=== PATIENT | female | born 1935 | race Caucasian/White ===

== ENCOUNTER → 2016-04-18 | Outpatient (CLI) | payer MEDICARE ==
[~2016-04-18] MED LIST: REGADENOSON 0.4 MG/5 ML SYRINGE IV ONE
--- NOTE | 2016-04-18 12:37 | NM ---
"EXAMINATION TYPE: NM stress lexiscan cardiolite DATE OF EXAM: 04/18/2016 12:17 PM COMPARISON: NONE HISTORY: Abnormal EKG TECHNIQUE: After the intravenous administration of 10.05 mCi Tc 99m Sestamibi - Cardiolite resting S PECT images acquired 34 minutes post injection. The patient received 0.4mg Lexiscan, 27.5 mCi Tc 99m Sestamibi - Stress images obtained [address] injection FINDINGS: Review of stress and rest SPECT images demonstrates reduced uptake involving the anterior and apical septal portion of the myocardium. Reduced regional wall motion activity in the region. Appears be a s mall focal area of stress-induced reversibility involving the apex myocardium. Gated analysis shows n ormal wall motion with an estimated left ventricular ejection fraction of 27 %. IMPRESSION: Findings suggest a small area of stress-induced reversible ischemia apex of the myocardium. Areas of previous fixed defect also noted. Ejection fraction only 27% A Yellow message has been communicated to Axel Cottre MD via the [employer] | Critical Result sy stem on 04/18/2016 12:35 PM, Message ID [id number]."
--- NOTE | 2016-04-18 15:33 | EST ---
DATE OF SERVICE: 04/18/2016 AGE: 80Y SEX: F HT: 5'2" WT: 145 lbs. Protocol Jeffrey: Others: Stage: Dur. of Exercise: *Heart Rate Blood Pressure *Rest: 100 Rest: 105/69 * *Max. Achieved: 110 Maximum BP: 140/62 85% PMHR: 100% PMHR: *METS: INDICATIONS: Abnormal EKG MEDICATIONS: See list. The test is being done to evaluate cardiac status. Baseline EKG showed sinus rhythm with normal UT interval and QRS duration. Standard dose of Lexiscan was infused. EKGs did not reveal any changes. FINAL IMPRESSION: 1. Negative Lexiscan stress test. 2. Report on the nuclear images to be given by the radiologist.
== END | disposition home or self-care (01) ==
LOC: RADNMMAIN 09:04
PROVIDERS: ATTEND Family Medicine
DX: R94.31 Abnormal electrocardiogram [ECG] [EKG] (principal)
CPT/HCPCS: 93017; 78452; A9500; J2785

== ENCOUNTER 2016-05-16 06:32 | Day surgery (SDC) | payer MEDICARE ==
[2016-05-15 11:20] VITALS: BMI 29.2
[~2016-05-16 06:32] MED LIST changes: +ALPRAZolam 0.25 MG TAB PO PRN; +ALPRAZolam 0.5 MG TAB PO PRN; +ASPIRIN 325 MG TAB PO STA; +ATORVASTATIN 80 MG TAB PO STA; +NITROGLYCERIN SL TABS 0.4 MG TAB SUBLINGUAL PRN; -REGADENOSON 0.4 MG/5 ML SYRINGE IV ONE; +SODIUM CHLORIDE 0.9% 1,000 ML in EMPTY BAG 1 BAG IV ONE
[2016-05-16 07:05] LABS: Glucose,Whole Blood 163 mg/dL (75-99)
[2016-05-16] MEDS ORDERED: SODIUM CHLORIDE 0.9% 1,000 ML IV ONE (07:05)
[2016-05-16 07:12] LABS: Basophils # (A) 0.1 k/uL (0-0.2); Basophils % (A) 1 %; CH 26.6; Eosinophils # (A) 0.2 k/uL (0-0.7); Eosinophils % (A) 2 %; HCT 43.2 % (34.0-46.0); HDW 3.09; HGB 13.3 gm/dL (11.4-16.0); Hypochromasia Marked; Luc % (Auto) 4; Lymphocytes # (A) 1.5 k/uL (1.0-4.8); Lymphocytes % (A) 18 %; MCH 27.5 pg (25.0-35.0); MCHC 30.9 g/dL (31.0-37.0); MCV 89.2 fL (80.0-100.0); Mean Platelet Volume 7.4; Monocytes # (A) 0.7 k/uL (0-1.0); Monocytes % (A) 8 %; Neutrophils # (A) 5.9 k/uL (1.3-7.7); Neutrophils % (A) 68 %; RBC 4.84 m/uL (3.80-5.40); RDW 15.4 % (11.5-15.5); WBC 8.8 k/uL (3.8-10.6); WBC (Perox) 8.68
[2016-05-16 07:13] VITALS: TEMP 97.7
[2016-05-16] MEDS ORDERED: LIDOCAINE 2% INJ 20 MG/ML (20 ML MDV) ONE ×2 (07:16→10:56)
[2016-05-16 07:20] LABS: Anion Gap 10 mmol/L; Blood Urea Nitrogen 34 mg/dL (7-17); Calcium 9.3 mg/dL (8.4-10.2); Carbon Dioxide 30 mmol/L (22-30); Chloride 104 mmol/L (98-107); Glucose 181 mg/dL (74-99); Non-African American GFR(MDRD) 60 (>60 ml/min/1.73 sqM); Potassium 4.7 mmol/L (3.5-5.1); Sodium 144 mmol/L (137-145)
[2016-05-16] MEDS ORDERED: fentaNYL (PF) 50 MCG/ML 2 ML AMP ONE (07:33)
[2016-05-16] MEDS ORDERED: diphenhydrAMINE 50 MG/ML 1 ML VIAL ONE ×2 (07:33→10:56)
[2016-05-16] MEDS ORDERED: HEPARIN SODIUM 1,000 UNIT/ML VIAL ONE (07:34)
[2016-05-16] MEDS ORDERED: VERAPAMIL 2.5 MG/ML 2 ML AMP ONE ×2 (07:34→07:37)
[2016-05-16] MEDS ORDERED: SODIUM CHLORIDE 0.9% (PF) 10 ML VIAL ONE ×2 (07:34→07:37)
[2016-05-16] MEDS: fentaNYL (PF) 50 MCG/ML 2 ML AMP IV ONE ×2 (07:55→07:59)
[2016-05-16] MEDS ORDERED: diphenhydrAMINE 50 MG/ML 1 ML VIAL IVP ONE (07:55)
[2016-05-16] MEDS ORDERED: fentaNYL (PF) 50 MCG/ML 2 ML AMP IV ONE (07:59)
[2016-05-16] MEDS ORDERED: LIDOCAINE 2% INJ 20 MG/ML SQ ONE (07:59)
[2016-05-16] MEDS ORDERED: VERAPAMIL SYRINGE (5 MG/10 ML) INTRAARTER ONE (08:00)
[2016-05-16] MEDS ORDERED: HEPARIN SODIUM 1,000 UNIT/ML VIAL IV ONE (08:02)
[2016-05-16] MEDS ORDERED: IOHEXOL 300 MG/ML 100 ML BOTTLE IV ONE (08:15)
[2016-05-16] MEDS ORDERED: RX INFO: IV CONTRAST WAS GIVEN 1 EACH MISC MISCELLANE PRN (08:33)
[2016-05-16] MEDS ORDERED: IPRATROPIUM 0.5 MG/2.5 ML NEBU INHALATION PRN ×2 (08:34→08:37)
[2016-05-16] MEDS ORDERED: SODIUM CHLORIDE 0.9% 1,000 ML IV SCH (08:45)
[2016-05-16] MEDS ORDERED: INSULIN ASPART INJ SCH (08:45)
[2016-05-16] MEDS ORDERED: ATORVASTATIN 20 MG TAB PO SCH (09:00)
[2016-05-16] MEDS ORDERED: LISINOPRIL 2.5 MG TAB PO SCH (09:00)
[2016-05-16] MEDS ORDERED: BUMETANIDE 1 MG TAB PO SCH (09:00)
[2016-05-16] MEDS ORDERED: aMILoride-HCTZ 5-50 mg 1 EACH TAB PO SCH (09:00)
[2016-05-16] MEDS ORDERED: ASPIRIN 81 MG CHEW PO SCH (09:00)
[2016-05-16] MEDS ORDERED: METOPROLOL TARTRATE 25 MG TAB PO SCH (09:00)
[2016-05-16] MEDS ORDERED: MULTIVITAMINS, THERA 1 EACH TAB PO SCH (09:00)
--- NOTE | 2016-05-16 09:06 | CC ---
DATE OF SERVICE: Mrs. Jensen is a 80-year-old female with a history of hypertension, hyperlipidemia, diabetes mellitus, chronic tobacco use, who was diagnosed with a lung mass, was evaluated for surgical intervention, underwent a stress test. This revealed a severely impaired left ventricular systolic function with an apical defect. In view of that, recommendation made cardiac catheterization. The procedure as well as risks and complications were discussed with the patient who is in full understanding and agreement. PROCEDURE: Patient was brought to the [facility] [employer] in a fasting semi-sedated state after receiving fentanyl and Benadryl. She was draped and prepped in conventional fashion. Using Xylocaine anesthesia and Seldinger technique, a 6 Honduran sheath was introduced in the right radial artery. Selective right angiography using 5 Honduran 3-1/2 Bend, right and left Princess catheters, multiple view of the coronary artery including hemiaxial views were obtained. Following that, a 5 Honduran tight pigtail catheter was introduced into the left ventricle and a 30 degree LANCE view of the left ventricle was obtained. Following that, catheter and sheaths were removed. Hemostasis was obtained with deployment of a TR band. There were no immediate complications. Patient is returned to her room in stable condition. Of note, that patient received 4000 units of intravenous heparin as well as intra-arterial verapamil. FINDINGS: FLUOROSCOPY: There is significant calcification involving the proximal left anterior descending artery and the left main as well as the ostial right coronary artery. LEFT MAIN: This is a large-size vessel bifurcating into left circumflex, left anterior descending artery. Left main coronary artery has a 10% plaque distally. LEFT ANTERIOR DESCENDING ARTERY: This is a large-size vessel reaching toward the apex with a wraparound apex segment, giving rise to 2 diagonal branch of moderate to large caliber. The left anterior descending artery in the mid segment has an intimal disease of about 30% without any evidence of high-grade stenosis. LEFT CIRCUMFLEX: This is a nondominant vessel, giving rise to an obtuse marginal branch. The left circumflex has no evidence of high-grade stenosis. RIGHT CORONARY ARTERY: This is a large dominant vessel bifurcating into PDA and posterolateral segment and branches. The right coronary artery in mid segment has mild intimal plaque of 10%. The rest of the vessel has no high-grade stenosis. LEFT VENTRICULOGRAM: Left ventriculogram was performed in 30 degree LANCE view and revealed severe impairment in the left ventricular systolic function. Ejection fraction of 15% with severe global hypokinesis. There was dilatation of the left ventricle and no significant mitral regurgitation. HEMODYNAMICS: There was no gradient across the aortic valve. The left ventricle end-diastolic pressure was 24 to 26 mmHg. CONCLUSION: 1. Calcified coronary arteries. 2. Mild triple vessel coronary artery disease. 3. Severely impaired left ventricular systolic function. RECOMMENDATION: Those findings are consistent with nonischemic cardiomyopathy. At this time, I would recommend to maximize her medical therapy with close followup of her left ventricular systolic function. Patient has been evaluated for possible surgical intervention regarding her lung cancer. The prognosis unfortunately is guarded.
--- NOTE | 2016-05-16 09:09 | LTR ---
May 16, 2016 RE: Rupa Jensen Dear Dr. Cotter; I had the pleasure to perform cardiac catheterization on Mrs. Jensen at [facility] on May 16, 2016 and a full copy of the procedure note will be forwarded to you. In brief, she was found to have a mild triple vessel coronary artery disease with a severely impaired left ventricular systolic function and based on those findings, I have recommended to continue medical therapy. Will optimize her treatment and depending on her progress, further recommendation will be made. Thank you again for allowing me to participate in this patient's care. Please feel to call for any questions. Sincerely yours, ANSHUL JOHNSON MD
[2016-05-16] MEDS ORDERED: MIDAZOLAM 2 MG/2 ML VIAL ONE (10:57)
[2016-05-16] MEDS ORDERED: NITROGLYCERIN SL TABS 0.4 MG TAB SUBLINGUAL ONE (11:11)
[2016-05-16 11:30] VITALS: RESP 16
[2016-05-16] MEDS ORDERED: CLOPIDOGREL 75 MG TAB ONE ×2 (11:39)
[2016-05-16 12:51] VITALS: BP 113/59; PULSE 90
[2016-05-16] MEDS ORDERED: INSULIN GLARGINE 100 UNIT/ML 10 ML VIAL SQ SCH (21:00)
--- NOTE | 2016-05-20 13:17 | CDI ---
Pt Name: Rupa Jensen CONFIDENTIAL MR#: [id number] Adm Date: 05/16/2016 6:32:00 AM Printed:05/20/2016 Physician Documentation Request Page 1 of 1 ICD-10-CM Ready Physicians Documentation Request Patient: Rupa Jensen EPI: [id number] Account: [id number] Payer: MEDICARE HMO Facility: [facility] Location: - Admit Date: 05/16/2016 6:32:00 AM Query Send By: Allyssa West Phone #: Ext. Communication Date: 05/20/2016 1:12:00 PM Clarification Outpatient By submitting this query, we are merely seeking further clarification of documentation to accurately reflect all conditions that you are monitoring, evaluating, treating or that extend the hospitalization or utilize additional resources of care. Please utilize your independent clinical judgment when addressing the question(s) below. Dear Doctor Aide Salazar, The patients Clinical Indicators include: see below Documentation Clarification OP The Cardiac Cath Report states the patient was "semi-sedated" with fentanyl and Benadryl. Please clarify the level of sedation, such as moderate. Thank you! PLEASE DOCUMENT ANY ADDITIONAL DIAGNOSES AND/OR SPECIFICITY IN THE PROGRESS NOTES AND/OR DISCHARGE SUMMARY. Agreed & documented Unable to determine/unknown Disagree with the above request Need to discuss MTDD
--- NOTE | 2016-05-28 09:03 | CDI ---
Pt Name: Rupa Jensen CONFIDENTIAL MR#: [id number] Adm Date: 05/16/2016 6:32:00 AM Printed:05/28/2016 Physician Documentation Request Page 1 of 1 ICD-10-CM Ready Physicians Documentation Request Patient: Rupa Jensen EPI: [id number] Account: [id number] Payer: MEDICARE HMO Facility: [facility] Location: - Admit Date: 05/16/2016 6:32:00 AM Query Send By: Allyssa West Phone #: Ext. Communication Date: 05/28/2016 9:00:00 AM Clarification Outpatient By submitting this query, we are merely seeking further clarification of documentation to accurately reflect all conditions that you are monitoring, evaluating, treating or that extend the hospitalization or utilize additional resources of care. Please utilize your independent clinical judgment when addressing the question(s) below. Dear Doctor Aide Salazar, The patients Clinical Indicators include: see below Documentation Clarification OP The Cardiac Cath Report states the patient was "semi-sedated" with fentanyl and Benadryl. Please clarify the level of sedation, such as moderate. Please document as an addendum. Thank you! PLEASE DOCUMENT ANY ADDITIONAL DIAGNOSES AND/OR SPECIFICITY IN THE PROGRESS NOTES AND/OR DISCHARGE SUMMARY. Agreed & documented Unable to determine/unknown Disagree with the above request Need to discuss MTDD
--- NOTE | 2016-06-04 08:34 | CDI ---
Pt Name: Rupa Jensen CONFIDENTIAL MR#: [id number] Adm Date: 05/16/2016 6:32:00 AM Printed:06/04/2016 Physician Documentation Request Page 1 of 1 ICD-10-CM Ready Physicians Documentation Request Patient: Rupa Jensen EPI: [id number] Account: [id number] Payer: MEDICARE HMO Facility: [facility] Location: - Admit Date: 05/16/2016 6:32:00 AM Query Send By: Allyssa West Phone #: Ext. Communication Date: 06/04/2016 8:33:00 AM Clarification Outpatient By submitting this query, we are merely seeking further clarification of documentation to accurately reflect all conditions that you are monitoring, evaluating, treating or that extend the hospitalization or utilize additional resources of care. Please utilize your independent clinical judgment when addressing the question(s) below. Dear Doctor Aide Salazar, The patients Clinical Indicators include: SEE BELOW Documentation Clarification OP The cardiac cath report states "semi-sedated state after receiving fentanyl and Benadryl." Will you please clarify the level of sedation, such as moderate. This information is required for proper coding and billing purposes. Please answer as an addendum to your op report. If you don't understand what is needed , please contact my manager telemarketing, Denise Fernandez . Thank you. PLEASE DOCUMENT ANY ADDITIONAL DIAGNOSES AND/OR SPECIFICITY IN THE PROGRESS NOTES AND/OR DISCHARGE SUMMARY. Agreed & documented Unable to determine/unknown Disagree with the above request Need to discuss MTDD
--- NOTE | 2016-06-07 12:13 | CC ---
ADDENDUM TO CARDIAC CATHETERIZATION REPORT: Sedation was moderate instead of semi-sedated.
== END 2016-05-16 14:34 | disposition home or self-care (01) ==
LOC: CATHCVL 06:32
PROVIDERS: ATTEND Internal Medicine Interventional Cardiology
DX: I25.10 Atherosclerotic heart disease of native coronary artery without angina pectoris (principal); R94.39 Abnormal result of other cardiovascular function study; I42.9 Cardiomyopathy, unspecified; E78.2 Mixed hyperlipidemia; I10 Essential (primary) hypertension; E11.9 Type 2 diabetes mellitus without complications; F17.210 Nicotine dependence, cigarettes, uncomplicated; E78.00 Pure hypercholesterolemia, unspecified; Z79.84 Long term (current) use of oral hypoglycemic drugs; Z79.4 Long term (current) use of insulin; Z79.899 Other long term (current) drug therapy
CPT/HCPCS: 93458; 80048; 85025; 99152; C1894; C1769; J2001; J1200; J3010; J1644; Q9967

== ENCOUNTER → 2017-01-14 | Outpatient (CLI) | payer MEDICARE ==
--- NOTE | 2017-01-14 19:21 | CT ---
EXAMINATION TYPE: CT chest wo con DATE OF EXAM: 01/14/2017 COMPARISON: 01/31/2016 HISTORY: Shortness of breath. CT DLP: 283.30 mGycm. Automated Exposure Control for Dose Reduction was Utilized. TECHNIQUE: CT scan of the thorax is performed without IV contrast. FINDINGS: There is diffuse pulmonary emphysema. This is more noticeable in the upper lobes. There is a 1.8 cm s tellate nodule adjacent to the aortic arch in the anterior left upper lobe. Heart is enlarged. Ascend ing aorta measures 3.5 cm. There is no pleural effusion. There is no pericardial effusion. There is s ome atherosclerotic vascular calcification. There are spondylotic changes in the thoracic spine. IMPRESSION: Cardiomegaly. Spiculated left upper lobe nodule appears increased slightly in size compar ed to old CT scan of 01/31/2016 and is suspicious for tumor. Follow-up is recommended. This measures 1.3 cm on the old exam. Emphysema.
== END | disposition home or self-care (01) ==
LOC: RADCTMAIN 16:45
PROVIDERS: ATTEND Internal Medicine
DX: J43.9 Emphysema, unspecified (principal); I51.7 Cardiomegaly
CPT/HCPCS: 71250

== ENCOUNTER → 2017-01-25 | Outpatient (CLI) | payer MEDICARE ==
--- NOTE | 2017-01-26 13:38 | PE ---
Nuclear medicine PET/CT HISTORY: Lung mass, pulmonary nodule, R 91.1 Patient received 11.8 mCi F-18 FDG intravenously and delayed scanning was performed from the skull ba se to the mid thighs. Localization and attenuation correction CT was performed, exam is correlated to prior nuclear medicine PET/CT 03/02/2016, chest CT 01/14/2017 Neck and chest: The left upper lobe pulmonary nodule adjacent to the aorta is again seen and shows as sociated hypermetabolic uptake, SUV is 21, the nodule has increased in size as reported on prior CT a nd shows spiculated margins. There is no adenopathy. Heart remains enlarged. There are coronary arter y calcifications. Cystic focus at the cardiophrenic angle on the right is again seen. Abdomen pelvis: There is no adrenal mass. No retroperitoneal adenopathy. Nonobstructive renal calculi suspected. Umbilical hernia contains fat. Extensive uptake associated with bowel is likely physiolog ic. Osseous structures are stable IMPRESSION: Left upper lobe lung nodule is increasing in size and suspicious for bronchogenic carcino ma, consider cardiothoracic surgery consult.
== END | disposition home or self-care (01) ==
LOC: RADPETMAIN 13:09
PROVIDERS: ATTEND Internal Medicine
DX: R91.1 Solitary pulmonary nodule (principal)
CPT/HCPCS: 78815; A9552

== ENCOUNTER → 2017-05-19 | Outpatient (CLI) | payer MEDICARE ==
--- NOTE | 2017-05-19 13:25 | CT ---
EXAMINATION TYPE: CT chest wo con DATE OF EXAM: 05/19/2017 COMPARISON: PET/CT dated 01/25/2017 and 03/02/2016 as well as chest CTs dated 01/14/2017 and 01/31/20 16 HISTORY: Follow up scan. No complaints at time of scan . Pulmonary nodule CT DLP: 351 mGycm. Automated Exposure Control for Dose Reduction was Utilized. TECHNIQUE: CT scan of the thorax is performed without IV contrast. FINDINGS: LUNGS: There is redemonstration of a spiculated 1.1 x 0.9 x 1.3 cm medial left upper lobe pulmonary n odule that is highly suspicious for carcinoma. This measures a maximum SUV of 21 on the prior PET/CT. This is superimposed upon moderate centrilobular emphysematous change. Triangular-shaped scarring or . Fissural lymph node is seen on series 4 image 31 on the right. No new pulmonary nodules are identif ied. Probable area of atelectasis within the right upper lobe on series 4 image 18 medially is unchan ged from the prior. MEDIASTINUM: Lack of IV contrast is noted to limit evaluation for mediastinal and especially hilar ad enopathy. There are no definitive greater than 1 cm hilar or mediastinal lymph nodes. Precarinal lym ph node measures 1 cm in short axis on series 3 image 25. No cardiomegaly or pericardial effusion is seen. Main pulmonary artery and right and left main pulmonary arteries are enlarged which may clinica lly correlate pulmonary arterial hypertension. Moderate three-vessel coronary artery calcifications a nd cardiac valvular calcifications are noted. Heart is mildly enlarged. OTHER: Nonobstructing left-sided renal calculi are redemonstrated. Multilevel moderate degenerative c hanges of the spine are seen. No new suspicious osseous lesion is present. IMPRESSION: 1. Although the medial left upper lobe spiculated pulmonary nodule stable in size this remains highly suspicious for carcinoma with marked hypermetabolic activity on the prior PET/CT. 2. Moderate centrilobular emphysematous change. 3. Enlargement of the main pulmonary artery, which may clinically correlate with pulmonary arterial h ypertension. 4. Moderate three-vessel coronary artery calcifications, marker for coronary artery disease. 5. Redemonstration of nonobstructing left-sided renal calculi.
== END | disposition home or self-care (01) ==
LOC: RADCTMAIN 12:46
PROVIDERS: ATTEND Radiology Diagnostic Radiology
DX: C34.92 Malignant neoplasm of unspecified part of left bronchus or lung (principal); I77.89 Other specified disorders of arteries and arterioles; I25.10 Atherosclerotic heart disease of native coronary artery without angina pectoris; J43.9 Emphysema, unspecified
CPT/HCPCS: 71250

== ENCOUNTER → 2017-09-03 | Outpatient (CLI) | payer MEDICARE ==
[2017-09-03 10:43] LABS: Basophils % (A) 1 %; Eosinophils # (A) 0.1 k/uL (0-0.7); Eosinophils % (A) 2 %; HCT 36.7 % (34.0-46.0); Lymphocytes # (A) 1.3 k/uL (1.0-4.8); Lymphocytes % (A) 19 %; MCH 31.1 pg (25.0-35.0); MCHC 32.9 g/dL (31.0-37.0); MCV 94.7 fL (80.0-100.0); Mean Platelet Volume 7.4; Monocytes # (A) 0.5 k/uL (0-1.0); Monocytes % (A) 7 %; Neutrophils # (A) 4.6 k/uL (1.3-7.7); Neutrophils % (A) 69 %; Platelet Count 204 k/uL (150-450); RBC 3.87 m/uL (3.80-5.40); RDW 13.9 % (11.5-15.5); WBC 6.6 k/uL (3.8-10.6)
[2017-09-03 12:03] LABS: Erythrocyte Sedimentation Rate 26 mm/hr (0-20)
== END | disposition home or self-care (01) ==
LOC: LABWHC1 10:10
PROVIDERS: ATTEND Internal Medicine Gastroenterology
DX: K52.9 Noninfective gastroenteritis and colitis, unspecified (principal)
CPT/HCPCS: 36415; 83516; 85025; 85652; 86140

== ENCOUNTER → 2017-10-16 | Outpatient (CLI) | payer MEDICARE | END | disposition home or self-care (01) | LOC: RADCTMAIN 11:47 | PROVIDERS: ATTEND Radiology Diagnostic Radiology | DX: C34.90 Malignant neoplasm of unspecified part of unspecified bronchus or lung (principal) | CPT/HCPCS: 82565; 84520 ==

== ENCOUNTER → 2017-10-21 | Outpatient (CLI) | payer MEDICARE ==
--- NOTE | 2017-10-21 22:36 | US ---
EXAMINATION TYPE: US kidneys/renal and bladder DATE OF EXAM: 10/21/2017 COMPARISON: NONE CLINICAL HISTORY: 82-year-old female Acute renal failure N17.1; diabetic; lung CA TECHNIQUE: Multiple sonographic images of the kidneys and bladder are obtained. FINDINGS: EXAM MEASUREMENTS: Right Kidney: 7.3 x 4.6 x 4.3 cm Left Kidney: 7.9 x 4.9 x 4.3 cm Post Void Residual Volume: emptied Right Kidney: No hydronephrosis; small size Left Kidney: No hydronephrosis; shadowing echogenic focus in the lower pole measures 9 mm. Additional tiny 3 mm echogenic focus in the midpole is noted. The kidney is small in size. Bladder: not fully distended Bilateral Jets seen: yes Normal Post Void Residual: yes IMPRESSION: 1. No hydronephrosis. 2. Small kidneys compatible with chronic medical renal disease. 3. A couple nonobstructive calculi in the left kidney measuring up to 9 mm. 4. No sonographic evidence for urinary retention.
== END | disposition home or self-care (01) ==
LOC: RADUSWWP 14:27
PROVIDERS: ATTEND Family Medicine
DX: N20.0 Calculus of kidney (principal); N27.1 Small kidney, bilateral; N17.1 Acute kidney failure with acute cortical necrosis
CPT/HCPCS: 76770

== ENCOUNTER 2018-09-01 12:29 | Inpatient (IN) | payer MEDICARE ==
--- NOTE | 2018-09-01 13:06 | ED ---
General Adult HPI - General Chief complaint: Recheck/Abnormal Lab/Rx Stated complaint: Abn labs Time Seen by Provider: 09/01/18 12:45 Source: patient, RN notes reviewed, old records reviewed Mode of arrival: wheelchair Limitations: no limitations - History of Present Illness Initial comments: 83-year-old female with multiple medical problems presenting for evaluation of abnormal outpatient lab. Patient was called yesterday evening at 10 PM indicating that she had a potassium is 6.1H presented to the emergency department. She presented to) For evaluation. She has no complaints. She does have previous lung cancer, history of congestive heart failure, history of chronic kidney disease. She is on 3 L of O2 at home. Denies any worsening dyspnea. Denies cough. Denies chest pain. Denies palpitations. Denies abdominal pain nausea vomiting. - Related Data Home Medications Medication Instructions Recorded Confirmed Aspirin 81 mg PO DAILY 12/23/13 09/01/18 Atorvastatin [Lipitor] 20 mg PO DAILY 12/23/13 09/01/18 INSULIN ASPART (NovoLOG) [NovoLOG See Protocol INJ ACHS 12/23/13 09/01/18 (formulary)] Insulin Glargine [Lantus] 14 units SQ HS 12/23/13 09/01/18 Multivitamins, Thera [Multivitamin 1 tab PO DAILY 12/23/13 09/01/18 (formulary)] aMILoride-HCTZ 5-50 mg [Moduretic 1 tab PO DAILY 12/23/13 09/01/18 5-50] Calcitriol 0.5 mcg PO TUTH 09/01/18 09/01/18 Cholecalciferol [Vitamin D3 (25 1,000 unit PO DAILY 09/01/18 09/01/18 Mcg = 1000 Iu)] Metoprolol Tartrate [Lopressor] 50 mg PO BID 09/01/18 09/01/18 Previous Rx's Medication Instructions Recorded Lisinopril [Zestril] 5 mg PO BID #180 tablet 05/16/16 Allergies Allergy/AdvReac Type Severity Reaction Status Date / Time No Known Allergies Allergy Verified 09/01/18 13:05 Review of Systems ROS Statement: Those systems with pertinent positive or pertinent negative responses have been documented in the HPI. ROS Other: All systems not noted in ROS Statement are negative. Past Medical History Past Medical History: Asthma, Cancer, COPD, Diabetes Mellitus, Hyperlipidemia, Hypertension, Osteoarthritis (OA) Additional Past Medical History / Comment(s): LUNG CANCER-LEFT LUNG, PAIN IN FEET , MACULAR DEGENERATION, EDEMA IN LEG, kidney disease History of Any Multi-Drug Resistant Organisms: None Reported Past Surgical History: Appendectomy, Hernia Repair, Joint Replacement Additional Past Surgical History / Comment(s): UMBILICAL HERNIA, LEFT KNEE REPLACEMENT Past Anesthesia/Blood Transfusion Reactions: No Reported Reaction Past Psychological History: Anxiety Smoking Status: Current every day smoker Past Alcohol Use History: None Reported Past Drug Use History: None Reported - Past Family History Mother Family Medical History: No Reported History Additional Family Medical History / Comment(s): NO KNOWN HISTORY- ADOPTED General Exam Limitations: no limitations General appearance: alert, in no apparent distress Head exam: Present: atraumatic, normocephalic Eye exam: Present: normal appearance. Absent: PERRL, EOMI ENT exam: Present: mucous membranes dry Neck exam: Present: normal inspection. Absent: tenderness, meningismus Respiratory exam: Present: wheezes, decreased breath sounds. Absent: respiratory distress Cardiovascular Exam: Present: normal rhythm, bradycardia Extremities exam: Present: normal capillary refill, pedal edema, other (Erythema, chronic venous stasis) Neurological exam: Present: alert, oriented X3, CN II-XII intact. Absent: motor sensory deficit Psychiatric exam: Present: normal affect, normal mood Skin exam: Present: warm, dry, intact. Absent: cyanosis, diaphoretic Course Vital Signs 09/01/18 09/01/18 09/01/18 12:38 14:19 14:35 Temperature 98.3 F Pulse Rate 55 L 50 L 70 Respiratory 26 H 18 Rate Blood Pressure 136/60 123/60 O2 Sat by Pulse 91 L 96 Oximetry EKG Findings - EKG Comments: EKG Findings:: EKG: Sinus bradycardia, right axis, no ST segment elevation, rate of 49, FL interval 152, QRS duration 86, QTC 411 Medical Decision Making - Medical Decision Making 83-year-old female with abnormal outpatient lab testing. Potassium 6.1. Patient is bradycardic in the 40s. Blood pressure stable. Repeat potassium is 6.2. Patient is given hyperkalemia medications in the emergency department. I discussed the case with Dr. Neda badillo for nephrology. He is familiar with this patient. He is able to evaluate her in the emergency department. Patient is adamant that she will not be admitted. I did admit this patient for hyperkalemia, discussed the case with her primary care physician Dr. Cotter who is agreeable with admission. Ultimately patient continues to refuse admission. She is agreeable with repeat testing of potassium in the emergency department. Repeat potassium is performed, repeat is 5. Patient's bradycardia is resolved. Nephrology did recommend holding amiloride and lisinopril. Replacing this with Norvasc 10 mg. She is given a prescription for Norvasc she will follow-up with nephrology for repeat testing in 2-3 days. - Lab Data Result diagrams: 09/01/18 13:20 09/01/18 17:42 Lab Results 09/01/18 09/01/18 09/01/18 Range/Units 13:20 13:20 13:20 WBC 5.8 (3.8-10.6) k/uL RBC 4.15 (3.80-5.40) m/uL Hgb 12.9 (11.4-16.0) gm/dL Hct 41.1 (34.0-46.0) % MCV 98.9 (80.0-100.0) fL MCH 31.0 (25.0-35.0) pg MCHC 31.4 (31.0-37.0) g/dL RDW 13.5 (11.5-15.5) % Plt Count 187 (150-450) k/uL Neutrophils % 72 % Lymphocytes % 18 % Monocytes % 5 % Eosinophils % 2 % Basophils % 1 % Neutrophils # 4.2 (1.3-7.7) k/uL Lymphocytes # 1.1 (1.0-4.8) k/uL Monocytes # 0.3 (0-1.0) k/uL Eosinophils # 0.1 (0-0.7) k/uL Basophils # 0.0 (0-0.2) k/uL Hypochromasia Slight PT 10.2 (9.0-12.0) sec INR 0.9 (<1.2) APTT 24.4 (22.0-30.0) sec Sodium 141 (137-145) mmol/L Potassium 6.2 H* (3.5-5.1) mmol/L Chloride 102 (98-107) mmol/L Carbon Dioxide 37 H (22-30) mmol/L Anion Gap 2 mmol/L BUN 21 H (7-17) mg/dL Creatinine 1.28 H (0.52-1.04) mg/dL Est GFR (CKD-EPI)AfAm 46 (>60 ml/min/1.73 sqM) Est GFR (CKD-EPI)NonAf 40 (>60 ml/min/1.73 sqM) Glucose 198 H (74-99) mg/dL Calcium 9.4 (8.4-10.2) mg/dL Magnesium 1.9 (1.6-2.3) mg/dL Total Bilirubin 0.7 (0.2-1.3) mg/dL AST 28 (14-36) U/L ALT 33 (9-52) U/L Alkaline Phosphatase 126 (38-126) U/L Total Protein 6.6 (6.3-8.2) g/dL Albumin 3.9 (3.5-5.0) g/dL Critical Care Time Critical Care Time: Yes Total Critical Care Time: 35 Disposition Clinical Impression: Hyperkalemia, Bradycardia Disposition: ADMITTED IP TO THIS [facility] Condition: Serious Is patient prescribed a controlled substance at d/c from ED?: No Decision to Admit Reason: Admit from EC Decision Date: 09/01/18 Decision Time: 14:37
[2018-09-01 13:33] LABS: Basophils % (A) 1 %; Eosinophils # (A) 0.1 k/uL (0-0.7); Eosinophils % (A) 2 %; HCT 41.1 % (34.0-46.0); HGB 12.9 gm/dL (11.4-16.0); Hypochromasia Slight; Lymphocytes # (A) 1.1 k/uL (1.0-4.8); Lymphocytes % (A) 18 %; MCHC 31.4 g/dL (31.0-37.0); MCV 98.9 fL (80.0-100.0); Mean Platelet Volume 7.8; Monocytes # (A) 0.3 k/uL (0-1.0); Monocytes % (A) 5 %; Neutrophils # (A) 4.2 k/uL (1.3-7.7); Neutrophils % (A) 72 %; Platelet Count 187 k/uL (150-450); RBC 4.15 m/uL (3.80-5.40); RDW 13.5 % (11.5-15.5); WBC 5.8 k/uL (3.8-10.6)
[2018-09-01 13:41] LABS: Albumin 3.9 g/dL (3.5-5.0); Calcium 9.4 mg/dL (8.4-10.2); Magnesium 1.9 mg/dL (1.6-2.3); Total Bilirubin 0.7 mg/dL (0.2-1.3); Total Protein 6.6 g/dL (6.3-8.2)
[2018-09-01 13:46] LABS: INR 0.9 (<1.2); Partial Thromboplastin Time 24.4 sec (22.0-30.0); Prothrombin Time 10.2 sec (9.0-12.0)
[2018-09-01 13:49] LABS: Potassium 6.2 mmol/L (3.5-5.1)
[2018-09-01] MEDS ORDERED: CALCIUM GLUCONATE 1 GM in SODIUM CHLORIDE 0.9% 100 ML IVPB ONE (13:50)
[2018-09-01] MEDS ORDERED: SODIUM POLYSTYRENE SULFONATE 15 GM/60 ML BOTTLE PO ONE (13:50)
[2018-09-01] MEDS ORDERED: ALBUTEROL NEB (CONC) 2.5 MG/0.5 ML INHALATION ONE (13:50)
[2018-09-01] MEDS ORDERED: SODIUM BICARB 8.4% 50 ML SYR (1 MEQ/ML) IV ONE (13:59)
[2018-09-01] MEDS ORDERED: INSULIN REGULAR 100 UNIT/ML VIAL IV ONE (13:59)
[2018-09-01] MEDS ORDERED: DEXTROSE 50% SYRINGE 50 ML IVP ONE (13:59)
--- NOTE | 2018-09-01 14:11 | XR ---
EXAMINATION TYPE: XR chest 2V DATE OF EXAM: 09/01/2018 COMPARISON: Chest CT May 19, 2017. PET CT January 25, 2017 HISTORY: History of lung cancer with chest pain per order. TECHNIQUE: Frontal and lateral views of the chest are obtained. FINDINGS: There is background chronic emphysematous change without suspicious focal air space opacit y, pleural effusion, or pneumothorax seen. The cardiac silhouette size is enlarged with left ventric ular dilatation seen on lateral view. The osseous structures are intact. Left upper lobe neoplasm n ot well seen on x-ray versus CT and PET/CT. IMPRESSION: Chronic emphysematous change and cardiomegaly without acute pulmonary process.
[2018-09-01] MEDS ORDERED: NALOXONE 0.4 MG/ML 1 ML VIAL IV PRN (14:22)
[2018-09-01] MEDS ORDERED: SODIUM CHLORIDE 0.9% 1,000 ML IV SCH (14:30)
--- NOTE | 2018-09-01 14:59 | P.NPCON ---
History of Present Illness - Reason for Consult chronic renal failure, hyperkalemia - History of Present Illness Reason for consultation: Hyperkalemia and chronic kidney disease History of present illness: Patient is a 83-year-old female seen in consultation for chronic kidney disease and hyperkalemia. Patient has chronic kidney disease stage III with baseline creatinine near 1.5 secondary to diabetic kidney disease. Patient had blood work done outpatient and was noted to have high potassium level. She was advised to go to the hospital for further care. Patient presented to the hospital today her potassium level was 6.2. Patient was taking amiloride as well as lisinopril at home. Denies chest pain or shortness of breath. No vomiting or diarrhea. Urine output is good. No hematuria or dysuria. Blood glucose was 198. She is not acidotic. Hemodynamically stable. Patient was noted to be bradycardic with heart rate in the low 50s on admission. It is now in the 70s. Patient is very hesitant to stay. She has received medical management for hyperkalemia. Again the patient is refusing to stay in the hospital overnight at this time. Patient was seen in the emergency room. Vital signs are stable. General: The patient appeared well nourished and normally developed. HEENT: Head exam is unremarkable. Neck is without jugular venous distension. LUNGS: Lungs are clear to auscultation and percussion. Breath sounds decreased. HEART: Rate and Rhythm are regular. First and second heart sounds normal. No murmurs, rubs or gallops. ABDOMEN: Abdominal exam reveals normal bowel sounds. Non-tender and non- distended. No evidence of peritonitis. EXTREMITITES: No clubbing, cyanosis, or edema. Past Medical History Past Medical History: Asthma, Cancer, COPD, Diabetes Mellitus, Hyperlipidemia, Hypertension, Osteoarthritis (OA) Additional Past Medical History / Comment(s): LUNG CANCER-LEFT LUNG, PAIN IN FEET , MACULAR DEGENERATION, EDEMA IN LEG, kidney disease History of Any Multi-Drug Resistant Organisms: None Reported Past Surgical History: Appendectomy, Hernia Repair, Joint Replacement Additional Past Surgical History / Comment(s): UMBILICAL HERNIA, LEFT KNEE REPLACEMENT Past Anesthesia/Blood Transfusion Reactions: No Reported Reaction Past Psychological History: Anxiety Smoking Status: Current every day smoker Past Alcohol Use History: None Reported Past Drug Use History: None Reported - Past Family History Mother Family Medical History: No Reported History Additional Family Medical History / Comment(s): NO KNOWN HISTORY- ADOPTED Medications and Allergies Home Medications Medication Instructions Recorded Confirmed Type Aspirin 81 mg PO DAILY 12/23/13 09/01/18 History Atorvastatin [Lipitor] 20 mg PO DAILY 12/23/13 09/01/18 History INSULIN ASPART (NovoLOG) [NovoLOG See Protocol INJ ACHS 12/23/13 09/01/18 History (formulary)] Insulin Glargine [Lantus] 14 units SQ HS 12/23/13 09/01/18 History Multivitamins, Thera [Multivitamin 1 tab PO DAILY 12/23/13 09/01/18 History (formulary)] aMILoride-HCTZ 5-50 mg [Moduretic 1 tab PO DAILY 12/23/13 09/01/18 History 5-50] Lisinopril [Zestril] 5 mg PO BID #180 tablet 05/16/16 09/01/18 Rx Calcitriol 0.5 mcg PO TUTH 09/01/18 09/01/18 History Cholecalciferol [Vitamin D3 (25 1,000 unit PO DAILY 09/01/18 09/01/18 History Mcg = 1000 Iu)] Metoprolol Tartrate [Lopressor] 50 mg PO BID 09/01/18 09/01/18 History Allergies Allergy/AdvReac Type Severity Reaction Status Date / Time No Known Allergies Allergy Verified 09/01/18 13:05 Physical Exam Vitals: Vital Signs Temp Pulse Resp BP Pulse Ox 09/01/18 14:35 70 18 123/60 96 09/01/18 14:19 50 L 09/01/18 12:38 98.3 F 55 L 26 H 136/60 91 L Intake and Output 08/31/18 09/01/18 09/01/18 22:59 06:59 14:59 Other: Weight 76.204 kg Results - Lab Results Most recent lab results Calcium 9.4 mg/dL (8.4-10.2) 09/01/18 13:20 Magnesium 1.9 mg/dL (1.6-2.3) 09/01/18 13:20 09/01/18 13:20 09/01/18 13:20 Assessment and Plan Plan: Assessment: 1. Chronic kidney disease stage III secondary to diabetic kidney disease with baseline creatinine near 1.5. GFR at baseline. 2. Hyperkalemia secondary to amiloride and lisinopril. Blood sugars are not too high. No evidence of acidosis. 3. Insulin-dependent diabetes mellitus. 4. Hypertension with chronic kidney disease. Controlled. 5. Chronic kidney disease mineral bone disease maintained on calcitriol. Plan: Patient received IV calcium, Kayexalate, IV insulin, sodium bicarbonate as well as nebulized albuterol in the emergency room. Repeat potassium level at 5:30 PM today. Amiloride and lisinopril are both held. I will add amlodipine for blood pressure control. If potassium level has normalized in the evening, she can be discharged home. Repeat BMP in 2-3 days postdischarge. Patient is very hesitant to stay in the hospital today. Case discussed with the emergency room physician. Thank you for the consultation. I will continue to follow the patient with you during her hospital stay.
[2018-09-01 18:04] LABS: Calcium 9.3 mg/dL (8.4-10.2)
[2018-09-01 18:31] VITALS: BP 122/58; PULSE 72; RESP 16; TEMP 98.2
== END 2018-09-01 18:14 | disposition home or self-care (01) | DRG 641 ==
LOC: EC 12:29 → 3SCARD 14:22
PROVIDERS: ADMIT Family Medicine; ATTEND Family Medicine
DX: E87.5 Hyperkalemia (principal); I13.0 Hypertensive heart and chronic kidney disease with heart failure and stage 1 through stage 4 chronic kidney disease, or unspecified chronic kidney disease; E11.22 Type 2 diabetes mellitus with diabetic chronic kidney disease; I50.9 Heart failure, unspecified; J44.9 Chronic obstructive pulmonary disease, unspecified; E83.9 Disorder of mineral metabolism, unspecified; R00.1 Bradycardia, unspecified; N18.3 Chronic kidney disease, stage 3 (moderate); E78.5 Hyperlipidemia, unspecified; M19.90 Unspecified osteoarthritis, unspecified site; H35.30 Unspecified macular degeneration; F17.200 Nicotine dependence, unspecified, uncomplicated; Z99.81 Dependence on supplemental oxygen; Z79.82 Long term (current) use of aspirin; Z79.4 Long term (current) use of insulin; Z79.899 Other long term (current) drug therapy; Z85.118 Personal history of other malignant neoplasm of bronchus and lung; Z90.49 Acquired absence of other specified parts of digestive tract; Z96.652 Presence of left artificial knee joint; Z98.890 Other specified postprocedural states; Z86.59 Personal history of other mental and behavioral disorders
CPT/HCPCS: 36415; 71046; 80048; 80053; 83735; 85025; 85610; 85730; 93005; 94640; 96365; 96375; 99291

== ENCOUNTER 2018-09-22 15:28 | Inpatient (IN) | payer MEDICARE ==
[2018-09-22] MEDS ORDERED: SODIUM CHLORIDE 0.9% 1,000 ML IV STA (15:48)
[2018-09-22] MEDS ORDERED: IPRATROPIUM-ALBUTEROL 3 ML NEB INHALATION STA (15:48)
[2018-09-22] MEDS ORDERED: FUROSEMIDE 10 MG/ML 4 ML VIAL IV STA (15:49)
--- NOTE | 2018-09-22 15:55 | ED ---
SOB HPI - General Chief Complaint: Shortness of Breath Stated Complaint: SOB Time Seen by Provider: 09/22/18 15:34 Source: patient, EMS, RN notes reviewed, old records reviewed Mode of arrival: EMS Limitations: no limitations - History of Present Illness Initial Comments: Patient is an 83-year-old female who presents emergency department today for evaluation for shortness of breath worsening over the past 4 days. Patient has a history of lung cancer, COPD, and CHF. Patient reports that she has noticed some increased swelling into her legs. She denies any significant fever or chills. She states that she's had no significant cough. Patient relates that she's had radiation treatment for lung cancer.Patient reports that she sees a Dr. De Leon for pulmonology and Dr. Salazar for cardiology. Patient reports that her shortness of breath is worse with laying down at night. - Related Data Home Medications Medication Instructions Recorded Confirmed Aspirin 81 mg PO DAILY 12/23/13 09/01/18 Atorvastatin [Lipitor] 20 mg PO DAILY 12/23/13 09/01/18 INSULIN ASPART (NovoLOG) [NovoLOG See Protocol INJ ACHS 12/23/13 09/01/18 (formulary)] Insulin Glargine [Lantus] 14 units SQ HS 12/23/13 09/01/18 Multivitamins, Thera [Multivitamin 1 tab PO DAILY 12/23/13 09/01/18 (formulary)] aMILoride-HCTZ 5-50 mg [Moduretic 1 tab PO DAILY 12/23/13 09/01/18 5-50] Calcitriol 0.5 mcg PO TUTH 09/01/18 09/01/18 Cholecalciferol [Vitamin D3 (25 1,000 unit PO DAILY 09/01/18 09/01/18 Mcg = 1000 Iu)] Metoprolol Tartrate [Lopressor] 50 mg PO BID 09/01/18 09/01/18 Previous Rx's Medication Instructions Recorded Lisinopril [Zestril] 5 mg PO BID #180 tablet 05/16/16 amLODIPine [Norvasc] 10 mg PO DAILY #15 tablet 09/01/18 Allergies Allergy/AdvReac Type Severity Reaction Status Date / Time No Known Allergies Allergy Verified 09/01/18 13:05 Review of Systems ROS Statement: Those systems with pertinent positive or pertinent negative responses have been documented in the HPI. ROS Other: All systems not noted in ROS Statement are negative. Past Medical History Past Medical History: Asthma, Cancer, COPD, Diabetes Mellitus, Hyperlipidemia, Hypertension, Osteoarthritis (OA) Additional Past Medical History / Comment(s): LUNG CANCER-LEFT LUNG, PAIN IN FEET , MACULAR DEGENERATION, EDEMA IN LEG, kidney disease History of Any Multi-Drug Resistant Organisms: None Reported Past Surgical History: Appendectomy, Hernia Repair, Joint Replacement Additional Past Surgical History / Comment(s): UMBILICAL HERNIA, LEFT KNEE REP LACEMENT Past Anesthesia/Blood Transfusion Reactions: No Reported Reaction Past Psychological History: Anxiety Smoking Status: Current every day smoker Past Alcohol Use History: None Reported Past Drug Use History: None Reported - Past Family History Mother Family Medical History: No Reported History Additional Family Medical History / Comment(s): NO KNOWN HISTORY- ADOPTED General Exam - General Exam Comments Initial Comments: 83-year-old female. Alert and oriented 3. No significant distress. Limitations: no limitations General appearance: alert, in no apparent distress Head exam: Present: atraumatic, normocephalic, normal inspection Eye exam: Present: normal appearance, PERRL, EOMI. Absent: scleral icterus, conjunctival injection, periorbital swelling ENT exam: Present: normal exam, mucous membranes moist Neck exam: Present: normal inspection. Absent: tenderness, meningismus, lymphadenopathy Respiratory exam: Present: decreased breath sounds (bilaterally). Absent: normal lung sounds bilaterally, respiratory distress, wheezes, rales, rhonchi, stridor Cardiovascular Exam: Present: regular rate, normal rhythm, normal heart sounds. Absent: systolic murmur, diastolic murmur, rubs, gallop, clicks GI/Abdominal exam: Present: soft, normal bowel sounds. Absent: distended, tenderness, guarding, rebound, rigid Extremities exam: Present: normal inspection, full ROM, normal capillary refill, pedal edema (4+ bilateral pedal edema.). Absent: tenderness, joint swelling, calf tenderness Back exam: Present: normal inspection Neurological exam: Present: alert, oriented X3, CN II-XII intact Psychiatric exam: Present: normal affect, normal mood Skin exam: Present: warm, dry, intact, normal color. Absent: rash Course Vital Signs 09/22/18 09/22/18 09/22/18 15:56 16:07 16:23 Temperature 97.9 F Pulse Rate 76 68 74 Respiratory 17 Rate Blood Pressure 148/71 O2 Sat by Pulse 94 L Oximetry Medical Decision Making - Medical Decision Making This is a 83-year-old female presents today with dyspnea for the past 4 days. Worse with laying down and worse at night. She has also bilateral peripheral edema. Patient has diminished lung sounds throughout. She is breathing treatment and history of lung cancer COPD chest. Patient was given a dose of Lasix. Patient's chest x-ray shows evidence of pulmonary edema. Patient labwork was reviewed. She does have a mildly elevated troponin. She denies any significant chest pain this time. Patient's troponin elevation is likely due to CHF. Patient will be admitted at this time, given an aspirin. We will trend the troponin and she is not having any chest pain symptoms at this time. Patient case discussed with Dr. BUN. Kelly the Patient to Dr. Cotter with consults to the patient's care clinician. - Lab Data Result diagrams: 09/22/18 15:42 09/22/18 15:42 Lab Results 09/22/18 09/22/18 09/22/18 Range/Units 15:42 15:42 15:42 WBC 5.6 (3.8-10.6) k/uL RBC 3.89 (3.80-5.40) m/uL Hgb 12.1 (11.4-16.0) gm/dL Hct 38.4 (34.0-46.0) % MCV 98.6 (80.0-100.0) fL MCH 31.2 (25.0-35.0) pg MCHC 31.6 (31.0-37.0) g/dL RDW 13.1 (11.5-15.5) % Plt Count 215 (150-450) k/uL Neutrophils % 67 % Lymphocytes % 21 % Monocytes % 8 % Eosinophils % 2 % Basophils % 1 % Neutrophils # 3.7 (1.3-7.7) k/uL Lymphocytes # 1.2 (1.0-4.8) k/uL Monocytes # 0.4 (0-1.0) k/uL Eosinophils # 0.1 (0-0.7) k/uL Basophils # 0.0 (0-0.2) k/uL Hypochromasia Slight PT (9.0-12.0) sec INR (<1.2) APTT (22.0-30.0) sec Sodium 141 (137-145) mmol/L Potassium 4.4 (3.5-5.1) mmol/L Chloride 97 L (98-107) mmol/L Carbon Dioxide 40 H (22-30) mmol/L Anion Gap 4 mmol/L BUN 20 H (7-17) mg/dL Creatinine 0.86 (0.52-1.04) mg/dL Est GFR (CKD-EPI)AfAm 74 (>60 ml/min/1.73 sqM) Est GFR (CKD-EPI)NonAf 64 (>60 ml/min/1.73 sqM) Glucose 208 H (74-99) mg/dL Plasma Lactic Acid Jose (0.7-2.0) mmol/L Calcium 9.0 (8.4-10.2) mg/dL Magnesium 1.8 (1.6-2.3) mg/dL Total Bilirubin 0.9 (0.2-1.3) mg/dL AST 30 (14-36) U/L ALT 29 (9-52) U/L Alkaline Phosphatase 107 (38-126) U/L Troponin I (0.000-0.034) ng/mL NT-Pro-B Natriuret Pep 6200 pg/mL Total Protein 6.3 (6.3-8.2) g/dL Albumin 3.7 (3.5-5.0) g/dL 09/22/18 09/22/18 09/22/18 Range/Units 15:42 15:42 15:42 WBC (3.8-10.6) k/uL RBC (3.80-5.40) m/uL Hgb (11.4-16.0) gm/dL Hct (34.0-46.0) % MCV (80.0-100.0) fL MCH (25.0-35.0) pg MCHC (31.0-37.0) g/dL RDW (11.5-15.5) % Plt Count (150-450) k/uL Neutrophils % % Lymphocytes % % Monocytes % % Eosinophils % % Basophils % % Neutrophils # (1.3-7.7) k/uL Lymphocytes # (1.0-4.8) k/uL Monocytes # (0-1.0) k/uL Eosinophils # (0-0.7) k/uL Basophils # (0-0.2) k/uL Hypochromasia PT 11.4 (9.0-12.0) sec INR 1.1 (<1.2) APTT 25.4 (22.0-30.0) sec Sodium (137-145) mmol/L Potassium (3.5-5.1) mmol/L Chloride (98-107) mmol/L Carbon Dioxide (22-30) mmol/L Anion Gap mmol/L BUN (7-17) mg/dL Creatinine (0.52-1.04) mg/dL Est GFR (CKD-EPI)AfAm (>60 ml/min/1.73 sqM) Est GFR (CKD-EPI)NonAf (>60 ml/min/1.73 sqM) Glucose (74-99) mg/dL Plasma Lactic Acid Jose 1.0 (0.7-2.0) mmol/L Calcium (8.4-10.2) mg/dL Magnesium (1.6-2.3) mg/dL Total Bilirubin (0.2-1.3) mg/dL AST (14-36) U/L ALT (9-52) U/L Alkaline Phosphatase (38-126) U/L Troponin I 0.038 H* (0.000-0.034) ng/mL NT-Pro-B Natriuret Pep pg/mL Total Protein (6.3-8.2) g/dL Albumin (3.5-5.0) g/dL 09/22/18 15:56 EKG shows NSR with Right axis deviation. 76 bpm, 158 ms. QRS 90 ms. Qt/Qtc 378/425 ms. - Radiology Data Radiology results: report reviewed Chest x-ray shows cardiogenic interstitial phase pulmonary edema radiographically pattern. Disposition Clinical Impression: Acute CHF, Dyspnea, Elevated troponin Disposition: ADMITTED IP TO THIS HOSP Condition: Stable Is patient prescribed a controlled substance at d/c from ED?: No Referrals: Axel Cotter MD [Primary Care Provider] - 1-2 days Time of Disposition: 17:22
[2018-09-22 16:10] LABS: Basophils % (A) 1 %; Eosinophils # (A) 0.1 k/uL (0-0.7); Eosinophils % (A) 2 %; HCT 38.4 % (34.0-46.0); HGB 12.1 gm/dL (11.4-16.0); Hypochromasia Slight; Lymphocytes # (A) 1.2 k/uL (1.0-4.8); Lymphocytes % (A) 21 %; MCH 31.2 pg (25.0-35.0); MCHC 31.6 g/dL (31.0-37.0); MCV 98.6 fL (80.0-100.0); Mean Platelet Volume 7.7; Monocytes # (A) 0.4 k/uL (0-1.0); Monocytes % (A) 8 %; Neutrophils # (A) 3.7 k/uL (1.3-7.7); Neutrophils % (A) 67 %; Platelet Count 215 k/uL (150-450); RBC 3.89 m/uL (3.80-5.40); RDW 13.1 % (11.5-15.5); WBC 5.6 k/uL (3.8-10.6)
[2018-09-22 16:19] LABS: INR 1.1 (<1.2); Partial Thromboplastin Time 25.4 sec (22.0-30.0); Prothrombin Time 11.4 sec (9.0-12.0)
[2018-09-22 16:24] LABS: Albumin 3.7 g/dL (3.5-5.0); Magnesium 1.8 mg/dL (1.6-2.3); Potassium 4.4 mmol/L (3.5-5.1); Total Bilirubin 0.9 mg/dL (0.2-1.3); Total Protein 6.3 g/dL (6.3-8.2)
--- NOTE | 2018-09-22 16:48 | XR ---
EXAMINATION: XR chest 2V DATE AND TIME: 09/22/2018 4:35 PM CLINICAL INDICATION: PHH; difficulty breathing TECHNIQUE: Departmental protocol COMPARISON: 09/01/2018 FINDINGS: The lungs demonstrate a fine reticular pattern of increased attenuation moderately silhouetting the p ulmonary vasculature arborization. This silhouetting is symmetric and is consistent with mild-moderat e interstitial phase pulmonary edema, not seen on the prior study. The pleural spaces are positive for small bilateral pleural effusions. There are no abnormal gas collections. The cardiac silhouette is moderately enlarged; remainder of the mediastinal silhouette is unremarkabl e. The skeletal structures and soft tissues are negative for acute findings. IMPRESSION: Cardiogenic interstitial phase pulmonary edema radiographic pattern.
[2018-09-22] MEDS ORDERED: ASPIRIN 325 MG TAB PO STA (17:16)
[2018-09-22 17:45] LABS: Appearance,Urine Clear (Clear); Bilirubin,Urine Negative (Negative); Blood,Urine Negative (Negative); Color,Urine Colorless; Glucose,Urine (UA) Negative (Negative); Ketones,Urine Negative (Negative); Leukocyte Esterase,Urine Negative (Negative); Nitrite,Urine Negative (Negative); PH, Urine 6.5 (5.0-8.0); Protein,Urine Trace (Negative); Specific Gravity,Urine 1.006 (1.001-1.035); Urobilinogen,Urine <2.0 mg/dL (<2.0)
[2018-09-22] MEDS: NITROGLYCERIN OINT 1 INCH/GM PACKET TOPICAL SCH ×2 (18:40→23:14)
[2018-09-22] MEDS: CALCITRIOL 0.25 MCG CAP PO SCH (20:31)
[2018-09-22] MEDS: LISINOPRIL 5 MG TAB PO SCH (20:32)
[2018-09-22] MEDS: METOPROLOL TARTRATE 50 MG TAB PO SCH (20:32)
[2018-09-22 20:48] LABS: Glucose,Whole Blood 287 mg/dL (75-99)
[2018-09-22] MEDS: INSULIN DETEMIR (LEVEMIR) 100 UNIT/ML SYR SQ SCH (21:59)
[2018-09-22] MEDS: INSULIN ASPART (NovoLOG) 100 UNIT/ML VIAL SQ SCH (21:59)
[2018-09-22] MEDS: FUROSEMIDE 10 MG/ML 4 ML VIAL IV SCH (23:14)
[2018-09-23 06:53] LABS: Glucose,Whole Blood 78 mg/dL (75-99)
[2018-09-23] MEDS: INSULIN ASPART (NovoLOG) 100 UNIT/ML VIAL SQ SCH ×4 (06:55→22:33)
--- NOTE | 2018-09-23 07:55 | P.HPIM ---
History of Present Illness H&P Date: 09/23/18 Chief Complaint: Shortness of breath. This is a history of physical and 83-year-old white female with known history of cardiomyopathy and element of COPD. She's had significantly poor ejection fraction the past in the 20 percentile and she was supposed to be admitted last week but signed out AGAINST MEDICAL ADVICE due to family obligation. She slowly continued to become more dyspneic and she was evaluated yesterday and had significant interstitial edema and she is admitted for acute on chronic congestive heart failure. No other voiding difficulties. Element of senility is also noted in the past. Review of Systems Constitutional: Denies chills, Denies fever Eyes: denies blurred vision, denies pain Ears, nose, mouth and throat: Denies headache, Denies sore throat Cardiovascular: Reports leg edema, Reports shortness of breath Respiratory: Denies cough Gastrointestinal: Denies abdominal pain, Denies diarrhea, Denies nausea, Denies vomiting Genitourinary: Denies dysuria, Denies hematuria Past Medical History Past Medical History: Asthma, Cancer, COPD, Diabetes Mellitus, Hyperlipidemia, Hypertension, Osteoarthritis (OA) Additional Past Medical History / Comment(s): LUNG CANCER-LEFT LUNG, PAIN IN FEET , MACULAR DEGENERATION, EDEMA IN LEG, kidney disease History of Any Multi-Drug Resistant Organisms: None Reported Past Surgical History: Appendectomy, Hernia Repair, Joint Replacement Additional Past Surgical History / Comment(s): UMBILICAL HERNIA, LEFT KNEE REPLACEMENT Past Anesthesia/Blood Transfusion Reactions: No Reported Reaction Past Psychological History: Anxiety Smoking Status: Former smoker Past Alcohol Use History: None Reported Additional Past Alcohol Use History / Comment(s): STARTED SMOKING AT AGE 14 SMOKES 5-7 CIG ("MACHINE") PER DAY NOW PRIOR UP TO 2 PACKS Past Drug Use History: None Reported - Past Family History Mother Family Medical History: No Reported History Additional Family Medical History / Comment(s): NO KNOWN HISTORY- ADOPTED Medications and Allergies Home Medications Medication Instructions Recorded Confirmed Type Aspirin 81 mg PO DAILY 12/23/13 09/22/18 History Atorvastatin [Lipitor] 20 mg PO DAILY 12/23/13 09/22/18 History INSULIN ASPART (NovoLOG) [NovoLOG See Protocol INJ ACHS 12/23/13 09/22/18 History (formulary)] Insulin Glargine [Lantus] 17 units SQ HS 12/23/13 09/22/18 History Multivitamins, Thera [Multivitamin 1 tab PO DAILY 12/23/13 09/22/18 History (formulary)] aMILoride-HCTZ 5-50 mg [Moduretic 1 tab PO DAILY 12/23/13 09/22/18 History 5-50] Lisinopril [Zestril] 5 mg PO BID #180 tablet 05/16/16 09/22/18 Rx Calcitriol 0.5 mcg PO TUTH 09/01/18 09/22/18 History Cholecalciferol [Vitamin D3 (25 1,000 unit PO DAILY 09/01/18 09/22/18 History Mcg = 1000 Iu)] Metoprolol Tartrate [Lopressor] 50 mg PO BID 09/01/18 09/22/18 History amLODIPine [Norvasc] 10 mg PO DAILY #15 tablet 09/01/18 09/22/18 Rx Allergies Allergy/AdvReac Type Severity Reaction Status Date / Time No Known Allergies Allergy Verified 09/22/18 17:54 Physical Exam Vitals: Vital Signs Temp Pulse Pulse Resp BP BP Pulse Ox 09/23/18 07:36 97.5 F L 68 20 130/60 96 09/23/18 03:21 97.8 F 65 20 124/97 94 L 09/22/18 23:20 68 18 144/84 96 09/22/18 20:00 97.8 F 97 18 132/62 93 L 09/22/18 18:55 98 F 18 152/67 98 09/22/18 17:43 83 L 09/22/18 17:41 60 17 135/61 95 09/22/18 16:23 74 09/22/18 16:07 68 09/22/18 15:56 97.9 F 76 17 148/71 94 L Intake and Output 09/22/18 09/23/18 09/23/18 22:59 06:59 14:59 Intake Total 1000 400 Output Total 500 1000 Balance 500 400 -1000 Intake: Amount of Fluid Infused ( 1000 ml) Oral 400 Output: Urine 500 1000 Other: Voiding Method Bedside Commode Weight 74.843 kg 78.7 kg - Constitutional General appearance: no acute distress - EENT Eyes: EOMI - Neck Neck: no lymphadenopathy - Respiratory Respiratory: bilateral: diminished - Cardiovascular Rhythm: regular Heart sounds: normal: S1, S2 Abnormal Heart Sounds: no S3 Gallop - Gastrointestinal General gastrointestinal: soft, no tenderness - Integumentary Integumentary: cellulitis - Musculoskeletal Musculoskeletal: gait normal Results CBC & Chem 7: 09/22/18 15:42 09/22/18 15:42 Labs: Abnormal Lab Results - Last 24 Hours (Table) 09/22/18 09/22/18 09/22/18 Range/Units 15:42 15:42 17:40 Chloride 97 L (98-107) mmol/L Carbon Dioxide 40 H (22-30) mmol/L BUN 20 H (7-17) mg/dL Glucose 208 H (74-99) mg/dL POC Glucose (mg/dL) (75-99) mg/dL Troponin I 0.038 H* (0.000-0.034) ng/mL Urine Protein Trace H (Negative) 09/22/18 09/22/18 09/23/18 Range/Units 20:47 22:22 03:58 Chloride (98-107) mmol/L Carbon Dioxide (22-30) mmol/L BUN (7-17) mg/dL Glucose (74-99) mg/dL POC Glucose (mg/dL) 287 H (75-99) mg/dL Troponin I 0.036 H* 0.045 H* (0.000-0.034) ng/mL Urine Protein (Negative) Thrombosis Risk Factor Assmnt - Choose All That Apply Any of the Below Risk Factors Present?: Yes Each Factor Represents 1 point: Obesity (BMI >25), Swollen legs (current) Other Risk Factors: Yes Each Risk Factor Represents 3 Points: Age 75 years or older Thrombosis Risk Factor Assessment Total Risk Factor Score: 5 Thrombosis Risk Factor Assessment Level: High Risk Assessment and Plan (1) Acute CHF Current Visit: Yes Status: Acute Code(s): I50.9 - HEART FAILURE, UNSPECIFIED SNOMED Code(s): 80384572 (2) Dyspnea Current Visit: Yes Status: Acute Code(s): R06.00 - DYSPNEA, UNSPECIFIED SNOMED Code(s): 694098472 (3) Elevated troponin Current Visit: Yes Status: Acute Code(s): R74.8 - ABNORMAL LEVELS OF OTHER SERUM ENZYMES SNOMED Code(s): 249480813 Plan: Diuresis as ordered. Check CBC and CMP in a.m. Reconcile home medications. We will go ahead and consult cardiology for appropriate continued assistance. Prognosis is guarded secondary to advancing age and multiple comorbidities. Time with Patient: Greater than 30
[2018-09-23] MEDS: NITROGLYCERIN OINT 1 INCH/GM PACKET TOPICAL SCH ×3 (08:44→17:25)
[2018-09-23] MEDS: aMILoride-HCTZ 5-50 mg 1 EACH TAB PO SCH (08:44)
[2018-09-23] MEDS: LISINOPRIL 5 MG TAB PO SCH ×2 (08:44→22:32)
[2018-09-23] MEDS: METOPROLOL TARTRATE 50 MG TAB PO SCH (08:44)
[2018-09-23] MEDS: ATORVASTATIN 20 MG TAB PO SCH (08:44)
[2018-09-23] MEDS: CHOLECALCIFEROL 1,000 UNIT TAB PO SCH (08:44)
[2018-09-23] MEDS: MULTIVITAMINS, THERA 1 EACH TAB PO SCH (08:44)
[2018-09-23] MEDS: FUROSEMIDE 10 MG/ML 4 ML VIAL IV SCH ×2 (08:50→17:25)
[2018-09-23] MEDS ORDERED: amLODIPine 10 MG TAB PO SCH (09:00)
--- NOTE | 2018-09-23 09:11 | P.CRDCN ---
History of Present Illness Consult date: 09/23/18 Requesting physician: Axel Cotter Consult reason: congestive heart failure Chief complaint: Shortness of breath History of present illness: This is a pleasant 83-year-old female who follows regularly with Dr. Salazar in the office. Patient has a known history of diabetes, hypertension, hyperlipidemia, COPD, nicotine dependence, recent diagnosis of bronchogenic lung cancer she underwent a cardiac catheterization because of abnormal stress test in May 2016 which revealed calcified coronary arteries, mild triple- vessel coronary artery disease severely impaired left ventricular systolic function, and her medications were maximized for nonischemic cardiomyopathy. Patient presents to the hospital on this occasion with symptoms of progressively worsening shortness of breath over approximately one week duration. Patient states that she could not lay down in bed at all because she was unable to breathe. She has also noticed increased swelling in her bilateral lower extremities, right leg greater than the left leg. Her chest x-ray on presentation here showed cardiogenic interstitial phase pulmonary edema. EKG showed normal sinus rhythm with no acute changes. White blood cell count 5.6, hemoglobin 12.1, platelet count 2:15. Sodium 141, potassium 4.4, BUN 20 and creatinine 0.8. Troponin 0.038, 0.036, 0.045. BNP level 6200. At the time of my examination this morning, the patient is sitting up at bedside, continues to feel short of breath however mildly improved. She continues to have bilateral lower extremity edema, greater in the right leg than the left leg. Past Medical History Past Medical History: Asthma, Cancer, COPD, Diabetes Mellitus, Hyperlipidemia, Hypertension, Osteoarthritis (OA) Additional Past Medical History / Comment(s): LUNG CANCER-LEFT LUNG, PAIN IN FEET , MACULAR DEGENERATION, EDEMA IN LEG, kidney disease History of Any Multi-Drug Resistant Organisms: None Reported Past Surgical History: Appendectomy, Hernia Repair, Joint Replacement Additional Past Surgical History / Comment(s): UMBILICAL HERNIA, LEFT KNEE REPLACEMENT Past Anesthesia/Blood Transfusion Reactions: No Reported Reaction Past Psychological History: Anxiety Smoking Status: Former smoker Past Alcohol Use History: None Reported Additional Past Alcohol Use History / Comment(s): STARTED SMOKING AT AGE 14 SMOKES 5-7 CIG ("MACHINE") PER DAY NOW PRIOR UP TO 2 PACKS Past Drug Use History: None Reported - Past Family History Mother Family Medical History: No Reported History Additional Family Medical History / Comment(s): NO KNOWN HISTORY- ADOPTED Medications and Allergies Home Medications Medication Instructions Recorded Confirmed Type Aspirin 81 mg PO DAILY 12/23/13 09/22/18 History Atorvastatin [Lipitor] 20 mg PO DAILY 12/23/13 09/22/18 History INSULIN ASPART (NovoLOG) [NovoLOG See Protocol INJ ACHS 12/23/13 09/22/18 History (formulary)] Insulin Glargine [Lantus] 17 units SQ HS 12/23/13 09/22/18 History Multivitamins, Thera [Multivitamin 1 tab PO DAILY 12/23/13 09/22/18 History (formulary)] aMILoride-HCTZ 5-50 mg [Moduretic 1 tab PO DAILY 12/23/13 09/22/18 History 5-50] Lisinopril [Zestril] 5 mg PO BID #180 tablet 05/16/16 09/22/18 Rx Calcitriol 0.5 mcg PO TUTH 09/01/18 09/22/18 History Cholecalciferol [Vitamin D3 (25 1,000 unit PO DAILY 09/01/18 09/22/18 History Mcg = 1000 Iu)] Metoprolol Tartrate [Lopressor] 50 mg PO BID 09/01/18 09/22/18 History amLODIPine [Norvasc] 10 mg PO DAILY #15 tablet 09/01/18 09/22/18 Rx Allergies Allergy/AdvReac Type Severity Reaction Status Date / Time No Known Allergies Allergy Verified 09/22/18 17:54 Physical Exam Vitals: Vital Signs Temp Pulse Pulse Resp BP BP Pulse Ox 09/23/18 07:36 97.5 F L 68 20 130/60 96 09/23/18 03:21 97.8 F 65 20 124/97 94 L 09/22/18 23:20 68 18 144/84 96 09/22/18 20:00 97.8 F 97 18 132/62 93 L 09/22/18 18:55 98 F 18 152/67 98 09/22/18 17:43 83 L 09/22/18 17:41 60 17 135/61 95 09/22/18 16:23 74 09/22/18 16:07 68 09/22/18 15:56 97.9 F 76 17 148/71 94 L Intake and Output 09/22/18 09/23/18 09/23/18 22:59 06:59 14:59 Intake Total 1000 400 Output Total 096 811 2398 Balance 500 50 -1000 Intake: Amount of Fluid Infused ( 1000 ml) Oral 400 Output: Urine 122 115 0176 Other: Voiding Method Bedside Commode # Voids 1 Weight 74.843 kg 78.7 kg PHYSICAL EXAMINATION: GENERAL: 83-year-old female in no acute distress at the time of my examination HEENT: Head is atraumatic, normocephalic. Pupils equal, round. Sclera anicteric. Conjunctiva are clear. Mucous membranes of the mouth are moist. Neck is supple. There is elevated jugular venous pressure. No carotid bruit is heard. HEART EXAMINATION: Heart S1 and S2 systolic ejection murmur is heard CHEST EXAMINATION: Lungs reveal diminished air entry to bilateral bases with some fine wheezing heard ABDOMEN: Soft, nontender. Bowel sounds are heard. No organomegaly noted. EXTREMITIES:[ 2+ peripheral pulses with trace edema to the left lower extremity, 1-2+ edema in the right lower extremity, evidence of bilateral ear erythema . NEUROLOGIC patient is awake, alert and oriented 3 . . Results 09/22/18 15:42 09/22/18 15:42 Cardiac Enzymes 09/22/18 09/22/18 09/22/18 Range/Units 15:42 15:42 22:22 AST 30 (14-36) U/L Troponin I 0.038 H* 0.036 H* (0.000-0.034) ng/mL 09/23/18 Range/Units 03:58 AST (14-36) U/L Troponin I 0.045 H* (0.000-0.034) ng/mL Coagulation 09/22/18 Range/Units 15:42 PT 11.4 (9.0-12.0) sec APTT 25.4 (22.0-30.0) sec CBC 09/22/18 Range/Units 15:42 WBC 5.6 (3.8-10.6) k/uL RBC 3.89 (3.80-5.40) m/uL Hgb 12.1 (11.4-16.0) gm/dL Hct 38.4 (34.0-46.0) % Plt Count 215 (150-450) k/uL Comprehensive Metabolic Panel 09/22/18 Range/Units 15:42 Sodium 141 (137-145) mmol/L Potassium 4.4 (3.5-5.1) mmol/L Chloride 97 L (98-107) mmol/L Carbon Dioxide 40 H (22-30) mmol/L BUN 20 H (7-17) mg/dL Creatinine 0.86 (0.52-1.04) mg/dL Glucose 208 H (74-99) mg/dL Calcium 9.0 (8.4-10.2) mg/dL AST 30 (14-36) U/L ALT 29 (9-52) U/L Alkaline Phosphatase 107 (38-126) U/L Total Protein 6.3 (6.3-8.2) g/dL Albumin 3.7 (3.5-5.0) g/dL Current Medications Generic Name Dose Route Start Last Admin Trade Name Freq PRN Reason Stop Dose Admin Amiloride/HCTZ 1 each 09/23/18 09:00 09/23/18 08:44 Moduretic 5-50 PO 1 each DAILY [facility] Administration Amlodipine Besylate 10 mg 09/23/18 09:00 09/23/18 08:44 Norvasc PO 10 mg DAILY [facility] Administration Aspirin 325 mg 09/23/18 17:17 Aspirin PO DAILY [facility] Atorvastatin Calcium 20 mg 09/23/18 09:00 09/23/18 08:44 Lipitor PO 20 mg DAILY [facility] Administration Calcitriol 0.5 mcg 09/22/18 20:15 09/22/18 20:31 Rocaltrol PO Not Given TuTh@0900 [facility] Cholecalciferol 1,000 unit 09/23/18 09:00 09/23/18 08:44 Vitamin D3 (25 Mcg = 1000 Iu) PO 1,000 unit DAILY [facility] Administration Furosemide 40 mg 09/23/18 00:00 09/23/18 08:50 Lasix IV 40 mg Q8HR [facility] Administration Insulin Aspart 0 unit 09/22/18 21:00 09/23/18 06:55 Novolog SQ Not Given [facility] Protocol Insulin Detemir 17 unit 09/22/18 21:00 09/22/18 21:59 Levemir SQ 17 unit HS [facility] Administration Lisinopril 5 mg 09/22/18 21:00 09/23/18 08:44 Zestril PO 5 mg BID [facility] Administration Metoprolol Tartrate 50 mg 09/22/18 21:00 09/23/18 08:44 Lopressor PO 50 mg BID [facility] Administration Multivitamins 1 each 09/23/18 09:00 09/23/18 08:44 Theragran PO 1 each DAILY [facility] Administration Nitroglycerin 1 inch 09/22/18 18:00 09/23/18 08:44 Nitro-Bid Oint TOPICAL 1 inch QID [facility] Administration Intake and Output 09/22/18 09/23/18 09/23/18 22:59 06:59 14:59 Intake Total 1000 400 Output Total 291 965 1090 Balance 500 50 -1000 Intake: Amount of Fluid Infused ( 1000 ml) Oral 400 Output: Urine 539 920 9413 Other: Voiding Method Bedside Commode # Voids 1 Weight 74.843 kg 78.7 kg 09/22/18 15:42 09/22/18 15:42 EKG Interpretations (text) EKG shows normal sinus rhythm with no acute changes. Assessment and Plan Plan: Assessment and plan #1 systolic congestive heart failure acute on chronic #2 nonischemic cardiomyopathy, cardiac catheterization was performed in 2017 and revealed mild triple-vessel coronary artery disease #3 hypertension #4 COPD #5 bronchogenic lung cancer #6 diabetes #7 hyperlipidemia #8 nicotine dependence #9 abnormal troponin, not significant with coronary syndrome, with no significant rise and fall pattern. Abnormality likely significant to congestive heart failure exacerbation and cardiomyopathy. Prior troponin similar abnormal range. Plan We will obtain a repeat echocardiogram with Doppler study. Decrease aspirin to 81 mg daily, continue IV Lasix along with lisinopril, metoprolol, Lipitor, we will add Aldactone to the patient's medication regime, consider discontinuing the metoprolol and initiating Coreg for more optimal blood pressure control. We will also discontinue the Norvasc. Further recommendations to follow. DNP note has been reviewed, I agree with a documented findings and plan of care. Patient was seen and examined.
[2018-09-23] MEDS: CARVEDILOL 12.5 MG TAB PO SCH ×2 (09:23→17:25)
[2018-09-23 11:54] LABS: Hemoglobin A1C 8.4 % (4.0-6.0)
[2018-09-23 11:57] LABS: Glucose,Whole Blood 324 mg/dL (75-99)
--- NOTE | 2018-09-23 12:58 | ECHOF ---
Referral Reason:chf MEASUREMENTS -------- HEIGHT: 157.5 cm WEIGHT: 78.5 kg BP: 130/60 RVIDd: 3.3 cm (< 3.3) IVSd: 1.4 cm (0.6 - 1.1) LVIDd: 4.7 cm (3.9 - 5.3) LVPWd: 1.2 cm (0.6 - 1.1) IVSs: 1.7 cm LVIDs: 3.4 cm LVPWs: 1.7 cm LA Diam: 3.2 cm (2.7 - 3.8) LAESV Index (A-L): 27.90 ml/m Ao Diam: 3.5 cm (2.0 - 3.7) AV Cusp: 1.4 cm (1.5 - 2.6) MV EXCURSION: 14.317 mm (> 18.000) MV EF SLOPE: 19 mm/s (70 - 150) EPSS: 1.3 cm MV E Giuseppe: 0.53 m/s MV DecT: 476 ms MV A Giuseppe: 1.15 m/s MV E/A Ratio: 0.46 FINDINGS -------- Sinus rhythm. This was a technically adequate study. The left ventricular size is normal. There is moderate concentric left ventricular hypertrophy. O verall left ventricular systolic function is low-normal with, an EF between 50 - 55 %. The right ventricle is mildly enlarged. Normal LA size by volume 22+/-6 ml/m2. The right atrium is normal in size. Interatrial and interventricular septum intact. Aortic valve is trileaflet and is mildly thickened. The mitral valve leaflets are mildly thickened. Mild mitral annular calcification present. The tricuspid valve appears structurally normal. The pulmonic valve was not well visualized. The aortic root size is normal. Normal inferior vena cava with normal inspiratory collapse consistent with estimated right atrial pre ssure of 5 mmHg. There is no pericardial effusion. CONCLUSIONS -------- 1. Sinus rhythm. 2. This was a technically adequate study. 3. The left ventricular size is normal. 4. There is moderate concentric left ventricular hypertrophy. 5. Overall left ventricular systolic function is low-normal with, an EF between 50 - 55 %. 6. The right ventricle is mildly enlarged. 7. Normal LA size by volume 22+/-6 ml/m2. 8. The right atrium is normal in size. 9. Interatrial and interventricular septum intact. 10. Aortic valve is trileaflet and is mildly thickened. 11. The mitral valve leaflets are mildly thickened. 12. Mild mitral annular calcification present. 13. The tricuspid valve appears structurally normal. 14. The pulmonic valve was not well visualized. 15. The aortic root size is normal. 16. Normal inferior vena cava with normal inspiratory collapse consistent with estimated right atrial pressure of 5 mmHg. 17. There is no pericardial effusion. LAST REMODELER REPAIRER: Nicole Alston RDCS
--- NOTE | 2018-09-23 13:17 | US ---
EXAMINATION TYPE: US venous doppler duplex LE RT DATE OF EXAM: 09/23/2018 12:50 PM COMPARISON: NONE CLINICAL HISTORY: r/o dvt. Right leg pain and swelling SIDE PERFORMED: Right TECHNIQUE: The lower extremity deep venous system is examined utilizing real time linear array sonog giovanni with graded compression, doppler sonography and color-flow sonography. VESSELS IMAGED: External Iliac Vein (EIV) Common Femoral Vein Deep Femoral Vein Greater Saphenous Vein * Femoral Vein Popliteal Vein Small Saphenous Vein * Proximal Calf Veins (* superficial vessels) Grayscale, color doppler, spectral doppler imaging performed of the deep veins of the right lower ext remity. There is normal flow, compressibility, vascular waveforms. Right Leg: Appears negative for DVT IMPRESSION: No sonographic evidence of deep venous thrombosis within the right lower extremity.
[2018-09-23 16:44] LABS: Glucose,Whole Blood 74 mg/dL (75-99)
[2018-09-23] MEDS ORDERED: ASPIRIN 325 MG TAB PO SCH (17:17)
[2018-09-23 21:08] LABS: Glucose,Whole Blood 213 mg/dL (75-99)
[2018-09-23] MEDS: INSULIN DETEMIR (LEVEMIR) 100 UNIT/ML SYR SQ SCH (22:32)
[2018-09-24] MEDS: NITROGLYCERIN OINT 1 INCH/GM PACKET TOPICAL SCH (00:52)
[2018-09-24] MEDS: FUROSEMIDE 10 MG/ML 4 ML VIAL IV SCH ×3 (00:52→17:41)
[2018-09-24 06:36] LABS: Glucose,Whole Blood 103 mg/dL (75-99)
[2018-09-24] MEDS: INSULIN ASPART (NovoLOG) 100 UNIT/ML VIAL SQ SCH ×4 (07:11→21:00)
--- NOTE | 2018-09-24 08:01 | P.PN ---
Subjective Principal diagnosis: Worsening heart failure The patient seems overly suspicious about her macular degeneration. She feels that staff is laughing at her. I reassured her that we are not in the practice of laughing and patient's. Otherwise she seems to be breathing easily and hold conversation appropriately. No stated voiding difficulties. Objective - Vital Signs Vital signs: Vital Signs Temp 98.1 F 09/24/18 04:00 Pulse 64 09/24/18 04:00 Resp 16 09/24/18 04:00 BP 115/56 09/24/18 04:00 Pulse Ox 96 09/24/18 04:00 Intake & Output 09/23/18 09/24/18 09/24/18 18:59 06:59 18:59 Intake Total 620 Output Total 1900 400 Balance -1280 -400 Weight 78.7 kg 79 kg Intake: Intake, IV Titration 140 Amount Sodium Chloride 0.9% 1, 140 000 ml @ 100 mls/hr IV . Q10H ST[facility] Rx#:[id number] Oral 480 Output: Urine 1900 400 Other: Voiding Method Bedside Commode # Voids 1 1 # Bowel Movements 1 - Constitutional General appearance: Present: average body habitus - EENT Eyes: Absent: abnormal pupil - Neck Neck: Absent: lymphadenopathy - Respiratory Respiratory: bilateral: diminished - Cardiovascular Heart sounds: normal: S1, S2 Abnormal Heart Sounds: Absent: S3 Gallop - Gastrointestinal General gastrointestinal: Present: soft. Absent: splenomegaly, tenderness - Integumentary Integumentary: Absent: cellulitis - Neurologic Neurologic: Present: CNII-XII intact. Absent: focal deficits - Labs CBC & Chem 7: 09/22/18 15:42 09/22/18 15:42 Labs: Abnormal Lab Results - Last 24 Hours (Table) 09/23/18 09/23/18 09/23/18 Range/Units 03:58 11:56 16:40 POC Glucose (mg/dL) 324 H 74 L (75-99) mg/dL Hemoglobin A1c 8.4 H (4.0-6.0) % 09/23/18 09/24/18 Range/Units 21:07 06:35 POC Glucose (mg/dL) 213 H 103 H (75-99) mg/dL Hemoglobin A1c (4.0-6.0) % Microbiology - Last 24 Hours (Table) 09/22/18 16:02 Blood Culture - Preliminary Blood No Growth after 24 hours Assessment and Plan (1) Acute CHF Current Visit: Yes Status: Acute Code(s): I50.9 - HEART FAILURE, UNSPECIFIED SNOMED Code(s): 13727616 (2) Dyspnea Current Visit: Yes Status: Acute Code(s): R06.00 - DYSPNEA, UNSPECIFIED SNOMED Code(s): 569664989 (3) Elevated troponin Current Visit: Yes Status: Acute Code(s): R74.8 - ABNORMAL LEVELS OF OTHER SERUM ENZYMES SNOMED Code(s): 027392266 Plan: Continue current regimen of IV Lasix for today. Check CMP in a.m. The patient is seemingly clinically improved. If true delirium does surface, question need for neurology/psychiatry. Time with Patient: Less than 30
[2018-09-24 09:13] LABS: Calcium 9.3 mg/dL (8.4-10.2); Potassium 3.8 mmol/L (3.5-5.1)
[2018-09-24] MEDS: CARVEDILOL 12.5 MG TAB PO SCH ×2 (10:37→17:41)
[2018-09-24] MEDS: CALCITRIOL 0.25 MCG CAP PO SCH (10:38)
[2018-09-24] MEDS: LISINOPRIL 5 MG TAB PO SCH ×2 (10:38→22:34)
[2018-09-24] MEDS: MULTIVITAMINS, THERA 1 EACH TAB PO SCH (10:39)
[2018-09-24] MEDS: SPIRONOLACTONE 25 MG TAB PO SCH (10:39)
[2018-09-24] MEDS: ATORVASTATIN 20 MG TAB PO SCH (10:39)
[2018-09-24] MEDS: CHOLECALCIFEROL 1,000 UNIT TAB PO SCH (10:39)
[2018-09-24] MEDS: ASPIRIN 81 MG PO SCH (10:39)
[2018-09-24] MEDS: aMILoride-HCTZ 5-50 mg 1 EACH TAB PO SCH (10:42)
[2018-09-24 11:57] LABS: Glucose,Whole Blood 123 mg/dL (75-99)
--- NOTE | 2018-09-24 12:16 | P.PN ---
Subjective Progress Note Date: 09/24/18 This is a pleasant 83-year-old female who follows regularly with Dr. Salazar in the office. Patient has a known history of diabetes, hypertension, hyperlipidemia, COPD, nicotine dependence, recent diagnosis of bronchogenic lung cancer she underwent a cardiac catheterization because of abnormal stress test in May 2016 which revealed calcified coronary arteries, mild triple- vessel coronary artery disease severely impaired left ventricular systolic function, and her medications were maximized for nonischemic cardiomyopathy. Patient presents to the hospital on this occasion with symptoms of progressively worsening shortness of breath over approximately one week duration. Patient states that she could not lay down in bed at all because she was unable to breathe. She has also noticed increased swelling in her bilateral lower extremities, right leg greater than the left leg. Her chest x-ray on presentation here showed cardiogenic interstitial phase pulmonary edema. EKG showed normal sinus rhythm with no acute changes. White blood cell count 5.6, hemoglobin 12.1, platelet count 2:15. Sodium 141, potassium 4.4, BUN 20 and creatinine 0.8. Troponin 0.038, 0.036, 0.045. BNP level 6200. At the time of my examination this morning, the patient is sitting up at bedside, continues to feel short of breath however mildly improved. She continues to have bilateral lower extremity edema, greater in the right leg than the left leg. 09/24/2018 Patient seen and examined this morning, she does state that her breathing is somewhat improved from admission but still complains of feeling short of breath. She also states that she's been up urinating quite a bit through the night last night. Blood pressure 116/50 with a heart rate in the 60s, 96% on 2 L of oxygen. Sodium 141, potassium 3.8, BUN 25 and creatinine 1.2. Objective - Vital Signs Vital signs: Vital Signs Temp 98.1 F 09/24/18 04:00 Pulse 64 09/24/18 04:00 Resp 16 09/24/18 04:00 BP 115/56 09/24/18 04:00 Pulse Ox 96 09/24/18 04:00 Intake & Output 09/23/18 09/24/18 09/24/18 18:59 06:59 18:59 Intake Total 620 240 Output Total 1900 400 Balance -1280 -400 240 Weight 78.7 kg 79 kg Intake: Intake, IV Titration 140 Amount Sodium Chloride 0.9% 1, 140 000 ml @ 100 mls/hr IV . Q10H [facility] Rx#:[id number] Oral 480 240 Output: Urine 1900 400 Other: Voiding Method Bedside Commode # Voids 1 1 # Bowel Movements 1 - Exam PHYSICAL EXAMINATION: GENERAL: 83-year-old female in no acute distress at the time of my examination HEENT: Head is atraumatic, normocephalic. Pupils equal, round. Sclera anicteric. Conjunctiva are clear. Mucous membranes of the mouth are moist. Neck is supple. There is elevated jugular venous pressure. No carotid bruit is heard. HEART EXAMINATION: Heart S1 and S2 systolic ejection murmur is heard CHEST EXAMINATION: Lungs reveal diminished air entry to bilateral bases with some fine wheezing heard ABDOMEN: Soft, nontender. Bowel sounds are heard. No organomegaly noted. EXTREMITIES:[ 2+ peripheral pulses with trace edema to the left lower extremity, 1-2+ edema in the right lower extremity, evidence of bilateral ear erythema . NEUROLOGIC patient is awake, alert and oriented 3 . - Labs CBC & Chem 7: 09/22/18 15:42 09/24/18 08:44 Labs: Abnormal Lab Results - Last 24 Hours (Table) 09/23/18 09/23/18 09/24/18 Range/Units 16:40 21:07 06:35 Chloride (98-107) mmol/L Carbon Dioxide (22-30) mmol/L BUN (7-17) mg/dL Creatinine (0.52-1.04) mg/dL Glucose (74-99) mg/dL POC Glucose (mg/dL) 74 L 213 H 103 H (75-99) mg/dL 09/24/18 09/24/18 Range/Units 08:44 11:55 Chloride 89 L (98-107) mmol/L Carbon Dioxide 48 H* (22-30) mmol/L BUN 25 H (7-17) mg/dL Creatinine 1.22 H (0.52-1.04) mg/dL Glucose 146 H (74-99) mg/dL POC Glucose (mg/dL) 123 H (75-99) mg/dL Microbiology - Last 24 Hours (Table) 09/22/18 16:02 Blood Culture - Preliminary Blood No Growth after 24 hours Assessment and Plan Plan: Assessment and plan #1 systolic congestive heart failure acute on chronic #2 nonischemic cardiomyopathy, cardiac catheterization was performed in 2017 and revealed mild triple-vessel coronary artery disease #3 hypertension #4 COPD #5 bronchogenic lung cancer #6 diabetes #7 hyperlipidemia #8 nicotine dependence #9 abnormal troponin, not significant with coronary syndrome, with no significant rise and fall pattern. Abnormality likely significant to congestive heart failure exacerbation and cardiomyopathy. Prior troponin similar abnormal range. Plan Echocardiogram with Doppler study was performed which revealed an ejection fraction of 50-55%. From cardiology standpoint we would recommend to continue current dose of IV Lasix, continue to monitor intake and output along with daily weights and daily lytes BUN and creatinine. DNP note has been reviewed, I agree with a documented findings and plan of care. Patient was seen and examined.
[2018-09-24 16:47] LABS: Glucose,Whole Blood 211 mg/dL (75-99)
[2018-09-24 21:36] LABS: Glucose,Whole Blood 121 mg/dL (75-99)
[2018-09-24] MEDS: INSULIN DETEMIR (LEVEMIR) 100 UNIT/ML SYR SQ SCH (21:47)
[2018-09-25] MEDS: FUROSEMIDE 10 MG/ML 4 ML VIAL IV SCH ×2 (01:18→08:44)
[2018-09-25 06:48] LABS: Potassium 3.3 mmol/L (3.5-5.1)
[2018-09-25 06:54] LABS: Glucose,Whole Blood 96 mg/dL (75-99)
[2018-09-25] MEDS: INSULIN ASPART (NovoLOG) 100 UNIT/ML VIAL SQ SCH ×4 (08:15→21:08)
--- NOTE | 2018-09-25 08:18 | P.DS ---
Providers Date of admission: 09/22/18 17:34 Attending physician: Axel Cotter Consults: 09/22/18 17:16 Consult Physician Stat Consulting Provider: Aide Salazar Consult Reason/Comments: CHF, elevated trop Do you want consulting provider notified?: Yes Primary care physician: Axel Cotter - Discharge Diagnosis(es) (1) Acute CHF Current Visit: Yes Status: Acute (2) Dyspnea Current Visit: Yes Status: Acute (3) Elevated troponin Current Visit: Yes Status: Acute Hospital Course: This is a discharge summary 83-year-old white female essentially admitted for anasarca cardiopathy myopathy. The patient was stabilized with IV Lasix. Appreciate cardiology input. Once cleared by consultants, we will discharged in stable condition to follow-up with me in about 5-7 days. Patient Condition at Discharge: Stable Plan - Discharge Summary New Discharge Prescriptions: New Spironolactone [Aldactone] 25 mg PO DAILY #30 tab Furosemide [Lasix] 40 mg PO TID #90 tablet Continue aMILoride-HCTZ 5-50 mg [Moduretic 5-50] 1 tab PO DAILY Multivitamins, Thera [Multivitamin (formulary)] 1 tab PO DAILY Insulin Glargine [Lantus] 17 units SQ HS INSULIN ASPART (NovoLOG) [NovoLOG (formulary)] See Protocol INJ ACHS Atorvastatin [Lipitor] 20 mg PO DAILY Aspirin 81 mg PO DAILY Lisinopril [Zestril] 5 mg PO BID #180 tablet Calcitriol 0.5 mcg PO TUTH Cholecalciferol [Vitamin D3 (25 Mcg = 1000 Iu)] 1,000 unit PO DAILY Metoprolol Tartrate [Lopressor] 50 mg PO BID amLODIPine [Norvasc] 10 mg PO DAILY #15 tablet Discharge Medication List Aspirin 81 mg PO DAILY 12/23/13 [History] Atorvastatin [Lipitor] 20 mg PO DAILY 12/23/13 [History] INSULIN ASPART (NovoLOG) [NovoLOG (formulary)] See Protocol INJ ACHS 12/23/13 [History] Insulin Glargine [Lantus] 17 units SQ HS 12/23/13 [History] Multivitamins, Thera [Multivitamin (formulary)] 1 tab PO DAILY 12/23/13 [History] aMILoride-HCTZ 5-50 mg [Moduretic 5-50] 1 tab PO DAILY 12/23/13 [History] Lisinopril [Zestril] 5 mg PO BID #180 tablet 05/16/16 [Rx] Calcitriol 0.5 mcg PO TUTH 09/01/18 [History] Cholecalciferol [Vitamin D3 (25 Mcg = 1000 Iu)] 1,000 unit PO DAILY 09/01/18 [History] Metoprolol Tartrate [Lopressor] 50 mg PO BID 09/01/18 [History] amLODIPine [Norvasc] 10 mg PO DAILY #15 tablet 09/01/18 [Rx] Furosemide [Lasix] 40 mg PO TID #90 tablet 09/25/18 [Rx] Spironolactone [Aldactone] 25 mg PO DAILY #30 tab 09/25/18 [Rx] Follow up Appointment(s)/Referral(s): Axel Cotter MD [Primary Care Provider] - 1-2 days
[2018-09-25] MEDS: CARVEDILOL 12.5 MG TAB PO SCH ×2 (08:21→17:16)
[2018-09-25] MEDS ORDERED: Potassium Replacement Protocol 1 EACH MISC MISCELLANE PRN (08:40)
[2018-09-25] MEDS: ASPIRIN 81 MG PO SCH (08:41)
[2018-09-25] MEDS: MULTIVITAMINS, THERA 1 EACH TAB PO SCH (08:41)
[2018-09-25] MEDS: CHOLECALCIFEROL 1,000 UNIT TAB PO SCH (08:41)
[2018-09-25] MEDS: SPIRONOLACTONE 25 MG TAB PO SCH (08:41)
[2018-09-25] MEDS: LISINOPRIL 5 MG TAB PO SCH ×2 (08:42→21:08)
[2018-09-25] MEDS: aMILoride-HCTZ 5-50 mg 1 EACH TAB PO SCH (08:42)
[2018-09-25] MEDS: ATORVASTATIN 20 MG TAB PO SCH (08:42)
[2018-09-25] MEDS: POTASSIUM CHLORIDE ER 20 MEQ TAB.ER PO SCH ×2 (08:44→12:19)
--- NOTE | 2018-09-25 11:28 | P.PN ---
Subjective Progress Note Date: 09/25/18 This is a pleasant 83-year-old female who follows regularly with Dr. Salazar in the office. Patient has a known history of diabetes, hypertension, hyperlipidemia, COPD, nicotine dependence, recent diagnosis of bronchogenic lung cancer she underwent a cardiac catheterization because of abnormal stress test in May 2016 which revealed calcified coronary arteries, mild triple- vessel coronary artery disease severely impaired left ventricular systolic function, and her medications were maximized for nonischemic cardiomyopathy. Patient presents to the hospital on this occasion with symptoms of progressively worsening shortness of breath over approximately one week duration. Patient states that she could not lay down in bed at all because she was unable to breathe. She has also noticed increased swelling in her bilateral lower extremities, right leg greater than the left leg. Her chest x-ray on presentation here showed cardiogenic interstitial phase pulmonary edema. EKG showed normal sinus rhythm with no acute changes. White blood cell count 5.6, hemoglobin 12.1, platelet count 2:15. Sodium 141, potassium 4.4, BUN 20 and creatinine 0.8. Troponin 0.038, 0.036, 0.045. BNP level 6200. At the time of my examination this morning, the patient is sitting up at bedside, continues to feel short of breath however mildly improved. She continues to have bilateral lower extremity edema, greater in the right leg than the left leg. 09/24/2018 Patient seen and examined this morning, she does state that her breathing is somewhat improved from admission but still complains of feeling short of breath. She also states that she's been up urinating quite a bit through the night last night. Blood pressure 116/50 with a heart rate in the 60s, 96% on 2 L of oxygen. Sodium 141, potassium 3.8, BUN 25 and creatinine 1.2. 09/25/2018 Patient was seen and examined this morning, her weight is down 3 kg today, creatinine up to 1.7 from 1.2. Blood pressure 118/60 with a heart rate of 80, 92% on 4 L of oxygen. Sodium 140, potassium 3.3, BUN 31 and creatinine 1.7 Objective - Vital Signs Vital signs: Vital Signs Temp 97.7 F 09/25/18 08:00 Pulse 80 09/25/18 08:00 Resp 20 09/25/18 08:00 BP 118/59 09/25/18 08:00 Pulse Ox 92 L 09/25/18 08:00 Intake & Output 09/24/18 09/25/18 09/25/18 18:59 06:59 18:59 Intake Total 720 240 Output Total 1000 650 Balance -280 -650 240 Weight 76 kg Intake: Oral 720 240 Output: Urine 1000 650 Other: Voiding Method Bedside Commode # Voids 1 - Exam PHYSICAL EXAMINATION: GENERAL: 83-year-old female in no acute distress at the time of my examination HEENT: Head is atraumatic, normocephalic. Pupils equal, round. Sclera anicteric. Conjunctiva are clear. Mucous membranes of the mouth are moist. Neck is supple. There is elevated jugular venous pressure. No carotid bruit is heard. HEART EXAMINATION: Heart S1 and S2 systolic ejection murmur is heard CHEST EXAMINATION: Lungs clear to auscultation ABDOMEN: Soft, nontender. Bowel sounds are heard. No organomegaly noted. EXTREMITIES:[ 2+ peripheral pulses with trace edema to the left lower extremity, trace edema in the right lower extremity, evidence of bilateral ear erythema . NEUROLOGIC patient is awake, alert and oriented 3 . - Labs CBC & Chem 7: 09/22/18 15:42 09/25/18 05:46 Labs: Abnormal Lab Results - Last 24 Hours (Table) 09/24/18 09/24/18 09/24/18 Range/Units 11:55 16:45 21:34 Potassium (3.5-5.1) mmol/L Chloride (98-107) mmol/L Carbon Dioxide (22-30) mmol/L BUN (7-17) mg/dL Creatinine (0.52-1.04) mg/dL Glucose (74-99) mg/dL POC Glucose (mg/dL) 123 H 211 H 121 H (75-99) mg/dL 09/25/18 Range/Units 05:46 Potassium 3.3 L (3.5-5.1) mmol/L Chloride 85 L (98-107) mmol/L Carbon Dioxide 45 H* (22-30) mmol/L BUN 31 H (7-17) mg/dL Creatinine 1.72 H (0.52-1.04) mg/dL Glucose 101 H (74-99) mg/dL POC Glucose (mg/dL) (75-99) mg/dL Microbiology - Last 24 Hours (Table) 09/22/18 16:02 Blood Culture - Preliminary Blood No Growth after 48 hours Assessment and Plan Plan: Assessment and plan #1 systolic congestive heart failure acute on chronic #2 nonischemic cardiomyopathy, cardiac catheterization was performed in 2017 and revealed mild triple-vessel coronary artery disease #3 hypertension #4 COPD #5 bronchogenic lung cancer #6 diabetes #7 hyperlipidemia #8 nicotine dependence #9 abnormal troponin, not significant with coronary syndrome, with no significant rise and fall pattern. Abnormality likely significant to congestive heart failure exacerbation and cardiomyopathy. Prior troponin similar abnormal range. Plan From cardiology's perspective, we'll replace the patient's potassium, discontinue IV Lasix, start the patient on Lasix 60 mg one tablet by mouth twice a day. Check lytes BUN and creatinine in the morning. DNP note has been reviewed, I agree with a documented findings and plan of care. Patient was seen and examined.
[2018-09-25 11:59] LABS: Glucose,Whole Blood 148 mg/dL (75-99)
[2018-09-25 17:03] LABS: Glucose,Whole Blood 155 mg/dL (75-99)
[2018-09-25] MEDS: FUROSEMIDE 20 MG TAB PO SCH (17:16)
[2018-09-25 20:55] LABS: Glucose,Whole Blood 153 mg/dL (75-99)
[2018-09-25] MEDS: INSULIN DETEMIR (LEVEMIR) 100 UNIT/ML SYR SQ SCH (21:08)
[2018-09-26 06:25] LABS: Glucose,Whole Blood 165 mg/dL (75-99)
[2018-09-26] MEDS: INSULIN ASPART (NovoLOG) 100 UNIT/ML VIAL SQ SCH ×4 (06:38→20:39)
[2018-09-26] MEDS: CARVEDILOL 12.5 MG TAB PO SCH ×2 (06:38→18:06)
[2018-09-26] MEDS: MULTIVITAMINS, THERA 1 EACH TAB PO SCH (09:16)
[2018-09-26] MEDS: SPIRONOLACTONE 25 MG TAB PO SCH (09:17)
[2018-09-26] MEDS: aMILoride-HCTZ 5-50 mg 1 EACH TAB PO SCH (09:17)
[2018-09-26] MEDS: ASPIRIN 81 MG PO SCH (09:17)
[2018-09-26] MEDS: ATORVASTATIN 20 MG TAB PO SCH (09:17)
[2018-09-26] MEDS: CHOLECALCIFEROL 1,000 UNIT TAB PO SCH (09:17)
[2018-09-26] MEDS: FUROSEMIDE 20 MG TAB PO SCH (09:17)
[2018-09-26] MEDS: LISINOPRIL 5 MG TAB PO SCH (09:17)
[2018-09-26 11:50] LABS: Calcium 8.8 mg/dL (8.4-10.2); Potassium 4.6 mmol/L (3.5-5.1)
[2018-09-26 11:58] LABS: Glucose,Whole Blood 151 mg/dL (75-99)
--- NOTE | 2018-09-26 12:36 | P.PN ---
Subjective 83-year-old female has history of COPD also uses 2 L of oxygen at home is admitted for heart failure exacerbation appears to have some diastolic dysf unction. Patient went into renal failure secondary to excessive diuretic therapy and hypotension diuretics DONNA inhibitor will be discontinued. Patient's present creatinine is 1.72 on admission it was 0.86. I'll monitor her 1 more day patient is still hypotensive earlier today, we'll repeat kidney function tomorrow with improvement in kidney function patient can be discharged at that. Patient's ejection fraction is normal may not require lisinopril Objective - Vital Signs Vital signs: Vital Signs Temp 98.0 F 09/26/18 08:00 Pulse 64 09/26/18 11:58 Resp 18 09/26/18 11:58 BP 96/50 09/26/18 08:00 Pulse Ox 95 09/26/18 08:00 Intake & Output 09/25/18 09/26/18 09/26/18 18:59 06:59 18:59 Intake Total 420 180 Output Total 750 Balance -330 180 Weight 75.3 kg Intake: Oral 420 180 Output: Urine 750 Other: Voiding Method Bedside Commode Bedside Commode # Voids 1 - Exam PHYSICAL EXAMINATION: GENERAL: The patient is alert and oriented x3, not in any acute distress. Well developed, well nourished. HEENT: Pupils are round and equally reacting to light. EOMI. No scleral icterus. No conjunctival pallor. Normocephalic, atraumatic. No pharyngeal erythema. No thyromegaly. CARDIOVASCULAR: S1 and S2 present. No murmurs, rubs, or gallops. PULMONARY: Chest is clear to auscultation, no wheezing or crackles. ABDOMEN: Soft, nontender, nondistended, normoactive bowel sounds. No palpable organomegaly. MUSCULOSKELETAL: No joint swelling or deformity. EXTREMITIES: No cyanosis, clubbing, or pedal edema. NEUROLOGICAL: Gross neurological examination did not reveal any focal deficits. SKIN: No rashes. - Labs CBC & Chem 7: 09/22/18 15:42 09/25/18 05:46 Labs: Abnormal Lab Results - Last 24 Hours (Table) 09/25/18 09/25/18 09/26/18 Range/Units 16:42 20:53 06:23 POC Glucose (mg/dL) 155 H 153 H 165 H (75-99) mg/dL 09/26/18 Range/Units 11:50 POC Glucose (mg/dL) 151 H (75-99) mg/dL Microbiology - Last 24 Hours (Table) 09/22/18 16:02 Blood Culture - Preliminary Blood No Growth after 72 hours Assessment and Plan Plan: -Shortness of breath possibly of acute heart failure exacerbation probably chronic diastolic dysfunction with acute exacerbation presently hypovolemic management as mentioned above -Acute renal failure secondary to hypertension and excessive diuretic therapy further management as mentioned in the interval history repeat basic metabolic profile tomorrow hypertension patient is presently hypotensive --COPD without any acute exacerbation does have chronic hypercapnic respiratory failure uses 2 L of oxygen which will be continued -Type 2 diabetes mellitus -Hyperlipidemia -Elevated troponin secondary to heart failure exacerbation
[2018-09-26 16:56] LABS: Glucose,Whole Blood 219 mg/dL (75-99)
[2018-09-26 20:14] LABS: Glucose,Whole Blood 167 mg/dL (75-99)
[2018-09-26] MEDS: INSULIN DETEMIR (LEVEMIR) 100 UNIT/ML SYR SQ SCH (20:39)
[2018-09-27] MEDS ORDERED: ALPRAZolam 0.25 MG TAB PO STA (00:46)
[2018-09-27 06:12] LABS: Glucose,Whole Blood 139 mg/dL (75-99)
[2018-09-27] MEDS: CARVEDILOL 12.5 MG TAB PO SCH ×2 (06:28→18:17)
[2018-09-27] MEDS: INSULIN ASPART (NovoLOG) 100 UNIT/ML VIAL SQ SCH ×4 (06:29→21:28)
[2018-09-27 07:12] LABS: Calcium 8.8 mg/dL (8.4-10.2); Potassium 4.3 mmol/L (3.5-5.1)
[2018-09-27] MEDS ORDERED: LISINOPRIL 5 MG TAB PO SCH (09:00)
[2018-09-27] MEDS: ATORVASTATIN 20 MG TAB PO SCH (09:55)
[2018-09-27] MEDS: CHOLECALCIFEROL 1,000 UNIT TAB PO SCH (09:55)
[2018-09-27] MEDS: MULTIVITAMINS, THERA 1 EACH TAB PO SCH (09:55)
[2018-09-27] MEDS: SPIRONOLACTONE 25 MG TAB PO SCH (09:56)
[2018-09-27] MEDS: ASPIRIN 81 MG PO SCH (09:56)
[2018-09-27 12:15] LABS: Glucose,Whole Blood 196 mg/dL (75-99)
--- NOTE | 2018-09-27 13:35 | P.PN ---
Subjective 83-year-old female has history of COPD also uses 2 L of oxygen at home is admitted for heart failure exacerbation appears to have some diastolic dysf unction. Patient went into renal failure secondary to excessive diuretic therapy and hypotension diuretics DONNA inhibitor will be discontinued. Patient's present creatinine is 1.72 on admission it was 0.86. I'll monitor her 1 more day patient is still hypotensive earlier today, we'll repeat kidney function tomorrow with improvement in kidney function patient can be discharged at that. Patient's ejection fraction is normal may not require lisinopril. 09/27/2018 Time patient's the creatinine continued to worse patient is severely intravascularly volume depleted avoid hypotension avoid the lisinopril unfortunately she received a low-dose of lisinopril today which I believe that discontinued yesterday. Patient will not require lisinopril upon discharge either because of her ejection fraction being normal patient may even require IV fluids since she was admitted with volume overload I'm not starting her on IV fluids at this time nephrology will be consulting although patient can be tra nsferred out of selective care. Constitutional: Denied any fatigue denied any fever. Cardio vascular: denied any chest pain, palpitations Gastrointestinal denied any nausea vomiting Pulmonary: Denied any shortness of breath cough Neurologic denied any new focal deficits All inpatient medications were reviewed and appropriate changes in these medications as dictated in the interval history and assessment and plan. Objective - Vital Signs Vital signs: Vital Signs Temp 97.9 F 09/27/18 08:00 Pulse 65 09/27/18 08:00 Resp 18 09/27/18 08:00 BP 107/62 09/27/18 08:00 Pulse Ox 95 09/27/18 08:05 Intake & Output 09/26/18 09/27/18 09/27/18 18:59 06:59 18:59 Intake Total 360 180 Output Total 750 400 Balance -390 -400 180 Weight 77 kg Intake: Oral 360 180 Output: Urine 750 400 Other: Voiding Method Bedside Commode Bedside Commode Bedside Commode # Voids 1 1 # Bowel Movements 1 - Exam PHYSICAL EXAMINATION: GENERAL: The patient is alert and oriented x3, not in any acute distress. Well developed, well nourished. HEENT: Pupils are round and equally reacting to light. EOMI. No scleral icterus. No conjunctival pallor. Normocephalic, atraumatic. No pharyngeal erythema. No thyromegaly. CARDIOVASCULAR: S1 and S2 present. No murmurs, rubs, or gallops. PULMONARY: Chest is clear to auscultation, no wheezing or crackles. ABDOMEN: Soft, nontender, nondistended, normoactive bowel sounds. No palpable organomegaly. MUSCULOSKELETAL: No joint swelling or deformity. EXTREMITIES: No cyanosis, clubbing, or pedal edema. NEUROLOGICAL: Gross neurological examination did not reveal any focal deficits. SKIN: No rashes. - Labs CBC & Chem 7: 09/22/18 15:42 09/27/18 05:58 Labs: Abnormal Lab Results - Last 24 Hours (Table) 09/26/18 09/26/18 09/27/18 Range/Units 16:55 20:12 05:58 Chloride 86 L (98-107) mmol/L Carbon Dioxide 43 H* (22-30) mmol/L BUN 57 H (7-17) mg/dL Creatinine 2.45 H (0.52-1.04) mg/dL Glucose 141 H (74-99) mg/dL POC Glucose (mg/dL) 219 H 167 H (75-99) mg/dL 09/27/18 09/27/18 Range/Units 06:00 11:52 Chloride (98-107) mmol/L Carbon Dioxide (22-30) mmol/L BUN (7-17) mg/dL Creatinine (0.52-1.04) mg/dL Glucose (74-99) mg/dL POC Glucose (mg/dL) 139 H 196 H (75-99) mg/dL Microbiology - Last 24 Hours (Table) 09/22/18 16:02 Blood Culture - Preliminary Blood No Growth after 96 hours Assessment and Plan Plan: -Shortness of breath possibly of acute heart failure exacerbation probably chronic diastolic dysfunction with acute exacerbation presently hypovolemic management as mentioned above -Acute renal failure secondary to hypertension and excessive diuretic therapy further management as mentioned in the interval history repeat basic metabolic profile tomorrow hypertension patient is presently hypotensive Consult nephrology patient may even need IV fluidsmy discussion DONNA inhibitors diuretic therapy. --COPD without any acute exacerbation does have chronic hypercapnic respiratory failure uses 2 L of oxygen which will be continued -Type 2 diabetes mellitus -Hyperlipidemia -Elevated troponin secondary to heart failure exacerbation
[2018-09-27 17:10] LABS: Glucose,Whole Blood 180 mg/dL (75-99)
[2018-09-27 20:44] LABS: Glucose,Whole Blood 133 mg/dL (75-99)
[2018-09-27] MEDS: INSULIN DETEMIR (LEVEMIR) 100 UNIT/ML SYR SQ SCH (21:27)
[2018-09-28 06:48] LABS: Glucose,Whole Blood 187 mg/dL (75-99)
[2018-09-28] MEDS: INSULIN ASPART (NovoLOG) 100 UNIT/ML VIAL SQ SCH ×4 (06:58→22:27)
[2018-09-28] MEDS: CARVEDILOL 12.5 MG TAB PO SCH ×2 (06:58→17:49)
[2018-09-28 08:13] LABS: Calcium 8.9 mg/dL (8.4-10.2); Potassium 4.8 mmol/L (3.5-5.1)
[2018-09-28] MEDS: CHOLECALCIFEROL 1,000 UNIT TAB PO SCH (08:36)
[2018-09-28] MEDS: ATORVASTATIN 20 MG TAB PO SCH (08:36)
[2018-09-28] MEDS: MULTIVITAMINS, THERA 1 EACH TAB PO SCH (08:36)
[2018-09-28] MEDS: ASPIRIN 81 MG PO SCH (08:36)
--- NOTE | 2018-09-28 12:23 | CONS ---
CONSULTATION REASON FOR CONSULT: Renal failure. HISTORY OF PRESENT ILLNESS: Patient is an 83-year-old female who was admitted with a serum creatinine of 0.8 mg/dL on 09/22/2018. Her creatinine this morning is up to 2.6 mg/dL. The patient states she has been voiding. She was maintained on DONNA inhibitors, which are now discontinued. The patient was initially volume overloaded and she has been diuresed. Diuretics are currently on hold. PHYSICAL EXAMINATION: On examination, blood pressure was 92/46, heart rate 52 per minute. She is afebrile. EXAMINATION OF THE HEART: S1, S2. EXAMINATION OF THE LUNGS: Bilateral breath sounds are heard. Abdomen is soft, nontender. Examination of lower extremities shows no significant edema. skin changes are noted. SOFTBALL COACH EXAM: Grossly intact. LABS: Labs show sodium 138, potassium 4.8, chloride 87, CO2 is 44, BUN 62, serum creatinine 2.6. ASSESSMENT: Acute kidney injury secondary to recent diuresis and hypotension. Continue off diuretics for now and also continue to avoid DONNA inhibitors. Check urinalysis. Check ultrasound of the kidneys. Consider adding IV fluids if renal function does not improve. Monitor eyes and nose closely. Thank you for the consultation. We will continue to follow the patient with you during her hospitalization. MMODL / IJN: [id number] /
[2018-09-28 12:41] LABS: Glucose,Whole Blood 123 mg/dL (75-99)
--- NOTE | 2018-09-28 15:48 | US ---
EXAMINATION TYPE: US kidneys/renal and bladder DATE OF EXAM: 09/28/2018 COMPARISON: US CLINICAL HISTORY: Renal failure. Diabetic EXAM MEASUREMENTS: Right Kidney: 8.4 x 5.2 x 4.8 cm Left Kidney: 7.6 x 4.1 x 4.8 cm Post Void Residual Volume: bladder not seen US exam is technically limited by overlying bowel gas. Right Kidney: No hydronephrosis or masses seen Left Kidney: hyperechoic focus = 0.6 x 0.6 x 0.7 noted in lower pole with posterior shadowing may be calcification as seen on prior US; small hyperechoic focus in mid cortex may be vessel wall calcifica tion Bladder: not seen, not prepped There is no evidence for hydronephrosis at this point in time. No masses are identified. Cortical medullary differentiation is maintained. IMPRESSION: Findings are similar to prior exam. Kidney sizes as described. There is left nephrolithiasis.
--- NOTE | 2018-09-28 15:53 | XR ---
EXAMINATION TYPE: XR chest 1V DATE OF EXAM: 09/28/2018 COMPARISON: Prior chest x-ray 09/22/2018 HISTORY: Congestive heart failure TECHNIQUE: Single frontal view of the chest is obtained. FINDINGS: Heart is enlarged. Central vascularity appears prominently. Suspect some improvement in ae ration. No pneumothorax. Prominent lung volumes may be indicative of underlying COPD. Prominence of t he pulmonary artery may be indicative of pulmonary artery hypertension. Infrahilar increased density again noted on the right. IMPRESSION: Cardiomegaly. Suspect some improvement in aeration. Difficult to exclude some underlying airspace disease. Follow-up suggested.
[2018-09-28 17:39] LABS: Glucose,Whole Blood 193 mg/dL (75-99)
--- NOTE | 2018-09-28 19:05 | P.PN ---
Subjective Principal diagnosis: Worsening heart failure Anticipated discharged late last week however, creatinine did creep up this weekend and she has Due to acute kidney injury most likely related to diuresis.The patient seems quite agitated today. Objective - Vital Signs Vital signs: Vital Signs Temp 97.6 F 09/28/18 14:17 Pulse 57 L 09/28/18 14:17 Resp 18 09/28/18 14:17 BP 99/56 09/28/18 14:17 Pulse Ox 96 09/28/18 14:17 Intake & Output 09/28/18 09/28/18 09/29/18 06:59 18:59 06:59 Intake Total 500 290 Balance 500 290 Weight 76.1 kg Intake: Oral 500 290 Other: Voiding Method Bedside Commode # Voids 2 1 - Constitutional General appearance: Present: no acute distress - EENT Eyes: Absent: abnormal pupil - Neck Neck: Absent: lymphadenopathy - Respiratory Respiratory: bilateral: diminished - Cardiovascular Rhythm: irregularly irregular Heart sounds: normal: S1, S2 Abnormal Heart Sounds: Absent: S3 Gallop - Gastrointestinal General gastrointestinal: Absent: distended - Labs CBC & Chem 7: 09/22/18 15:42 09/28/18 07:23 Labs: Abnormal Lab Results - Last 24 Hours (Table) 09/27/18 09/28/18 09/28/18 Range/Units 20:31 06:46 07:23 Chloride 87 L (98-107) mmol/L Carbon Dioxide 44 H* (22-30) mmol/L BUN 62 H (7-17) mg/dL Creatinine 2.66 H (0.52-1.04) mg/dL Glucose 149 H (74-99) mg/dL POC Glucose (mg/dL) 133 H 187 H (75-99) mg/dL 09/28/18 09/28/18 Range/Units 12:02 17:37 Chloride (98-107) mmol/L Carbon Dioxide (22-30) mmol/L BUN (7-17) mg/dL Creatinine (0.52-1.04) mg/dL Glucose (74-99) mg/dL POC Glucose (mg/dL) 123 H 193 H (75-99) mg/dL Microbiology - Last 24 Hours (Table) 09/22/18 16:02 Blood Culture - Final Blood No Growth after 144 hours Assessment and Plan (1) Acute CHF Current Visit: Yes Status: Acute Code(s): I50.9 - HEART FAILURE, UNSPECIFIED SNOMED Code(s): 92485490 (2) Dyspnea Current Visit: Yes Status: Acute Code(s): R06.00 - DYSPNEA, UNSPECIFIED SNOMED Code(s): 070168501 (3) Elevated troponin Current Visit: Yes Status: Acute Code(s): R74.8 - ABNORMAL LEVELS OF OTHER SERUM ENZYMES SNOMED Code(s): 115939037 Plan: Acute kidney injury. Medication changes with possible IV hydration as necessary. Check CMP in a.m. Appreciate cardiology input.
[2018-09-28 22:00] LABS: Glucose,Whole Blood 131 mg/dL (75-99)
[2018-09-28] MEDS: INSULIN DETEMIR (LEVEMIR) 100 UNIT/ML SYR SQ SCH (22:25)
[2018-09-29 07:04] LABS: Glucose,Whole Blood 86 mg/dL (75-99)
[2018-09-29] MEDS: INSULIN ASPART (NovoLOG) 100 UNIT/ML VIAL SQ SCH ×4 (07:19→21:33)
[2018-09-29] MEDS: CARVEDILOL 12.5 MG TAB PO SCH ×2 (08:06→17:16)
[2018-09-29] MEDS: ASPIRIN 81 MG PO SCH (08:06)
[2018-09-29] MEDS: ATORVASTATIN 20 MG TAB PO SCH (08:06)
[2018-09-29] MEDS: CALCITRIOL 0.25 MCG CAP PO SCH (08:06)
[2018-09-29] MEDS: CHOLECALCIFEROL 1,000 UNIT TAB PO SCH (08:06)
[2018-09-29] MEDS: MULTIVITAMINS, THERA 1 EACH TAB PO SCH (08:06)
[2018-09-29 10:03] LABS: Albumin 3.5 g/dL (3.5-5.0); Potassium 5.6 mmol/L (3.5-5.1); Total Bilirubin 0.7 mg/dL (0.2-1.3); Total Protein 6.2 g/dL (6.3-8.2)
[2018-09-29] MEDS ORDERED: INSULIN REGULAR 100 UNIT/ML VIAL IV ONE (10:32)
[2018-09-29] MEDS ORDERED: DEXTROSE 10 % IN WATER 250 ML BAG IV STA (10:32)
--- NOTE | 2018-09-29 10:33 | P.PN ---
Subjective Patient is seen in follow-up for acute kidney injury on chronic kidney disease. Patient has chronic kidney disease stage III with baseline creatinine outpatient mostly in the range of 1.2-1.6 secondary to diabetic kidney disease. Patient was being diuresed for volume overload. Diuretics are currently held. Creatinine peaked at 2.66 this admission and is 2.45 today. She has been voiding. No edema. Oral intake is fair. No vomiting or diarrhea. Vital signs are stable. General: The patient appeared well nourished and normally developed. HEENT: Head exam is unremarkable. Neck is without jugular venous distension. LUNGS: Lungs are clear to auscultation and percussion. Breath sounds decreased. HEART: Rate and Rhythm are regular. First and second heart sounds normal. No murmurs, rubs or gallops. ABDOMEN: Abdominal exam reveals normal bowel sounds. Non-tender and non- distended. No evidence of peritonitis. EXTREMITITES: No clubbing, cyanosis, or edema. Objective - Vital Signs Vital signs: Vital Signs Temp 97.6 F 09/29/18 06:11 Pulse 55 L 09/29/18 06:11 Resp 16 09/29/18 08:00 BP 90/44 09/29/18 06:11 Pulse Ox 94 L 09/29/18 06:11 Intake & Output 09/28/18 09/29/18 09/29/18 18:59 06:59 18:59 Intake Total 290 200 Output Total 1 Balance 290 199 Weight 77.4 kg Intake: Oral 290 200 Output: Urine 1 Other: Voiding Method Bedside Commode Bedside Commode # Voids 1 0 1 # Bowel Movements 0 1 - Labs CBC & Chem 7: 09/22/18 15:42 09/29/18 09:15 Labs: Abnormal Lab Results - Last 24 Hours (Table) 09/28/18 09/28/18 09/28/18 Range/Units 12:02 17:37 21:59 Potassium (3.5-5.1) mmol/L Chloride (98-107) mmol/L Carbon Dioxide (22-30) mmol/L BUN (7-17) mg/dL Creatinine (0.52-1.04) mg/dL Glucose (74-99) mg/dL POC Glucose (mg/dL) 123 H 193 H 131 H (75-99) mg/dL Total Protein (6.3-8.2) g/dL 09/29/18 Range/Units 09:15 Potassium 5.6 H (3.5-5.1) mmol/L Chloride 88 L (98-107) mmol/L Carbon Dioxide 42 H* (22-30) mmol/L BUN 64 H (7-17) mg/dL Creatinine 2.45 H (0.52-1.04) mg/dL Glucose 136 H (74-99) mg/dL POC Glucose (mg/dL) (75-99) mg/dL Total Protein 6.2 L (6.3-8.2) g/dL Microbiology - Last 24 Hours (Table) 09/22/18 16:02 Blood Culture - Final Blood No Growth after 144 hours Assessment and Plan Plan: Assessment: 1. Acute kidney injury secondary to ATN secondary to diuresis. Creatinine peaked at 2.66 this admission and is 2.45 today. No hydronephrosis noted on renal ultrasound. 2. Chronic kidney disease stage III with baseline creatinine in the range of 1.2-1.6 outpatient. Etiology is diabetic kidney disease. Kidneys are noted to be small in size. 3. Diabetes mellitus. 4. Diastolic CHF. 5. Volume overload. Improved. 6. 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 7. Chronic kidney disease mineral bone disease maintained on calcitriol. 8. Metabolic alkalosis secondary to volume contraction from diuresis. Partially also due to underlying compensation for chronic respiratory acidosis due to underlying COPD. Plan: Continue to hold off on diuretics. Encourage oral intake. Low potassium diet. 10 units of IV insulin with an amp of D50 now. Repeat potassium level this evening.
[2018-09-29 12:35] LABS: Glucose,Whole Blood 143 mg/dL (75-99)
[2018-09-29 13:27] VITALS: BMI 31.1
[2018-09-29 17:18] LABS: Glucose,Whole Blood 206 mg/dL (75-99)
[2018-09-29 20:09] LABS: Appearance,Urine Clear (Clear); Bilirubin,Urine Negative (Negative); Blood,Urine Small (Negative); Color,Urine Yellow; Glucose,Urine (UA) Negative (Negative); Hyaline Casts,Urine 1 /lpf (0-2); Ketones,Urine Negative (Negative); Leukocyte Esterase,Urine Small (Negative); Nitrite,Urine Negative (Negative); PH, Urine 6.5 (5.0-8.0); Protein,Urine Negative (Negative); RBC,Urine 19 /hpf (0-5); Squamous Epithelial Cell,Urine <1 /hpf (0-4); Urobilinogen,Urine <2.0 mg/dL (<2.0); WBC,Urine 4 /hpf (0-5)
[2018-09-29] MEDS: INSULIN DETEMIR (LEVEMIR) 100 UNIT/ML SYR SQ SCH (21:33)
[2018-09-29 21:37] LABS: Glucose,Whole Blood 173 mg/dL (75-99)
[2018-09-29] MEDS: ALBUTEROL NEBULIZED (CONC) 15 MG, SODIUM CHLORIDE 0.9% NEBULIZ 3 ML INHALATION ONE ×4 (21:38→21:47)
[2018-09-30 07:23] LABS: Glucose,Whole Blood 130 mg/dL (75-99)
[2018-09-30] MEDS: MULTIVITAMINS, THERA 1 EACH TAB PO SCH (08:07)
[2018-09-30] MEDS: ASPIRIN 81 MG PO SCH (08:08)
[2018-09-30] MEDS: ATORVASTATIN 20 MG TAB PO SCH (08:08)
[2018-09-30] MEDS: CHOLECALCIFEROL 1,000 UNIT TAB PO SCH (08:08)
[2018-09-30] MEDS: CARVEDILOL 12.5 MG TAB PO SCH ×2 (08:08→17:41)
[2018-09-30] MEDS: INSULIN ASPART (NovoLOG) 100 UNIT/ML VIAL SQ SCH ×4 (08:08→21:53)
--- NOTE | 2018-09-30 10:30 | P.PN ---
Subjective Patient is seen in follow-up for acute kidney injury on chronic kidney disease. Patient has chronic kidney disease stage III with baseline creatinine outpatient mostly in the range of 1.2-1.6 secondary to diabetic kidney disease. Patient was being diuresed for volume overload. Diuretics are currently held. Creatinine peaked at 2.66 this admission and was 2.45 as of yesterday. She has been voiding. No edema. Oral intake is fair. No vomiting or diarrhea. Potassium level V.5 as of last night. Vital signs are stable. General: The patient appeared well nourished and normally developed. HEENT: Head exam is unremarkable. Neck is without jugular venous distension. LUNGS: Lungs are clear to auscultation and percussion. Breath sounds decreased. HEART: Rate and Rhythm are regular. First and second heart sounds normal. No murmurs, rubs or gallops. ABDOMEN: Abdominal exam reveals normal bowel sounds. Non-tender and non- distended. No evidence of peritonitis. EXTREMITITES: No clubbing, cyanosis, or edema. Objective - Vital Signs Vital signs: Vital Signs Temp 97.5 F L 09/30/18 06:12 Pulse 69 09/30/18 06:12 Resp 18 09/30/18 06:12 BP 93/58 09/30/18 06:12 Pulse Ox 98 09/30/18 06:12 Intake & Output 09/29/18 09/30/18 09/30/18 18:59 06:59 18:59 Output Total 600 Balance -600 Weight 77.4 kg 75.7 kg Output: Urine 600 Other: # Voids 1 # Bowel Movements 1 - Labs CBC & Chem 7: 09/22/18 15:42 09/29/18 17:22 Labs: Abnormal Lab Results - Last 24 Hours (Table) 09/29/18 09/29/18 09/29/18 Range/Units 12:33 17:13 17:22 Potassium 5.5 H (3.5-5.1) mmol/L POC Glucose (mg/dL) 143 H 206 H (75-99) mg/dL Urine Blood (Negative) Ur Leukocyte Esterase (Negative) Urine RBC (0-5) /hpf 09/29/18 09/29/18 09/30/18 Range/Units 19:30 21:28 07:15 Potassium (3.5-5.1) mmol/L POC Glucose (mg/dL) 173 H 130 H (75-99) mg/dL Urine Blood Small H (Negative) Ur Leukocyte Esterase Small H (Negative) Urine RBC 19 H (0-5) /hpf Assessment and Plan Plan: Assessment: 1. Acute kidney injury secondary to ATN secondary to diuresis. Creatinine peaked at 2.66 this admission and was 2.45 as of yesterday. No hydronephrosis noted on renal ultrasound. 2. Chronic kidney disease stage III with baseline creatinine in the range of 1.2-1.6 outpatient. Etiology is diabetic kidney disease. Kidneys are noted to be small in size. 3. Diabetes mellitus. 4. Diastolic CHF. 5. Volume overload. Improved. 6. 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 7. Chronic kidney disease mineral bone disease maintained on calcitriol. 8. Metabolic alkalosis secondary to volume contraction from diuresis. Partially also due to underlying compensation for chronic respiratory acidosis due to underlying COPD. Plan: Continue to hold off on diuretics. Encourage oral intake. Low potassium diet. Morning labs pending. If renal function improving and potassium level better, she can be discharged home. Repeat blood work in 2-3 days. Case discussed with the attending physician.
[2018-09-30 11:50] LABS: Albumin 3.4 g/dL (3.5-5.0); Calcium 9.1 mg/dL (8.4-10.2); Magnesium 2.1 mg/dL (1.6-2.3); Potassium 5.6 mmol/L (3.5-5.1); Total Bilirubin 0.6 mg/dL (0.2-1.3); Total Protein 5.9 g/dL (6.3-8.2)
[2018-09-30 12:31] LABS: Glucose,Whole Blood 136 mg/dL (75-99)
[2018-09-30] MEDS ORDERED: INSULIN REGULAR 100 UNIT/ML VIAL IV ONE (14:40)
[2018-09-30] MEDS ORDERED: ALBUTEROL NEBULIZED 2.5 MG/3 ML INHALATION STA (14:41)
[2018-09-30] MEDS ORDERED: DEXTROSE 50% SYRINGE 50 ML IVP STA (14:48)
--- NOTE | 2018-09-30 15:49 | P.PN ---
Subjective Principal diagnosis: Hyperkalemia The patient is here essentially because of cardiopathy history with shortness of breath. This has been resolving with diuresis. She has an element of COPD and mild cognitive impairment. We are watching her potassium closely. Discussion with nephrology this morning. Objective - Vital Signs Vital signs: Vital Signs Temp 97.7 F 09/30/18 15:00 Pulse 65 09/30/18 15:00 Resp 20 09/30/18 15:00 BP 111/69 09/30/18 15:00 Pulse Ox 94 L 09/30/18 15:00 Intake & Output 09/29/18 09/30/18 09/30/18 18:59 06:59 18:59 Output Total 600 Balance -600 Weight 77.4 kg 75.7 kg Output: Urine 600 Other: Voiding Method Bedside Commode # Voids 1 # Bowel Movements 1 - Constitutional General appearance: Present: average body habitus, no acute distress - EENT Eyes: Absent: abnormal pupil - Neck Neck: Present: lymphadenopathy - Respiratory Respiratory: bilateral: CTA - Cardiovascular Heart sounds: normal: S1, S2 Abnormal Heart Sounds: Absent: S3 Gallop - Labs CBC & Chem 7: 09/22/18 15:42 09/30/18 10:58 Labs: Abnormal Lab Results - Last 24 Hours (Table) 09/29/18 09/29/18 09/29/18 Range/Units 17:13 17:22 19:30 Sodium (137-145) mmol/L Potassium 5.5 H (3.5-5.1) mmol/L Chloride (98-107) mmol/L Carbon Dioxide (22-30) mmol/L BUN (7-17) mg/dL Creatinine (0.52-1.04) mg/dL Glucose (74-99) mg/dL POC Glucose (mg/dL) 206 H (75-99) mg/dL Total Protein (6.3-8.2) g/dL Albumin (3.5-5.0) g/dL Urine Blood Small H (Negative) Ur Leukocyte Esterase Small H (Negative) Urine RBC 19 H (0-5) /hpf 09/29/18 09/30/18 09/30/18 Range/Units 21:28 07:15 10:58 Sodium 136 L (137-145) mmol/L Potassium 5.6 H (3.5-5.1) mmol/L Chloride 91 L (98-107) mmol/L Carbon Dioxide 39 H (22-30) mmol/L BUN 68 H (7-17) mg/dL Creatinine 2.22 H (0.52-1.04) mg/dL Glucose 161 H (74-99) mg/dL POC Glucose (mg/dL) 173 H 130 H (75-99) mg/dL Total Protein 5.9 L (6.3-8.2) g/dL Albumin 3.4 L (3.5-5.0) g/dL Urine Blood (Negative) Ur Leukocyte Esterase (Negative) Urine RBC (0-5) /hpf 09/30/18 Range/Units 12:25 Sodium (137-145) mmol/L Potassium (3.5-5.1) mmol/L Chloride (98-107) mmol/L Carbon Dioxide (22-30) mmol/L BUN (7-17) mg/dL Creatinine (0.52-1.04) mg/dL Glucose (74-99) mg/dL POC Glucose (mg/dL) 136 H (75-99) mg/dL Total Protein (6.3-8.2) g/dL Albumin (3.5-5.0) g/dL Urine Blood (Negative) Ur Leukocyte Esterase (Negative) Urine RBC (0-5) /hpf Assessment and Plan (1) Acute CHF Current Visit: Yes Status: Acute Code(s): I50.9 - HEART FAILURE, UNSPECIFIED SNOMED Code(s): 40701082 (2) Dyspnea Current Visit: Yes Status: Acute Code(s): R06.00 - DYSPNEA, UNSPECIFIED SNOMED Code(s): 995316176 (3) Elevated troponin Current Visit: Yes Status: Acute Code(s): R74.8 - ABNORMAL LEVELS OF OTHER SERUM ENZYMES SNOMED Code(s): 415777342 Plan: The patient is potassium will be followed closely. renal function is slowly improving. New graft check CMP in a.m. Despite discharge in a.m.
[2018-09-30] MEDS ORDERED: ALBUTEROL NEB (CONC) 2.5 MG/0.5 ML INHALATION ONE (16:15)
[2018-09-30 16:25] LABS: Basophils % (A) 1 %; Eosinophils # (A) 0.2 k/uL (0-0.7); Eosinophils % (A) 3 %; HCT 34.7 % (34.0-46.0); Hypochromasia Slight; Lymphocytes # (A) 0.9 k/uL (1.0-4.8); Lymphocytes % (A) 20 %; MCH 31.1 pg (25.0-35.0); MCHC 31.6 g/dL (31.0-37.0); MCV 98.4 fL (80.0-100.0); Mean Platelet Volume 10.4; Monocytes # (A) 0.5 k/uL (0-1.0); Monocytes % (A) 11 %; Neutrophils % (A) 63 %; Platelet Count 138 k/uL (150-450); RBC 3.53 m/uL (3.80-5.40); RDW 13.2 % (11.5-15.5); WBC 4.8 k/uL (3.8-10.6)
[2018-09-30 17:24] LABS: Glucose,Whole Blood 199 mg/dL (75-99)
[2018-09-30 20:23] LABS: Glucose,Whole Blood 210 mg/dL (75-99)
[2018-09-30] MEDS: INSULIN DETEMIR (LEVEMIR) 100 UNIT/ML SYR SQ SCH (21:43)
[2018-10-01 07:14] LABS: Glucose,Whole Blood 120 mg/dL (75-99)
--- NOTE | 2018-10-01 07:43 | P.DS ---
Providers Date of admission: 09/22/18 17:34 Attending physician: Axel Cotter Consults: 09/22/18 17:16 Consult Physician Stat Consulting Provider: Aide Salazar Consult Reason/Comments: CHF, elevated trop Do you want consulting provider notified?: Yes 09/27/18 13:00 Consult Physician Routine Consulting Provider: Geovanni Ybarra Consult Reason/Comments: RAMÓN Do you want consulting provider notified?: Yes Primary care physician: Axel Cotter - Discharge Diagnosis(es) (1) Acute CHF Current Visit: Yes Status: Acute (2) Dyspnea Current Visit: Yes Status: Acute (3) Elevated troponin Current Visit: Yes Status: Acute Hospital Course: The patient is an 83-year-old white female essentially minute for shortness of breath. She hasn't underlying history of cardiac myopathy but echocardiogram has been actually excellent. She ended up getting diuresis which caused acute renal failure. This is now resolving but she had elevated slight elevated potassium. If her potassium is normal today on the day of discharge, we will discharge her in stable condition to follow-up with me in one week. Patient Condition at Discharge: Stable Plan - Discharge Summary New Discharge Prescriptions: Continue Multivitamins, Thera [Multivitamin (formulary)] 1 tab PO DAILY Insulin Glargine [Lantus] 17 units SQ HS INSULIN ASPART (NovoLOG) [NovoLOG (formulary)] See Protocol INJ ACHS Atorvastatin [Lipitor] 20 mg PO DAILY Aspirin 81 mg PO DAILY Lisinopril [Zestril] 5 mg PO BID #180 tablet Calcitriol 0.5 mcg PO TUTH Cholecalciferol [Vitamin D3 (25 Mcg = 1000 Iu)] 1,000 unit PO DAILY Metoprolol Tartrate [Lopressor] 50 mg PO BID Discontinued aMILoride-HCTZ 5-50 mg [Moduretic 5-50] 1 tab PO DAILY amLODIPine [Norvasc] 10 mg PO DAILY #15 tablet Discharge Medication List Aspirin 81 mg PO DAILY 12/23/13 [History] Atorvastatin [Lipitor] 20 mg PO DAILY 12/23/13 [History] INSULIN ASPART (NovoLOG) [NovoLOG (formulary)] See Protocol INJ ACHS 12/23/13 [History] Insulin Glargine [Lantus] 17 units SQ HS 12/23/13 [History] Multivitamins, Thera [Multivitamin (formulary)] 1 tab PO DAILY 12/23/13 [History] Lisinopril [Zestril] 5 mg PO BID #180 tablet 05/16/16 [Rx] Calcitriol 0.5 mcg PO TUTH 09/01/18 [History] Cholecalciferol [Vitamin D3 (25 Mcg = 1000 Iu)] 1,000 unit PO DAILY 09/01/18 [History] Metoprolol Tartrate [Lopressor] 50 mg PO BID 09/01/18 [History] Follow up Appointment(s)/Referral(s): Aide Salazar MD [STAFF PHYSICIAN] - 09/30/18 4:15 pm (Friday) Axel Cotter MD [Primary Care Provider] - 3 Days (Friday -previously scheduled appointment) Patient Instructions/Handouts: Heart Failure (DC) Discharge Disposition: HOME SELF-CARE
[2018-10-01] MEDS: INSULIN ASPART (NovoLOG) 100 UNIT/ML VIAL SQ SCH ×2 (07:47→12:13)
[2018-10-01] MEDS: MULTIVITAMINS, THERA 1 EACH TAB PO SCH (07:49)
[2018-10-01] MEDS: CHOLECALCIFEROL 1,000 UNIT TAB PO SCH (07:49)
[2018-10-01] MEDS: ASPIRIN 81 MG PO SCH (07:49)
[2018-10-01] MEDS: ATORVASTATIN 20 MG TAB PO SCH (07:49)
[2018-10-01] MEDS: CARVEDILOL 12.5 MG TAB PO SCH (07:49)
[2018-10-01 08:30] LABS: Calcium 9.3 mg/dL (8.4-10.2)
--- NOTE | 2018-10-01 08:58 | P.PN ---
Subjective Patient is seen in follow-up for acute kidney injury on chronic kidney disease. Patient has chronic kidney disease stage III with baseline creatinine outpatient mostly in the range of 1.2-1.6 secondary to diabetic kidney disease. Patient was being diuresed for volume overload. Diuretics are currently held. Creatinine peaked at 2.66 this admission and is down to 2.2 today. She has been voiding. No edema. Oral intake is fair. No vomiting or diarrhea. Potassium level better today. Vital signs are stable. General: The patient appeared well nourished and normally developed. HEENT: Head exam is unremarkable. Neck is without jugular venous distension. LUNGS: Lungs are clear to auscultation and percussion. Breath sounds decreased. HEART: Rate and Rhythm are regular. First and second heart sounds normal. No murmurs, rubs or gallops. ABDOMEN: Abdominal exam reveals normal bowel sounds. Non-tender and non- distended. No evidence of peritonitis. EXTREMITITES: No clubbing, cyanosis, or edema. Objective - Vital Signs Vital signs: Vital Signs Temp 97.1 F L 10/01/18 05:00 Pulse 53 L 10/01/18 05:00 Resp 18 10/01/18 08:00 BP 101/63 10/01/18 05:00 Pulse Ox 97 10/01/18 05:00 Intake & Output 09/30/18 10/01/18 10/01/18 18:59 06:59 18:59 Intake Total 250 Output Total 900 Balance -650 Intake: Oral 250 Output: Urine 900 Other: Voiding Method Bedside Commode Bedside Commode Bedside Commode # Voids 0 1 - Labs CBC & Chem 7: 09/30/18 10:58 10/01/18 07:42 Labs: Abnormal Lab Results - Last 24 Hours (Table) 09/30/18 09/30/18 09/30/18 Range/Units 10:58 10:58 12:25 RBC 3.53 L (3.80-5.40) m/uL Hgb 11.0 L (11.4-16.0) gm/dL Plt Count 138 L (150-450) k/uL Lymphocytes # 0.9 L (1.0-4.8) k/uL Sodium 136 L (137-145) mmol/L Potassium 5.6 H (3.5-5.1) mmol/L Chloride 91 L (98-107) mmol/L Carbon Dioxide 39 H (22-30) mmol/L BUN 68 H (7-17) mg/dL Creatinine 2.22 H (0.52-1.04) mg/dL Glucose 161 H (74-99) mg/dL POC Glucose (mg/dL) 136 H (75-99) mg/dL Total Protein 5.9 L (6.3-8.2) g/dL Albumin 3.4 L (3.5-5.0) g/dL 09/30/18 09/30/18 10/01/18 Range/Units 17:18 20:02 07:13 RBC (3.80-5.40) m/uL Hgb (11.4-16.0) gm/dL Plt Count (150-450) k/uL Lymphocytes # (1.0-4.8) k/uL Sodium (137-145) mmol/L Potassium (3.5-5.1) mmol/L Chloride (98-107) mmol/L Carbon Dioxide (22-30) mmol/L BUN (7-17) mg/dL Creatinine (0.52-1.04) mg/dL Glucose (74-99) mg/dL POC Glucose (mg/dL) 199 H 210 H 120 H (75-99) mg/dL Total Protein (6.3-8.2) g/dL Albumin (3.5-5.0) g/dL 10/01/18 Range/Units 07:42 RBC (3.80-5.40) m/uL Hgb (11.4-16.0) gm/dL Plt Count (150-450) k/uL Lymphocytes # (1.0-4.8) k/uL Sodium (137-145) mmol/L Potassium (3.5-5.1) mmol/L Chloride 93 L (98-107) mmol/L Carbon Dioxide 40 H (22-30) mmol/L BUN 70 H (7-17) mg/dL Creatinine 2.20 H (0.52-1.04) mg/dL Glucose 125 H (74-99) mg/dL POC Glucose (mg/dL) (75-99) mg/dL Total Protein (6.3-8.2) g/dL Albumin (3.5-5.0) g/dL Assessment and Plan Plan: Assessment: 1. Acute kidney injury secondary to ATN secondary to diuresis. Creatinine peaked at 2.66 this admission and is down to 2.2 today. No hydronephrosis noted on renal ultrasound. 2. Chronic kidney disease stage III with baseline creatinine in the range of 1.2-1.6 outpatient. Etiology is diabetic kidney disease. Kidneys are noted to be small in size. 3. Diabetes mellitus. 4. Diastolic CHF. 5. Volume overload. Improved. 6. 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 Better with medical management. 7. Chronic kidney disease mineral bone disease maintained on calcitriol. 8. Metabolic alkalosis secondary to volume contraction from diuresis. Partially also due to underlying compensation for chronic respiratory acidosis due to underlying COPD. Plan: Start torsemide 5 mg daily for chronic hyperkalemia. I advised her to follow a low potassium diet. Stable to be discharged home from nephrology standpoint. Repeat BMP and magnesium level in 2-3 days. Follow-up outpatient in the next 1-2 weeks.
[2018-10-01] MEDS ORDERED: TORSEMIDE 20 MG TAB PO SCH (09:00)
[2018-10-01] MEDS: CALCITRIOL 0.25 MCG CAP PO SCH (10:17)
[2018-10-01 11:51] LABS: Glucose,Whole Blood 289 mg/dL (75-99)
[2018-10-01 14:03] VITALS: BP 103/48; PULSE 50; RESP 16; TEMP 97.7
== END 2018-10-01 15:03 | disposition home or self-care (01) | DRG 291 ==
LOC: EC 15:28 → 3SCARD 17:34 → 4MS4W 09-28 09:55
PROVIDERS: ADMIT Family Medicine; ATTEND Family Medicine
DX: I13.0 Hypertensive heart and chronic kidney disease with heart failure and stage 1 through stage 4 chronic kidney disease, or unspecified chronic kidney disease (principal); N17.0 Acute kidney failure with tubular necrosis; I50.43 Acute on chronic combined systolic (congestive) and diastolic (congestive) heart failure; C34.90 Malignant neoplasm of unspecified part of unspecified bronchus or lung; E87.4 Mixed disorder of acid-base balance; E87.3 Alkalosis; I42.9 Cardiomyopathy, unspecified; J44.9 Chronic obstructive pulmonary disease, unspecified; E78.5 Hyperlipidemia, unspecified; F41.9 Anxiety disorder, unspecified; F17.200 Nicotine dependence, unspecified, uncomplicated; G31.84 Mild cognitive impairment of uncertain or unknown etiology; H35.30 Unspecified macular degeneration; Z96.652 Presence of left artificial knee joint; R74.8 Abnormal levels of other serum enzymes; E11.9 Type 2 diabetes mellitus without complications; I25.10 Atherosclerotic heart disease of native coronary artery without angina pectoris; N18.3 Chronic kidney disease, stage 3 (moderate); R94.39 Abnormal result of other cardiovascular function study; I95.9 Hypotension, unspecified; E86.9 Volume depletion, unspecified; T50.2X5A Adverse effect of carbonic-anhydrase inhibitors, benzothiadiazides and other diuretics, initial encounter; E11.22 Type 2 diabetes mellitus with diabetic chronic kidney disease; M19.90 Unspecified osteoarthritis, unspecified site; E87.5 Hyperkalemia; M89.8X9 Other specified disorders of bone, unspecified site; Z79.82 Long term (current) use of aspirin; Z79.899 Other long term (current) drug therapy; Z79.4 Long term (current) use of insulin; Z99.81 Dependence on supplemental oxygen; Z90.49 Acquired absence of other specified parts of digestive tract
CPT/HCPCS: 36415; 71045; 71046; 76770; 80048; 80053; 81001; 81003; 83036; 83605; 83735; 83880; 84132; 84484; 85025; 85610; 85730; 87040; 93005; 93306; 94640; 94760; 96361; 96374; 99285

== ENCOUNTER 2019-02-27 10:40 | Inpatient (IN) | payer MEDICARE ==
[2019-02-27] MEDS ORDERED: ASPIRIN 81 MG PO STA (10:52)
[2019-02-27] MEDS ORDERED: SODIUM CHLORIDE 0.9% 500 ML 500 ML IV STA (10:52)
[2019-02-27 10:57] LABS: Glucose,Whole Blood 225 mg/dL (75-99)
[2019-02-27 11:09] LABS: VBG PH 7.23 (7.31-7.41)
--- NOTE | 2019-02-27 11:15 | ED ---
General Adult HPI - General Chief complaint: Altered Mental Status Stated complaint: Altered Time Seen by Provider: 02/27/19 10:52 Source: EMS Mode of arrival: EMS Limitations: no limitations - History of Present Illness Initial comments: Dictation was produced using [employer] dictation software. please excuse any grammatical, word or spelling errors. Chief Complaint: 83-year-old female brought in by EMS for altered mental status since yesterday. History of Present Illness:-year-old female she is unable to provide history at this time. Patient is brought in by EMS. According to EMS patient has been altered since approximately 12 PM yesterday. Over the past 24 hours patient was sitting at the dinner table with her arms folded and she lives at home with her . So morning she was found still sitting at the dinner table with altered mental status. EMS reports that her sugars elevated at 390. Was found to be slightly hypoxic and with slightly low blood pressure according to EMS. According to EMS patient wears oxygen at baseline. She was evaluated the house and was not using her oxygen. EMS provided patient with nonrebreather Unable to obtain review of systems secondary to mental status PHYSICAL EXAM: General Impression: AO 2/4, not in acute distress, repetitive speech saying "good [place]" constantly. HEENT: Normocephalic atraumatic, extra-ocular movements intact, pupils equal and reactive to light bilaterally, dry mucous membranes Cardiovascular: Heart regular rate and rhythm, S1&S2 audible, no murmurs, rubs or gallops Chest: Diminished lung sounds bilaterally Abdomen: Bowel sounds present, abdomen soft, non-tender, non-distended, no organomegaly Musculoskeletal: Pulses present and equal in all extremities, no peripheral edema Motor: no focal deficits noted Neurological: CN II-XII grossly intact, moves all extremities grossly, no facial droop, densely aphasic, repetitive speech Skin: Scaly skin diffusely, cyanotic to the distal extremities ED course: 83-year-old female presents with altered mental status. Patient has been having symptoms for the past 24 hours. Patient had TPA candidate however patient will have stroke workup. 81% on room air, rest of vital signs within acceptable limits She is 81 oxygen to room air. Patient is placed on BiPAP. Laboratory evaluation obtained. CBC unremarkable. Metabolic panel shows potassium 5.6. Elevated renal markers. Hyperglycemia. PH of 7.2 with a pCO2 of 92. Urinalysis consistent with urinary tract infection. Given that there was concern of intracranial process CT and CT angios was obtained showing no acute processes but there is slight attenuation of the right MCA branches. Patient treated with hyperkalemia medications. She is also treated with antibiotics to cover for COPD exacerbation, urinary tract infection. Patient was reevaluated at bedside after several hours of BiPAP. Patient of AO 4. She states that she is sore along her whole body.Patient has elevated troponin which I believe is elevated from infection. Nonetheless patient be admitted for serial troponins as well. Pulmonary to be on consult. EKG interpretation: Ventricular rate 72, normal sinus rhythm, MD interval 166, QRS 94, QTC 457. No MD prolongation, no QTC prolongation, no ST or T-wave changes noted. EKG compared to 02/27/2019 showing no changes. Overall, this EKG is unremarkable - Related Data Home Medications Medication Instructions Recorded Confirmed Aspirin 81 mg PO DAILY 12/23/13 09/22/18 Atorvastatin [Lipitor] 20 mg PO DAILY 12/23/13 09/22/18 INSULIN ASPART (NovoLOG) [NovoLOG See Protocol INJ ACHS 12/23/13 09/22/18 (formulary)] Insulin Glargine [Lantus] 17 units SQ HS 12/23/13 09/22/18 Multivitamins, Thera [Multivitamin 1 tab PO DAILY 12/23/13 09/22/18 (formulary)] Calcitriol 0.5 mcg PO TUTH 09/01/18 09/22/18 Cholecalciferol [Vitamin D3 (25 1,000 unit PO DAILY 09/01/18 09/22/18 Mcg = 1000 Iu)] Metoprolol Tartrate [Lopressor] 50 mg PO BID 09/01/18 09/22/18 Previous Rx's Medication Instructions Recorded Lisinopril [Zestril] 5 mg PO BID #180 tablet 05/16/16 Allergies Allergy/AdvReac Type Severity Reaction Status Date / Time No Known Allergies Allergy Verified 09/22/18 17:54 Review of Systems ROS Statement: Those systems with pertinent positive or pertinent negative responses have been documented in the HPI. ROS Other: All systems not noted in ROS Statement are negative. Past Medical History Past Medical History: Asthma, Cancer, COPD, Diabetes Mellitus, Hyperlipidemia, Hypertension, Osteoarthritis (OA) Additional Past Medical History / Comment(s): LUNG CANCER-LEFT LUNG, PAIN IN FEET , MACULAR DEGENERATION, EDEMA IN LEG, kidney disease History of Any Multi-Drug Resistant Organisms: None Reported Past Surgical History: Appendectomy, Hernia Repair, Joint Replacement Additional Past Surgical History / Comment(s): UMBILICAL HERNIA, LEFT KNEE REPLACEMENT Past Anesthesia/Blood Transfusion Reactions: No Reported Reaction Past Psychological History: Anxiety Smoking Status: Former smoker Past Alcohol Use History: None Reported Past Drug Use History: None Reported - Past Family History Mother Family Medical History: No Reported History Additional Family Medical History / Comment(s): NO KNOWN HISTORY- ADOPTED General Exam Limitations: no limitations Course Vital Signs 02/27/19 02/27/19 02/27/19 10:44 11:23 11:48 Pulse Rate 90 75 74 Respiratory 16 20 16 Rate Blood Pressure 108/57 119/74 119/74 O2 Sat by Pulse 81 L 100 99 Oximetry 02/27/19 02/27/19 14:08 14:24 Pulse Rate 60 63 Respiratory Rate Blood Pressure O2 Sat by Pulse Oximetry Medical Decision Making - Lab Data Result diagrams: 02/27/19 10:57 02/27/19 10:57 Lab Results 02/27/19 02/27/19 02/27/19 Range/Units 10:55 10:57 10:57 WBC 7.5 (3.8-10.6) k/uL RBC 4.19 (3.80-5.40) m/uL Hgb 13.0 (11.4-16.0) gm/dL Hct 43.2 (34.0-46.0) % MCV 103.1 H (80.0-100.0) fL MCH 31.0 (25.0-35.0) pg MCHC 30.1 L (31.0-37.0) g/dL RDW 13.2 (11.5-15.5) % Plt Count 214 (150-450) k/uL Neutrophils % 84 % Lymphocytes % 7 % Monocytes % 8 % Eosinophils % 0 % Basophils % 0 % Neutrophils # 6.3 (1.3-7.7) k/uL Lymphocytes # 0.5 L (1.0-4.8) k/uL Monocytes # 0.6 (0-1.0) k/uL Eosinophils # 0.0 (0-0.7) k/uL Basophils # 0.0 (0-0.2) k/uL Hypochromasia Marked Macrocytosis Slight PT (9.0-12.0) sec INR (<1.2) APTT (22.0-30.0) sec VBG pH (7.31-7.41) VBG pCO2 (37-51) mmHg VBG HCO3 (24-28) mmol/L Sodium 140 (137-145) mmol/L Potassium 5.6 H (3.5-5.1) mmol/L Chloride 96 L (98-107) mmol/L Carbon Dioxide 36 H (22-30) mmol/L Anion Gap 8 mmol/L BUN 24 H (7-17) mg/dL Creatinine 1.31 H (0.52-1.04) mg/dL Est GFR (CKD-EPI)AfAm 44 (>60 ml/min/1.73 sqM) Est GFR (CKD-EPI)NonAf 38 (>60 ml/min/1.73 sqM) Glucose 240 H (74-99) mg/dL POC Glucose (mg/dL) 225 H (75-99) mg/dL POC Glu Route [employer] Supervisor ID [place], [place] Plasma Lactic Acid Jose (0.7-2.0) mmol/L Calcium 9.4 (8.4-10.2) mg/dL Magnesium 2.6 H (1.6-2.3) mg/dL Total Bilirubin 0.9 (0.2-1.3) mg/dL AST 27 (14-36) U/L ALT 20 (4-34) U/L Alkaline Phosphatase 104 (38-126) U/L Ammonia (<30) umol/L Troponin I (0.000-0.034) ng/mL Total Protein 7.2 (6.3-8.2) g/dL Albumin 4.1 (3.5-5.0) g/dL Urine Color Urine Appearance (Clear) Urine pH (5.0-8.0) Ur Specific Hector (1.001-1.035) Urine Protein (Negative) Urine Glucose (UA) (Negative) Urine Ketones (Negative) Urine Blood (Negative) Urine Nitrite (Negative) Urine Bilirubin (Negative) Urine Urobilinogen (<2.0) mg/dL Ur Leukocyte Esterase (Negative) Urine RBC (0-5) /hpf Urine WBC (0-5) /hpf Urine WBC Clumps (None) /hpf Ur Squamous Epith Cells (0-4) /hpf Urine Bacteria (None) /hpf Hyaline Casts (0-2) /lpf Urine Mucus (None) /hpf Urine Yeast (Budding) (None) /hpf 02/27/19 02/27/19 02/27/19 Range/Units 10:57 10:57 10:57 WBC (3.8-10.6) k/uL RBC (3.80-5.40) m/uL Hgb (11.4-16.0) gm/dL Hct (34.0-46.0) % MCV (80.0-100.0) fL MCH (25.0-35.0) pg MCHC (31.0-37.0) g/dL RDW (11.5-15.5) % Plt Count (150-450) k/uL Neutrophils % % Lymphocytes % % Monocytes % % Eosinophils % % Basophils % % Neutrophils # (1.3-7.7) k/uL Lymphocytes # (1.0-4.8) k/uL Monocytes # (0-1.0) k/uL Eosinophils # (0-0.7) k/uL Basophils # (0-0.2) k/uL Hypochromasia Macrocytosis PT 10.2 (9.0-12.0) sec INR 0.9 (<1.2) APTT 25.5 (22.0-30.0) sec VBG pH (7.31-7.41) VBG pCO2 (37-51) mmHg VBG HCO3 (24-28) mmol/L Sodium (137-145) mmol/L Potassium (3.5-5.1) mmol/L Chloride (98-107) mmol/L Carbon Dioxide (22-30) mmol/L Anion Gap mmol/L BUN (7-17) mg/dL Creatinine (0.52-1.04) mg/dL Est GFR (CKD-EPI)AfAm (>60 ml/min/1.73 sqM) Est GFR (CKD-EPI)NonAf (>60 ml/min/1.73 sqM) Glucose (74-99) mg/dL POC Glucose (mg/dL) (75-99) mg/dL POC Glu Route [employer] Supervisor ID Plasma Lactic Acid Jose 2.0 (0.7-2.0) mmol/L Calcium (8.4-10.2) mg/dL Magnesium (1.6-2.3) mg/dL Total Bilirubin (0.2-1.3) mg/dL AST (14-36) U/L ALT (4-34) U/L Alkaline Phosphatase (38-126) U/L Ammonia 41 H (<30) umol/L Troponin I 0.038 H* (0.000-0.034) ng/mL Total Protein (6.3-8.2) g/dL Albumin (3.5-5.0) g/dL Urine Color Urine Appearance (Clear) Urine pH (5.0-8.0) Ur Specific Hector (1.001-1.035) Urine Protein (Negative) Urine Glucose (UA) (Negative) Urine Ketones (Negative) Urine Blood (Negative) Urine Nitrite (Negative) Urine Bilirubin (Negative) Urine Urobilinogen (<2.0) mg/dL Ur Leukocyte Esterase (Negative) Urine RBC (0-5) /hpf Urine WBC (0-5) /hpf Urine WBC Clumps (None) /hpf Ur Squamous Epith Cells (0-4) /hpf Urine Bacteria (None) /hpf Hyaline Casts (0-2) /lpf Urine Mucus (None) /hpf Urine Yeast (Budding) (None) /hpf 02/27/19 02/27/19 Range/Units 10:57 10:57 WBC (3.8-10.6) k/uL RBC (3.80-5.40) m/uL Hgb (11.4-16.0) gm/dL Hct (34.0-46.0) % MCV (80.0-100.0) fL MCH (25.0-35.0) pg MCHC (31.0-37.0) g/dL RDW (11.5-15.5) % Plt Count (150-450) k/uL Neutrophils % % Lymphocytes % % Monocytes % % Eosinophils % % Basophils % % Neutrophils # (1.3-7.7) k/uL Lymphocytes # (1.0-4.8) k/uL Monocytes # (0-1.0) k/uL Eosinophils # (0-0.7) k/uL Basophils # (0-0.2) k/uL Hypochromasia Macrocytosis PT (9.0-12.0) sec INR (<1.2) APTT (22.0-30.0) sec VBG pH 7.23 L (7.31-7.41) VBG pCO2 92 H* (37-51) mmHg VBG HCO3 37 H (24-28) mmol/L Sodium (137-145) mmol/L Potassium (3.5-5.1) mmol/L Chloride (98-107) mmol/L Carbon Dioxide (22-30) mmol/L Anion Gap mmol/L BUN (7-17) mg/dL Creatinine (0.52-1.04) mg/dL Est GFR (CKD-EPI)AfAm (>60 ml/min/1.73 sqM) Est GFR (CKD-EPI)NonAf (>60 ml/min/1.73 sqM) Glucose (74-99) mg/dL POC Glucose (mg/dL) (75-99) mg/dL POC Glu Route [employer] D[employer] Supervisor ID Plasma Lactic Acid Jose (0.7-2.0) mmol/L Calcium (8.4-10.2) mg/dL Magnesium (1.6-2.3) mg/dL Total Bilirubin (0.2-1.3) mg/dL AST (14-36) U/L ALT (4-34) U/L Alkaline Phosphatase (38-126) U/L Ammonia (<30) umol/L Troponin I (0.000-0.034) ng/mL Total Protein (6.3-8.2) g/dL Albumin (3.5-5.0) g/dL Urine Color Yellow Urine Appearance Turbid H (Clear) Urine pH 5.5 (5.0-8.0) Ur Specific Hector 1.027 (1.001-1.035) Urine Protein 2+ H (Negative) Urine Glucose (UA) Negative (Negative) Urine Ketones Negative (Negative) Urine Blood Trace H (Negative) Urine Nitrite Negative (Negative) Urine Bilirubin 1+ H (Negative) Urine Urobilinogen 2.0 (<2.0) mg/dL Ur Leukocyte Esterase Large H (Negative) Urine RBC 6 H (0-5) /hpf Urine WBC 120 H (0-5) /hpf Urine WBC Clumps Many H (None) /hpf Ur Squamous Epith Cells 6 H (0-4) /hpf Urine Bacteria Many H (None) /hpf Hyaline Casts 7 H (0-2) /lpf Urine Mucus Rare H (None) /hpf Urine Yeast (Budding) Rare H (None) /hpf Critical Care Time Critical Care Time: Yes (31) Disposition Clinical Impression: Altered mental status, Respiratory failure with hypoxia, Hypercarbia Disposition: ADMITTED IP TO THIS HOSP Condition: Fair Referrals: Axel Cotter MD [Primary Care Provider] - 1-2 days Decision Time: 14:59
[2019-02-27 11:17] LABS: INR 0.9 (<1.2); Partial Thromboplastin Time 25.5 sec (22.0-30.0); Prothrombin Time 10.2 sec (9.0-12.0)
[2019-02-27 11:18] LABS: Albumin 4.1 g/dL (3.5-5.0); Calcium 9.4 mg/dL (8.4-10.2); Magnesium 2.6 mg/dL (1.6-2.3); Potassium 5.6 mmol/L (3.5-5.1); Total Bilirubin 0.9 mg/dL (0.2-1.3); Total Protein 7.2 g/dL (6.3-8.2)
[2019-02-27 11:25] LABS: Basophils % (A) 0 %; Eosinophils % (A) 0 %; HCT 43.2 % (34.0-46.0); Hypochromasia Marked; Lymphocytes # (A) 0.5 k/uL (1.0-4.8); Lymphocytes % (A) 7 %; MCHC 30.1 g/dL (31.0-37.0); MCV 103.1 fL (80.0-100.0); Macrocytosis Slight; Mean Platelet Volume 7.3; Monocytes # (A) 0.6 k/uL (0-1.0); Monocytes % (A) 8 %; Neutrophils # (A) 6.3 k/uL (1.3-7.7); Neutrophils % (A) 84 %; Platelet Count 214 k/uL (150-450); RBC 4.19 m/uL (3.80-5.40); RDW 13.2 % (11.5-15.5); WBC 7.5 k/uL (3.8-10.6)
[2019-02-27] MEDS ORDERED: LORazepam 2 MG/ML INJ IV STA (11:25)
--- NOTE | 2019-02-27 11:31 | CT ---
EXAMINATION TYPE: CT brain wo con DATE OF EXAM: 02/27/2019 COMPARISON: NONE HISTORY: Altered mental status CT DLP: 1118.8 mGycm Automated exposure control for dose reduction was used. FINDINGS: There are generalized changes of sulcal prominence and ventriculomegaly, compatible with atrophic loree nge. There is diffuse periventricular white matter lucency, compatible with chronic white matter isch emic change. There is no acute focal lesion, mass effect or midline shift identified. I do not see ev idence of intracranial blood. Visualized portions of the paranasal sinuses and mastoids are clear. The bony calvarium is intact. IMPRESSION: 1. NO ACUTE INTRACRANIAL ABNORMALITY. 2. ATROPHIC CHANGE. 3. CHRONIC WHITE MATTER ISCHEMIC CHANGE.
[2019-02-27] MEDS ORDERED: ASPIRIN 600 MG SUPP RECTAL STA (11:32)
[2019-02-27 12:11] LABS: Appearance,Urine Turbid (Clear); Bacteria,Urine Many /hpf; Bilirubin,Urine 1+ (Negative); Blood,Urine Trace (Negative); Budding Yeast,Urine Rare /hpf; Color,Urine Yellow; Glucose,Urine (UA) Negative (Negative); Hyaline Casts,Urine 7 /lpf (0-2); Ketones,Urine Negative (Negative); Leukocyte Esterase,Urine Large (Negative); Mucus,Urine Rare /hpf; Nitrite,Urine Negative (Negative); PH, Urine 5.5 (5.0-8.0); Protein,Urine 2+ (Negative); RBC,Urine 6 /hpf (0-5); Specific Gravity,Urine 1.027 (1.001-1.035); Squamous Epithelial Cell,Urine 6 /hpf (0-4); WBC,Urine 120 /hpf (0-5)
[2019-02-27] MEDS ORDERED: SODIUM POLYSTYRENE SULFONATE 30 GM/120 ML BOTTLE RECTAL STA (12:39)
[2019-02-27] MEDS ORDERED: INSULIN REGULAR 100 UNIT/ML VIAL IV ONE (12:40)
[2019-02-27] MEDS ORDERED: DEXTROSE 10 % IN WATER 250 ML IV ONE (12:40)
--- NOTE | 2019-02-27 13:14 | XR ---
EXAMINATION TYPE: XR chest 1V portable DATE OF EXAM: 02/27/2019 HISTORY: altered mental status. REFERENCE: Previous study dated 09/28/2018. FINDINGS: The heart is enlarged. There is bibasilar airspace disease. There is an enlarging right-shakira ed effusion. IMPRESSION: 1. CARDIOMEGALY. 2. BIBASILAR AIRSPACE DISEASE. 3. ENLARGING RIGHT-SIDED EFFUSION.
[2019-02-27] MEDS: ALBUTEROL NEB (CONC) 2.5 MG/0.5 ML INHALATION ONE ×2 (13:46→14:04)
--- NOTE | 2019-02-27 14:06 | CT ---
EXAMINATION TYPE: CT angio head neck DATE OF EXAM: 02/27/2019 HISTORY: Stroke like symptoms. COMPARISON: Previous CT scan of the brain from earlier today. CT DLP: 444.9 mGycm. Automated Exposure Control for Dose Reduction was Utilized. TECHNIQUE: CTA scan of the neck is performed with IV Contrast, patient injected with 65 mL of Isovue 370, axial images are obtained, coronal and sagittal reformatted images are reviewed. Three-D recons tructed images are created on an independent workstation and reviewed. FINDINGS: There are bilateral pleural effusions, greater on the right than the left. There is depende nt atelectasis in the dependent portions of the lungs. There is underlying emphysematous change. The major salivary glands are unremarkable. Parapharyngeal soft tissues are asymmetric with mild prominence on the left. The thyroid gland enhanc es homogeneously. There are no significant lymph nodes. Vertebral body height is maintained. There is a mild kyphosis. Atlantoaxial relationships are normal. There is severe degenerative disc disease present at C4-5, C5-6 and C6-7. There is hypertrophic spon dylosis and uncovertebral joint disease present at these levels. There is a normal origin of the great vessels. The left vertebral artery is dominant. There is minima l atheromatous calcification present in the right carotid bulb. There is no hemodynamically significa nt stenosis. CTA of the [place] of [place] demonstrates dolichoectasia of the vertebrobasilar system. Calcification within the carotid siphon. Both anterior cerebral arteries are patent. Both middle cerebral arteries are patent. There is normal arborization of the middle cerebral arteries bilaterally. This is a slightly truncated on the right. IMPRESSION: 1. NO SIGNIFICANT STENOSIS IN EITHER CAROTID SYSTEM. 2. SLIGHT ATTENUATION OF THE RIGHT MIDDLE CEREBRAL ARTERY BRANCHES. 3. LEFT VERTEBRAL ARTERY DOMINANCE.
[2019-02-27] MEDS ORDERED: FUROSEMIDE 10 MG/ML 4 ML VIAL IV STA (14:29)
[2019-02-27] MEDS ORDERED: AZITHROMYCIN 500 MG in SODIUM CHLORIDE 0.9% 250 ML IVPB STA (14:29)
[2019-02-27] MEDS ORDERED: ONDANSETRON 4 MG/2 ML VIAL IVP PRN (14:42)
[2019-02-27] MEDS ORDERED: NALOXONE 0.4 MG/ML 1 ML VIAL IV PRN (14:42)
[2019-02-27] MEDS ORDERED: ACETAMINOPHEN TAB 325 MG TAB PO PRN (14:42)
[2019-02-27] MEDS: SODIUM CHLORIDE 0.9% 1,000 ML IV SCH (15:11)
--- NOTE | 2019-02-27 17:06 | P.HPIM ---
History of Present Illness this is a pleasant 83 years old female with past medical history of asthma, COPD, diabetes mellitus, hyperlipidemia, hypertension, osteoarthritis, presents because of altered mental status. patient could not provide information as per documentspatient lives with her on admission she was d desaturating down to 77-80%, also she was tachypneic 21- 25breath per minutes. On VBG she was retaining CO2 with pH 7.2 and pCO2 is 92.potassium was 5.6 and creatinine 1.3, and troponin is elevated at 0.03.CHRONICALLY elevated. sHe was suspicious for infection. Elevated creatinine suspicious for acute kidney injury with hyperkalemia at 5.6. Her baseline creatinine is 0.8-1.2.sugar is elevated brain CT: No acute process.CTA of the brain showing no significant stenosis.chest x-ray: Cardiomegaly with bibasilar air space disease per radiologist and to right-sided pleural effusion. EKG showing normal sinus rhythm at [address]-T changes in the emergency room patient got normal saline boluses at 500 mL, aspirin 600 mg rectally, Rocephin, 1 dose of IV Lasix and started on Zithromax Review of Systems n/a Past Medical History Past Medical History: Asthma, Cancer, COPD, Diabetes Mellitus, Hyperlipidemia, Hypertension, Osteoarthritis (OA) Additional Past Medical History / Comment(s): LUNG CANCER-LEFT LUNG, PAIN IN F EET , MACULAR DEGENERATION, EDEMA IN LEG, kidney disease History of Any Multi-Drug Resistant Organisms: None Reported Past Surgical History: Appendectomy, Hernia Repair, Joint Replacement Additional Past Surgical History / Comment(s): UMBILICAL HERNIA, LEFT KNEE REPLACEMENT Past Anesthesia/Blood Transfusion Reactions: No Reported Reaction Past Psychological History: Anxiety Smoking Status: Former smoker Past Alcohol Use History: None Reported Past Drug Use History: None Reported - Past Family History Mother Family Medical History: No Reported History Additional Family Medical History / Comment(s): NO KNOWN HISTORY- ADOPTED Medications and Allergies Home Medications Medication Instructions Recorded Confirmed Type Aspirin 81 mg PO DAILY 12/23/13 09/22/18 History Atorvastatin [Lipitor] 20 mg PO DAILY 12/23/13 09/22/18 History INSULIN ASPART (NovoLOG) [NovoLOG See Protocol INJ ACHS 12/23/13 09/22/18 History (formulary)] Insulin Glargine [Lantus] 17 units SQ HS 12/23/13 09/22/18 History Multivitamins, Thera [Multivitamin 1 tab PO DAILY 12/23/13 09/22/18 History (formulary)] Lisinopril [Zestril] 5 mg PO BID #180 tablet 05/16/16 09/22/18 Rx Calcitriol 0.5 mcg PO TUTH 09/01/18 09/22/18 History Cholecalciferol [Vitamin D3 (25 1,000 unit PO DAILY 09/01/18 09/22/18 History Mcg = 1000 Iu)] Metoprolol Tartrate [Lopressor] 50 mg PO BID 09/01/18 09/22/18 History Allergies Allergy/AdvReac Type Severity Reaction Status Date / Time No Known Allergies Allergy Verified 09/22/18 17:54 Physical Exam Vitals: Vital Signs Temp Pulse Resp BP Pulse Ox 02/27/19 16:30 98.6 F 72 21 119/74 80 L 02/27/19 16:00 64 25 H 119/74 98 02/27/19 15:30 74 21 119/74 99 02/27/19 15:00 66 17 119/74 99 02/27/19 14:30 65 15 119/74 99 02/27/19 14:24 63 02/27/19 14:08 60 02/27/19 14:00 62 20 119/74 99 02/27/19 13:30 60 11 L 119/74 100 02/27/19 13:00 61 14 100 02/27/19 12:30 58 L 11 L 119/74 100 02/27/19 12:00 63 11 L 119/74 100 02/27/19 11:48 74 16 119/74 99 02/27/19 11:30 76 8 L 119/74 99 02/27/19 11:23 75 20 119/74 100 02/27/19 11:00 77 L 02/27/19 10:59 75 L 02/27/19 10:44 90 16 108/57 81 L Intake and Output 02/27/19 02/27/19 02/27/19 06:59 14:59 22:59 Other: Weight 82.554 kg -GENERAL: patient is confused and could not provide information HEENT: Pupils are round and equally reacting to light. EOMI. No scleral icterus. No conjunctival pallor. Normocephalic, atraumatic. No pharyngeal erythema. No thyromegaly. CARDIOVASCULAR: S1 and S2 present. No murmurs, rubs, or gallops. -PULMONARY: Chest is clear to auscultation,decreased air entry andscattered wheezing and bilateral basal crepitation -ABDOMEN: Soft, nontender, nondistended, normoactive bowel sounds. No palpable organomegaly. Mcintosh catheter is in place MUSCULOSKELETAL: No joint swelling or deformity. -EXTREMITIES: bilateral leg edema NEUROLOGICAL: Gross neurological examination did not reveal any focal deficits. SKIN: No rashes. No petechiae Results CBC & Chem 7: 02/27/19 10:57 02/27/19 10:57 Labs: Abnormal Lab Results - Last 24 Hours (Table) 02/27/19 02/27/19 02/27/19 Range/Units 10:55 10:57 10:57 MCV 103.1 H (80.0-100.0) fL MCHC 30.1 L (31.0-37.0) g/dL Lymphocytes # 0.5 L (1.0-4.8) k/uL VBG pH (7.31-7.41) VBG pCO2 (37-51) mmHg VBG HCO3 (24-28) mmol/L Potassium 5.6 H (3.5-5.1) mmol/L Chloride 96 L (98-107) mmol/L Carbon Dioxide 36 H (22-30) mmol/L BUN 24 H (7-17) mg/dL Creatinine 1.31 H (0.52-1.04) mg/dL Glucose 240 H (74-99) mg/dL POC Glucose (mg/dL) 225 H (75-99) mg/dL Magnesium 2.6 H (1.6-2.3) mg/dL Ammonia (<30) umol/L Troponin I (0.000-0.034) ng/mL Urine Appearance (Clear) Urine Protein (Negative) Urine Blood (Negative) Urine Bilirubin (Negative) Ur Leukocyte Esterase (Negative) Urine RBC (0-5) /hpf Urine WBC (0-5) /hpf Urine WBC Clumps (None) /hpf Ur Squamous Epith Cells (0-4) /hpf Urine Bacteria (None) /hpf Hyaline Casts (0-2) /lpf Urine Mucus (None) /hpf Urine Yeast (Budding) (None) /hpf 02/27/19 02/27/19 02/27/19 Range/Units 10:57 10:57 10:57 MCV (80.0-100.0) fL MCHC (31.0-37.0) g/dL Lymphocytes # (1.0-4.8) k/uL VBG pH 7.23 L (7.31-7.41) VBG pCO2 92 H* (37-51) mmHg VBG HCO3 37 H (24-28) mmol/L Potassium (3.5-5.1) mmol/L Chloride (98-107) mmol/L Carbon Dioxide (22-30) mmol/L BUN (7-17) mg/dL Creatinine (0.52-1.04) mg/dL Glucose (74-99) mg/dL POC Glucose (mg/dL) (75-99) mg/dL Magnesium (1.6-2.3) mg/dL Ammonia 41 H (<30) umol/L Troponin I 0.038 H* (0.000-0.034) ng/mL Urine Appearance (Clear) Urine Protein (Negative) Urine Blood (Negative) Urine Bilirubin (Negative) Ur Leukocyte Esterase (Negative) Urine RBC (0-5) /hpf Urine WBC (0-5) /hpf Urine WBC Clumps (None) /hpf Ur Squamous Epith Cells (0-4) /hpf Urine Bacteria (None) /hpf Hyaline Casts (0-2) /lpf Urine Mucus (None) /hpf Urine Yeast (Budding) (None) /hpf 02/27/19 Range/Units 10:57 MCV (80.0-100.0) fL MCHC (31.0-37.0) g/dL Lymphocytes # (1.0-4.8) k/uL VBG pH (7.31-7.41) VBG pCO2 (37-51) mmHg VBG HCO3 (24-28) mmol/L Potassium (3.5-5.1) mmol/L Chloride (98-107) mmol/L Carbon Dioxide (22-30) mmol/L BUN (7-17) mg/dL Creatinine (0.52-1.04) mg/dL Glucose (74-99) mg/dL POC Glucose (mg/dL) (75-99) mg/dL Magnesium (1.6-2.3) mg/dL Ammonia (<30) umol/L Troponin I (0.000-0.034) ng/mL Urine Appearance Turbid H (Clear) Urine Protein 2+ H (Negative) Urine Blood Trace H (Negative) Urine Bilirubin 1+ H (Negative) Ur Leukocyte Esterase Large H (Negative) Urine RBC 6 H (0-5) /hpf Urine WBC 120 H (0-5) /hpf Urine WBC Clumps Many H (None) /hpf Ur Squamous Epith Cells 6 H (0-4) /hpf Urine Bacteria Many H (None) /hpf Hyaline Casts 7 H (0-2) /lpf Urine Mucus Rare H (None) /hpf Urine Yeast (Budding) Rare H (None) /hpf Assessment and Plan Assessment: acute COPD exacerbation Respiratory acidosis metabolic and respiratory encephalopathy Elevated troponin diabetes mellitus Hyperlipidemia History of asthma Hypertension Osteoarthritis Plan: this is a pleasant 83 years old female who presents with CO2 narcosis and acute COPD exacerbation with UTI and elevated troponin.continue with Rocephin, continue with BiPAP. Consult cardiology service for elevated troponin. Consult pulmonary for respiratory problem. Labs and medication were reviewed.. Continue same treatment. Continue with symptomatic treatment. Resume home medication. Monitor lytes and vitals. DVT and GI prophylaxis. Further recommendations of the clinical course of the patient DVT prophylaxis: Subcutaneous heparin GI Prophylaxis: Pepcid Prognosis is guarded
[2019-02-27] MEDS: INSULIN ASPART (NovoLOG) 100 UNIT/ML VIAL SQ SCH ×2 (18:37→21:58)
[2019-02-27] MEDS: HEPARIN SODIUM,PORCINE 5,000 UNIT/ML 1 ML VIAL SQ SCH ×2 (18:37→22:03)
[2019-02-27] MEDS ORDERED: HEPARIN SODIUM,PORCINE 5,000 UNIT/ML 1 ML VIAL SQ SCH (21:00)
[2019-02-27] MEDS ORDERED: METOPROLOL TARTRATE 50 MG TAB PO SCH (21:00)
[2019-02-27 21:09] LABS: Glucose,Whole Blood 133 mg/dL (75-99)
[2019-02-27] MEDS: LISINOPRIL 5 MG TAB PO SCH (22:00)
[2019-02-27] MEDS: FAMOTIDINE 20 MG/2 ML VIAL IV SCH (22:01)
[2019-02-27] MEDS: methylPREDNISolone SOD SUCCI 40 MG/ML 1 ML VIAL IV SCH (23:50)
[2019-02-28] MEDS: LORazepam 2 MG/ML INJ IV PRN ×3 (00:35→19:58)
[2019-02-28 06:38] LABS: Glucose,Whole Blood 184 mg/dL (75-99)
[2019-02-28 06:59] LABS: Basophils % (A) 0 %; Eosinophils % (A) 0 %; HCT 37.5 % (34.0-46.0); HGB 11.1 gm/dL (11.4-16.0); Hypochromasia Marked; Lymphocytes # (A) 0.2 k/uL (1.0-4.8); Lymphocytes % (A) 4 %; MCHC 29.6 g/dL (31.0-37.0); MCV 101.5 fL (80.0-100.0); Macrocytosis Slight; Mean Platelet Volume 7.8; Monocytes # (A) 0.1 k/uL (0-1.0); Monocytes % (A) 2 %; Neutrophils # (A) 5.6 k/uL (1.3-7.7); Neutrophils % (A) 93 %; Platelet Count 171 k/uL (150-450); RDW 13.5 % (11.5-15.5)
[2019-02-28 07:11] LABS: Calcium 8.8 mg/dL (8.4-10.2); Potassium 5.3 mmol/L (3.5-5.1)
[2019-02-28] MEDS ORDERED: PANTOPRAZOLE 40 MG/10 ML VIAL IV SCH (09:00)
--- NOTE | 2019-02-28 09:10 | US ---
EXAMINATION TYPE: US chest DATE OF EXAM: 02/28/2019 COMPARISON: CXR CLINICAL HISTORY: right pleural effusion . Right pleural effusion TECHNIQUE: Targeted ultrasound of the posterior lower right hemithorax EXAM MEASUREMENTS: Right Pleural Effusion pocket size: 11.0 cm Right skin surface to fluid distance: 4.3 cm Right side marked for possible thoracentesis outside the dept. Pulmonologists are able to review the images in the patient?s EMR. IMPRESSIONS: THERE IS A SMALL POCKET OF FLUID IN THE RIGHT CHEST. THIS WAS MARKED FOR POSSIBLE PARACENTESIS OUTSID E OF THE DEPARTMENT.
[2019-02-28] MEDS: INSULIN ASPART (NovoLOG) 100 UNIT/ML VIAL SQ SCH ×5 (09:43→21:39)
[2019-02-28] MEDS: LISINOPRIL 5 MG TAB PO SCH ×2 (09:44→20:08)
[2019-02-28] MEDS: ASPIRIN 81 MG PO SCH (09:44)
[2019-02-28] MEDS: ATORVASTATIN 20 MG TAB PO SCH (09:44)
[2019-02-28] MEDS: METOPROLOL TARTRATE 25 MG TAB PO SCH ×2 (09:45→20:08)
[2019-02-28] MEDS: methylPREDNISolone SOD SUCCI 40 MG/ML 1 ML VIAL IV SCH ×4 (09:52→23:26)
[2019-02-28] MEDS: FUROSEMIDE 10 MG/ML 4 ML VIAL IV SCH ×2 (09:52→19:55)
[2019-02-28] MEDS: FAMOTIDINE 20 MG/2 ML VIAL IV SCH (09:53)
[2019-02-28] MEDS: HEPARIN SODIUM,PORCINE 5,000 UNIT/ML 1 ML VIAL SQ SCH ×3 (09:53→23:26)
[2019-02-28] MEDS ORDERED: IPRATROPIUM-ALBUTEROL 3 ML NEB INHALATION PRN (10:37)
--- NOTE | 2019-02-28 11:07 | CONS ---
CONSULTATION PULMONARY/CRITICAL CARE CONSULTATION: DATE OF SERVICE: February 28, 2019 REASON FOR CONSULTATION: Mental status changes and CHF. HISTORY OF PRESENT ILLNESS: This is an 83-year-old female brought into the emergency room and evaluated on February 27 for mental status changes. The patient was apparently unable to provide history at the time of her evaluation in the emergency room. She was brought in by EMS. Apparently, the patient had been having issues with her mental status from 12:00 pm on the prior day. Apparently, she had been found sitting at the dinner table for a prolonged period of time with mental status changes. Apparently her blood sugars were elevated at 390. She was found to be slightly hypoxemic and her blood pressure was a bit low. For that reason, she was brought in to be evaluated. EMS did apply oxygen therapy. She apparently has oxygen at home, but was not using it. She has been yelling out for Dr. Salazar her calculus tutor to come see her. Today, she was a bit confused and she was refusing to wear her BiPAP device. Anyway, the patient could not provide any additional history. She was ripping off her BiPAP device. The nurse was sort of wrestling with her at that time. A blood gas in the emergency department showed a pCO2 of 92, and a pH 7.2. Hence, she has a chronic CO2 retainer. Her chest x- ray showed what appeared to be fluid overload with effusions. In the emergency room, she was seen by Dr. Payne, who admitted her with a diagnosis of respiratory failure with hypoxemia, acute on chronic hypercapnic respiratory failure, and mental status changes. HOME MEDICATIONS: Include aspirin, Lipitor, insulin, multivitamins, calcitriol, vitamin D3, Lopressor, and lisinopril. ALLERGIES: Denied. PAST MEDICAL HISTORY: Apparently positive for asthma/COPD, lung cancer, diabetes mellitus, hyperlipidemia, hypertension, and DJD. In addition, she apparently has history of macular degeneration, kidney disease, and lower extremity edema. SURGICAL HISTORY: Includes appendectomy, hernia repair, joint replacement, left knee replacement, umbilical hernia repair, as I mentioned, left knee replacement, umbilical hernia repair. SOCIAL HISTORY: Positive for previous tobacco use. She denies any alcohol or drug use. FAMILY HISTORY: Positive for a mother and father whom she does not know as she is adopted. She does not know her biological parents health history. Review of systems cannot get, totally unreliable. The patient is very confused and disoriented. No precise history can be obtained from her. REVIEW OF SYSTEMS: Could be obtained from her. PHYSICAL EXAMINATION: VITAL SIGNS: Vital signs are reviewed. Temperature 98.9, heart rate 96, respiratory rate 22, blood pressure 109/58, saturations are 96% on BiPAP. On BiPAP at 10 and 5 and 50%. HEENT examination is grossly unremarkable. NECK: Supple. CARDIOVASCULAR examination reveals regular rhythm and rate. Heart rate about 100 beats per minute. It is regular. LUNGS: Reveal some bibasilar crackles. There are a few scattered coarse rhonchi. No wheezes. Breath sounds equal bilaterally. ABDOMEN: Soft. Bowel sounds are heard. EXTREMITIES are intact. Slight edema. SKIN: Without rash. NEUROLOGIC: Examination is difficult to assess. She is very confused and disoriented. She does move all 4 extremities. LABS: White count 6, hemoglobin 11.1, hematocrit 37.5, platelet count 171,000. Sodium 140, potassium 5.3, chloride 97, CO2 40. Anion gap is 3. BUN and creatinine were 25 and 1.31. Based on the bicarbonate concentration of 40, her baseline PaCO2 is roughly 68+/- 2 mmHg. The lactic acid was 1. Her N-terminal proBNP was 7260. Her troponins were 0.029 [address] A brain CT showed no acute intracranial abnormality and just chronic white matter ischemic changes and atrophy. A chest x-ray was consistent with a right-sided effusion. Some bibasilar airspace disease or infiltrate and cardiomegaly. An ultrasound of the chest reveals a right-sided pleural effusion measuring about 11 cm. Microbiology is negative. Her medications are reviewed. She is on Tylenol, aspirin, Lipitor, ceftriaxone, famotidine, Lasix, subcu heparin, insulin, lisinopril, Ativan p.r.n., Solu-Medrol, metoprolol, Narcan, Zofran, Protonix, and her basic IV at 20 mL an hour. ASSESSMENT: 1. Acute on chronic hypoxemic hypercapnic respiratory failure, probably multifactorial in part related to underlying congestive heart failure, but also chronic obstructive pulmonary disease exacerbation and pleural effusion. Rule out myocardial ischemia. 2. Previous history of tobacco use. 3. History of hyperlipidemia. 4. Diabetes mellitus. 5. Vitamin D deficiency. 6. Hypertension. 7. Osteoarthritis. 8. Vague history of lung cancer involving the left lung. 9. Macular degeneration. 10.Multiple orthopedic procedures and other surgical procedures. 11.History of anxiety. PLAN: We will attempt to find out more about her diagnosis of lung cancer. It does not appear that we have seen this patient in the past. We will continue to follow. Additional recommendations and suggestions are forthcoming. She may have seen the other group in the past. Medications are reviewed and adjusted accordingly. MMODL / IJN: [id number] /
--- NOTE | 2019-02-28 11:10 | P.CRDCN ---
History of Present Illness Consult date: 02/28/19 Requesting physician: Marco A Lu Reason for Consult (text): This is a pleasant 83-year-old female who follows regularly with Dr. Salazar in the office. Patient has a known history of diabetes, hypertension, hyperlipidemia, COPD, nicotine dependence, recent diagnosis of bronchogenic lung cancer she underwent a cardiac catheterization because of abnormal stress test in May 2016 which revealed calcified coronary arteries, mild triple- vessel coronary artery disease severely impaired left ventricular systolic function, and her medications were maximized for nonischemic cardiomyopathy. patient was brought to the hospital on this occasion because of mental status changes. Her mentation has been altered since approximately noon the day before yesterday. Apparently the patient was sitting at the kitchen table with her arms folded, when her woke up in the morning she was still sitting at the table in the same location. Her blood sugars on EMS arrival were 390, she was found to be slightly hypoxic and slightly hypotensive by EMS. At the time they evaluated her at home she was not on her oxygen. Patient was brought into the hospital at that time for further evaluation and treatment.a CAT scan of the brain was performed on arrival here which did not show any acute intracranial abnormality.chest x-ray showed cardiomegaly, bibasilar air space disease, enlarging right-sided effusion.CT angiography did not reveal any significant stenosis in either carotid system, slight attenuation of the right middle cerebr al artery branches, left anterior cerebral artery dominance.her EKG showed a normal sinus rhythm with right axis deviation nonspecific ST-T wave changes. An ultrasound of the chest was performed which revealed a small pocket of fluid in the right chest marked for possible thoracentesis.oxygen saturation on arrival here 80%, 77%, patient was placed on a BiPAP,blood pressure 110/50 this morning, 96% on BiPAP, heart rate in the 90s.White blood cell count 6.0, hemoglobin 13 on admission, 11.1 this morning. Platelet count 171. Blood gases, PH on arrival 7.2 pCO2 92 HCO3 37.sodium 140, potassium 5.3, BUN 25, creatinine 1.3.troponin 0.038, 0.029, 0.031.urinalysis showed a large leukocyte Estrace WBCs bacteria 2+ protein. BNP level 7260., when he takes a nonrebreather off she desats high 70s to low 80s. Past Medical History Past Medical History: Asthma, Cancer, COPD, Diabetes Mellitus, Hyperlipidemia, Hypertension, Osteoarthritis (OA) Additional Past Medical History / Comment(s): LUNG CANCER-LEFT LUNG, PAIN IN FEET , MACULAR DEGENERATION, EDEMA IN LEG, kidney disease History of Any Multi-Drug Resistant Organisms: None Reported Past Surgical History: Appendectomy, Hernia Repair, Joint Replacement Additional Past Surgical History / Comment(s): UMBILICAL HERNIA, LEFT KNEE REPLACEMENT Past Anesthesia/Blood Transfusion Reactions: No Reported Reaction Past Psychological History: Anxiety Smoking Status: Former smoker Past Alcohol Use History: None Reported Past Drug Use History: None Reported - Past Family History Mother Family Medical History: No Reported History Additional Family Medical History / Comment(s): NO KNOWN HISTORY- ADOPTED Medications and Allergies Home Medications Medication Instructions Recorded Confirmed Type Aspirin 81 mg PO DAILY 12/23/13 09/22/18 History Atorvastatin [Lipitor] 20 mg PO DAILY 12/23/13 09/22/18 History INSULIN ASPART (NovoLOG) [NovoLOG See Protocol INJ ACHS 12/23/13 09/22/18 History (formulary)] Insulin Glargine [Lantus] 17 units SQ HS 12/23/13 09/22/18 History Multivitamins, Thera [Multivitamin 1 tab PO DAILY 12/23/13 09/22/18 History (formulary)] Lisinopril [Zestril] 5 mg PO BID #180 tablet 05/16/16 09/22/18 Rx Calcitriol 0.5 mcg PO TUTH 09/01/18 09/22/18 History Cholecalciferol [Vitamin D3 (25 1,000 unit PO DAILY 09/01/18 09/22/18 History Mcg = 1000 Iu)] Metoprolol Tartrate [Lopressor] 50 mg PO BID 09/01/18 09/22/18 History Allergies Allergy/AdvReac Type Severity Reaction Status Date / Time No Known Allergies Allergy Verified 09/22/18 17:54 Physical Exam Vitals: Vital Signs Temp Pulse Pulse Resp BP BP Pulse Ox 02/28/19 03:27 98.9 F 96 22 109/58 96 02/28/19 00:00 98.3 F 80 22 106/51 94 L 02/27/19 20:00 97.3 F L 72 20 112/55 97 02/27/19 18:58 96.2 F L 93 21 98/51 92 L 02/27/19 18:38 21 02/27/19 17:00 98.2 F 74 21 127/80 98 02/27/19 16:30 98.6 F 72 21 119/74 80 L 02/27/19 16:00 64 25 H 119/74 98 02/27/19 15:30 131 H 76 H 131/78 99 02/27/19 15:00 66 17 119/74 99 02/27/19 14:30 78 18 132/80 98 02/27/19 14:24 63 02/27/19 14:08 60 02/27/19 14:00 62 20 119/74 99 02/27/19 13:30 74 22 126/78 98 02/27/19 13:00 61 14 100 02/27/19 12:30 58 L 11 L 119/74 100 02/27/19 12:00 63 11 L 119/74 100 02/27/19 11:48 74 16 119/74 99 02/27/19 11:30 76 8 L 119/74 99 02/27/19 11:23 75 20 119/74 100 02/27/19 11:00 77 L 02/27/19 10:59 75 L Intake and Output 02/27/19 02/28/19 02/28/19 22:59 06:59 14:59 Intake Total 40 Output Total 300 Balance -300 40 Intake: Oral 40 Output: Urine 300 Other: Voiding Method Indwelling Catheter Indwelling Catheter Weight 84.5 kg PHYSICAL EXAMINATION: GENERAL:83-year-old female currently sedated at the time of my examination HEENT: Head is atraumatic, normocephalic. Pupils equal, round. Sclera anicteric. Conjunctiva are clear. Mucous membranes of the mouth are moist. Neck is supple. There is elevated jugular venous pressure.no carotid bruit is heard. HEART EXAMINATION:heart S1 S2 1 systolic ejection murmur is heard CHEST EXAMINATION: lungs reveal decreased air exchange throughout, fine wheezing heard ABDOMEN: [ Soft, nontender. Bowel sounds are heard. No organomegaly noted]. EXTREMITIES:[ 2+ peripheral pulses with trace evidence of peripheral edema bilateral erythema noted NEUROLOGIC [patient is sleeping, awakens to touch. Results 02/28/19 06:18 02/28/19 06:18 Cardiac Enzymes 02/27/19 02/27/19 02/27/19 Range/Units 10:57 10:57 16:37 AST 27 (14-36) U/L Troponin I 0.038 H* 0.029 (0.000-0.034) ng/mL 02/27/19 Range/Units 23:05 AST (14-36) U/L Troponin I 0.031 (0.000-0.034) ng/mL Coagulation 02/27/19 Range/Units 10:57 PT 10.2 (9.0-12.0) sec APTT 25.5 (22.0-30.0) sec Lipids 02/28/19 Range/Units 06:18 Triglycerides 79 (<150) mg/dL Cholesterol 108 (<200) mg/dL HDL Cholesterol 55 (40-60) mg/dL CBC 02/27/19 02/28/19 Range/Units 10:57 06:18 WBC 7.5 6.0 (3.8-10.6) k/uL RBC 4.19 3.70 L (3.80-5.40) m/uL Hgb 13.0 11.1 L (11.4-16.0) gm/dL Hct 43.2 37.5 (34.0-46.0) % Plt Count 214 171 (150-450) k/uL Comprehensive Metabolic Panel 02/27/19 02/28/19 Range/Units 10:57 06:18 Sodium 140 140 (137-145) mmol/L Potassium 5.6 H 5.3 H (3.5-5.1) mmol/L Chloride 96 L 97 L (98-107) mmol/L Carbon Dioxide 36 H 40 H (22-30) mmol/L BUN 24 H 25 H (7-17) mg/dL Creatinine 1.31 H 1.31 H (0.52-1.04) mg/dL Glucose 240 H 178 H (74-99) mg/dL Calcium 9.4 8.8 (8.4-10.2) mg/dL AST 27 (14-36) U/L ALT 20 (4-34) U/L Alkaline Phosphatase 104 (38-126) U/L Total Protein 7.2 (6.3-8.2) g/dL Albumin 4.1 (3.5-5.0) g/dL Current Medications Generic Name Dose Route Start Last Admin Trade Name Freq PRN Reason Stop Dose Admin Acetaminophen 650 mg 02/27/19 14:42 Tylenol Tab PO Q6HR PRN Mild Pain or Fever > 100.5 Albuterol/Ipratropium 3 ml 02/28/19 10:37 Duoneb 0.5 Mg-3 Mg/3 Ml Soln INHALATION RT-QID PRN Shortness Of Breath Or Wheezing Albuterol/Ipratropium 3 ml 02/28/19 12:00 Duoneb 0.5 Mg-3 Mg/3 Ml Soln INHALATION RT-QID MARAH Aspirin 81 mg 02/28/19 09:00 02/28/19 09:44 Aspirin PO Not Given DAILY [facility] Atorvastatin Calcium 20 mg 02/28/19 09:00 02/28/19 09:44 Lipitor PO Not Given DAILY [facility] Budesonide 1 mg 02/28/19 20:00 Pulmicort INHALATION RT-BID MARAH Famotidine 20 mg 02/27/19 21:00 02/28/19 09:53 Pepcid IV 20 mg Q12HR MARAH Administration Formoterol Fumarate 20 mcg 02/28/19 20:00 Perforomist INHALATION RT-BID [facility] Furosemide 40 mg 02/28/19 09:00 02/28/19 09:52 Lasix IV 40 mg Q12HR MARAH Administration Heparin Sodium (Porcine) 5,000 unit 02/27/19 16:00 02/28/19 09:53 Heparin SQ 5,000 unit Q8HR MARAH Administration Sodium Chloride 1,000 mls @ 20 mls/hr 02/27/19 14:45 02/27/19 15:11 Saline 0.9% IV 20 mls/hr .Q24H MARAH Administration Ceftriaxone Sodium 1 gm/ 50 mls @ 100 mls/hr 02/28/19 13:00 Sodium Chloride IVPB Q24H [facility] Insulin Aspart 0 unit 02/27/19 16:00 02/28/19 09:43 Novolog SQ Not Given TID [facility] Protocol Lisinopril 5 mg 02/27/19 21:00 02/28/19 09:44 Zestril PO Not Given BID [facility] Lorazepam 0.5 mg 02/28/19 00:20 02/28/19 09:11 Ativan IV 0.5 mg Q6HR PRN Administration Anxiety Methylprednisolone Sodium Succinate 40 mg 02/28/19 12:00 Solu-Medrol IV Q6HR [facility] Metoprolol Tartrate 25 mg 02/28/19 09:00 02/28/19 09:45 Lopressor PO Not Given BID [facility] Naloxone HCl 0.2 mg 02/27/19 14:42 Narcan IV Q2M PRN Opioid Reversal Ondansetron HCl 4 mg 02/27/19 14:42 Zofran IVP Q8HR PRN Nausea And Vomiting Pantoprazole Sodium 40 mg 02/28/19 09:00 02/28/19 09:52 Protonix IV 40 mg DAILY [facility] Administration Intake and Output 02/27/19 02/28/19 02/28/19 22:59 06:59 14:59 Intake Total 40 Output Total 300 Balance -300 40 Intake: Oral 40 Output: Urine 300 Other: Voiding Method Indwelling Catheter Indwelling Catheter Weight 84.5 kg 02/28/19 06:18 02/28/19 06:18 EKG Interpretations (text) EKG shows normal sinus rhythm with nonspecific ST-T wave changes Assessment and Plan Plan: Assessment and plan #1 mental status changes, likely secondary to hypoxia, O2 saturation 77-80% on EMS arrival, patient is currently on a nonrebreather. Evidence of right sided effusion #2 nonischemic cardiomyopathy, cardiac catheterization was performed in 2016 and revealed mild triple-vessel coronary artery disease #3 hypertension #4 COPD #5 bronchogenic lung cancer #6 diabetes #7 hyperlipidemia #8 nicotine dependence #9 abnormal troponin, not significant with coronary syndrome, with no significant rise and fall pattern. Prior troponin similar abnormal range. #10 mild diastolic congestive heart failure acute on chronic plan Patient's most recent echocardiogram with Doppler study was performed in September which revealed a normal left ventricular systolic function.we will repeat an echocardiogram with Doppler study.we will continue current dose of IV Lasix. Overall prognosis for the patient is guarded. DNP note has been reviewed, I agree with a documented findings and plan of care. Patient was seen and examined.
[2019-02-28] MEDS: IPRATROPIUM-ALBUTEROL 3 ML NEB INHALATION SCH ×3 (12:09→19:03)
[2019-02-28 12:31] LABS: Glucose,Whole Blood 243 mg/dL (75-99)
--- NOTE | 2019-02-28 12:35 | P.PN ---
Subjective this is a pleasant 83 years old female with past medical history of asthma, COPD, diabetes mellitus, hyperlipidemia, hypertension, osteoarthritis, presents because of altered mental status. patient could not provide information as per documentspatient lives with her on admission she was d desaturating down to 77-80%, also she was tachypneic 21- 25breath per minutes. On VBG she was retaining CO2 with pH 7.2 and pCO2 is 92.potassium was 5.6 and creatinine 1.3, and troponin is elevated at 0.03.CHRONICALLY elevated. sHe was suspicious for infection. Elevated creatinine suspicious for acute kidney injury with hyperkalemia at 5.6. Her baseline creatinine is 0.8-1.2.sugar is elevated brain CT: No acute process.CTA of the brain showing no significant stenosis.chest x-ray: Cardiomegaly with bibasilar air space disease per radiologist and to right-sided pleural effusion. EKG showing normal sinus rhythm at [address]-T changes in the emergency room patient got normal saline boluses at 500 mL, aspirin 600 mg rectally, Rocephin, 1 dose of IV Lasix and started on Zithromax 02/28/2019 Patient is still confused and could not provide information. Patient is BiPAP dependent once the mass taken off she desaturates to 70s to 80s percent. Also she is tachypneic at 22-23/m, she is slightly febrile 99.7. Labs showing no leukocytosis, stable creatinine at 1.3, potassium 5.3, glucose 184. Ultrasound of the right side of the chest showing 11 cm. Also patient at time is combative and she needed Ativan to calm her down. Patient is currently on diuretic, antibiotic and steroids. Cardiology and pulmonary team are following the patient closely Review of system: N/a Active Medications Generic Name Dose Route Start Last Admin Trade Name Freq PRN Reason Stop Dose Admin Acetaminophen 650 mg 02/27/19 14:42 Tylenol Tab PO Q6HR PRN Mild Pain or Fever > 100.5 Albuterol/Ipratropium 3 ml 02/28/19 10:37 Duoneb 0.5 Mg-3 Mg/3 Ml Soln INHALATION RT-QID PRN Shortness Of Breath Or Wheezing Albuterol/Ipratropium 3 ml 02/28/19 12:00 02/28/19 12:09 Duoneb 0.5 Mg-3 Mg/3 Ml Soln INHALATION 3 ml RT-QID MARAH Administration Aspirin 81 mg 02/28/19 09:00 02/28/19 09:44 Aspirin PO Not Given DAILY [facility] Atorvastatin Calcium 20 mg 02/28/19 09:00 02/28/19 09:44 Lipitor PO Not Given DAILY [facility] Budesonide 1 mg 02/28/19 20:00 Pulmicort INHALATION RT-BID [facility] Famotidine 20 mg 02/27/19 21:00 02/28/19 09:53 Pepcid IV 20 mg Q12HR [facility] Administration Formoterol Fumarate 20 mcg 02/28/19 20:00 Perforomist INHALATION RT-BID [facility] Furosemide 40 mg 02/28/19 09:00 02/28/19 09:52 Lasix IV 40 mg Q12HR [facility] Administration Heparin Sodium (Porcine) 5,000 unit 02/27/19 16:00 02/28/19 09:53 Heparin SQ 5,000 unit Q8HR [facility] Administration Sodium Chloride 1,000 mls @ 20 mls/hr 02/27/19 14:45 02/27/19 15:11 Saline 0.9% IV 20 mls/hr .Q24H [facility] Administration Ceftriaxone Sodium 1 gm/ 50 mls @ 100 mls/hr 02/28/19 13:00 Sodium Chloride IVPB Q24H [facility] Insulin Aspart 0 unit 02/27/19 16:00 02/28/19 09:43 Novolog SQ Not Given TID [facility] Protocol Lisinopril 5 mg 02/27/19 21:00 02/28/19 09:44 Zestril PO Not Given BID [facility] Lorazepam 0.5 mg 02/28/19 00:20 02/28/19 09:11 Ativan IV 0.5 mg Q6HR PRN Administration Anxiety Methylprednisolone Sodium Succinate 40 mg 02/28/19 12:00 Solu-Medrol IV Q6HR [facility] Metoprolol Tartrate 25 mg 02/28/19 09:00 02/28/19 09:45 Lopressor PO Not Given BID [facility] Naloxone HCl 0.2 mg 02/27/19 14:42 Narcan IV Q2M PRN Opioid Reversal Ondansetron HCl 4 mg 02/27/19 14:42 Zofran IVP Q8HR PRN Nausea And Vomiting Pantoprazole Sodium 40 mg 02/28/19 09:00 12/15/19 09:52 Protonix IV 40 mg DAILY [facility] Administration Objective - Vital Signs Vital signs: Vital Signs Temp 99.7 F H 02/28/19 08:00 Pulse 74 02/28/19 12:22 Resp 36 H 02/28/19 08:00 BP 136/89 02/28/19 08:00 Pulse Ox 97 02/28/19 08:00 Intake & Output 02/27/19 02/28/19 02/28/19 18:59 06:59 18:59 Intake Total 40 Output Total 300 Balance -300 40 Weight 84.5 kg 84.5 kg Intake: Oral 40 Output: Urine 300 Other: Voiding Method Indwelling Catheter Indwelling Catheter Indwelling Catheter - Exam -GENERAL: patient is confused and could not provide information HEENT: Pupils are round and equally reacting to light. EOMI. No scleral icterus. No conjunctival pallor. Normocephalic, atraumatic. No pharyngeal erythema. No thyromegaly. CARDIOVASCULAR: S1 and S2 present. No murmurs, rubs, or gallops. -PULMONARY: Chest is clear to auscultation,decreased air entry andscattered wheezing and bilateral basal crepitation -ABDOMEN: Soft, nontender, nondistended, normoactive bowel sounds. No palpable organomegaly. Mcintosh catheter is in place MUSCULOSKELETAL: No joint swelling or deformity. -EXTREMITIES: bilateral leg edema NEUROLOGICAL: Gross neurological examination did not reveal any focal deficits. SKIN: No rashes. No petechiae - Labs CBC & Chem 7: 02/28/19 06:18 02/28/19 06:18 Labs: Abnormal Lab Results - Last 24 Hours (Table) 02/27/19 02/28/19 02/28/19 Range/Units 21:07 06:18 06:18 RBC 3.70 L (3.80-5.40) m/uL Hgb 11.1 L (11.4-16.0) gm/dL MCV 101.5 H (80.0-100.0) fL MCHC 29.6 L (31.0-37.0) g/dL Lymphocytes # 0.2 L (1.0-4.8) k/uL Potassium 5.3 H (3.5-5.1) mmol/L Chloride 97 L (98-107) mmol/L Carbon Dioxide 40 H (22-30) mmol/L BUN 25 H (7-17) mg/dL Creatinine 1.31 H (0.52-1.04) mg/dL Glucose 178 H (74-99) mg/dL POC Glucose (mg/dL) 133 H (75-99) mg/dL 02/28/19 Range/Units 06:37 RBC (3.80-5.40) m/uL Hgb (11.4-16.0) gm/dL MCV (80.0-100.0) fL MCHC (31.0-37.0) g/dL Lymphocytes # (1.0-4.8) k/uL Potassium (3.5-5.1) mmol/L Chloride (98-107) mmol/L Carbon Dioxide (22-30) mmol/L BUN (7-17) mg/dL Creatinine (0.52-1.04) mg/dL Glucose (74-99) mg/dL POC Glucose (mg/dL) 184 H (75-99) mg/dL Microbiology - Last 24 Hours (Table) 02/28/19 01:25 Urine Culture - Preliminary Urine,Catheterized Assessment and Plan Assessment: acute COPD exacerbation Respiratory acidosis metabolic and respiratory encephalopathy Nonischemic cardiomyopathy, could be related to cardiac ischemia Questionable history of lung cancer Elevated troponin diabetes mellitus Hyperlipidemia History of asthma Hypertension Osteoarthritis Plan: this is a pleasant 83 years old female who presents with CO2 narcosis and acute COPD exacerbation with UTI and elevated troponin.continue with Rocephin, continue with BiPAP, also patient on Lasix and Solu-Medrol. Consult cardiology service for elevated troponin. Consult pulmonary for respiratory problem. Labs and medication were reviewed.. Continue same treatment. Continue with symptomatic treatment. Resume home medication. Monitor lytes and vitals. DVT and GI prophylaxis. Further recommendations of the clinical course of the patient DVT prophylaxis: Subcutaneous heparin GI Prophylaxis: Pepcid Prognosis is guarded We will try to address the CODE STATUS with the family
--- NOTE | 2019-02-28 15:05 | P.CNNES ---
History of Present Illness Consult date: 02/28/19 Requesting physician: Bob Rollins Reason for Consult: acute mental status change Chief complaint: confusion History of Present Illness: Ms. Rupa Jensen is an 83-year-old female who was seen in neurologic consultation on February 28, 2019 via teleneurology. Consultation is requested for acute mental status changes. There is no family present in the room at the time of the evaluation. The patient's nurse is present. She states that the patient has been very agitated and confused. She received 3 doses of Ativan for sedation. History is obtained entirely from the chart as the patient is unable to provide any information. Patient was reportedly last seen normal at 12 PM the day prior to admission. She lives at home with her . He apparently found her sitting at the dining room table with her arms folded and head resting on her arms. She had reportedly been in that position all night long. EMS was called. At the scene they found her blood sugar to be markedly elevated. Blood pressure was low. She was hypoxic and tachypnea. She was unresponsive. Review of Systems ROS unobtainable: due to mental status (the patient is confused and sedated) Past Medical History Past Medical History: Asthma, Cancer, COPD, Diabetes Mellitus, Hyperlipidemia, Hypertension, Osteoarthritis (OA) Additional Past Medical History / Comment(s): LUNG CANCER-LEFT LUNG, PAIN IN FEET , MACULAR DEGENERATION, EDEMA IN LEG, kidney disease History of Any Multi-Drug Resistant Organisms: None Reported Past Surgical History: Appendectomy, Hernia Repair, Joint Replacement Additional Past Surgical History / Comment(s): UMBILICAL HERNIA, LEFT KNEE REPLACEMENT Past Anesthesia/Blood Transfusion Reactions: No Reported Reaction Past Psychological History: Anxiety Smoking Status: Former smoker Past Alcohol Use History: None Reported Past Drug Use History: None Reported - Past Family History Mother Family Medical History: No Reported History Additional Family Medical History / Comment(s): NO KNOWN HISTORY- ADOPTED Medications and Allergies Home Medications Medication Instructions Recorded Confirmed Type Aspirin 81 mg PO DAILY 12/23/13 09/22/18 History Atorvastatin [Lipitor] 20 mg PO DAILY 12/23/13 09/22/18 History INSULIN ASPART (NovoLOG) [NovoLOG See Protocol INJ ACHS 12/23/13 09/22/18 History (formulary)] Insulin Glargine [Lantus] 17 units SQ HS 12/23/13 09/22/18 History Multivitamins, Thera [Multivitamin 1 tab PO DAILY 12/23/13 09/22/18 History (formulary)] Lisinopril [Zestril] 5 mg PO BID #180 tablet 05/16/16 09/22/18 Rx Calcitriol 0.5 mcg PO TUTH 09/01/18 09/22/18 History Cholecalciferol [Vitamin D3 (25 1,000 unit PO DAILY 09/01/18 09/22/18 History Mcg = 1000 Iu)] Metoprolol Tartrate [Lopressor] 50 mg PO BID 09/01/18 09/22/18 History Allergies Allergy/AdvReac Type Severity Reaction Status Date / Time No Known Allergies Allergy Verified 09/22/18 17:54 Physical Examination - Vital Signs Vital Signs: Vital Signs Temp Pulse Pulse Resp BP BP Pulse Ox 02/28/19 12:30 74 02/28/19 12:22 74 02/28/19 12:00 93 16 137/84 02/28/19 08:00 99.7 F H 70 36 H 136/89 97 02/28/19 03:27 98.9 F 96 22 109/58 96 02/28/19 00:00 98.3 F 80 22 106/51 94 L 02/27/19 20:00 97.3 F L 72 20 112/55 97 02/27/19 18:58 96.2 F L 93 21 98/51 92 L 02/27/19 18:38 21 02/27/19 17:00 98.2 F 74 21 127/80 98 02/27/19 16:30 98.6 F 72 21 119/74 80 L 02/27/19 16:00 64 25 H 119/74 98 02/27/19 15:30 131 H 76 H 131/78 99 02/27/19 15:00 66 17 119/74 99 Intake and Output 02/27/19 02/28/19 02/28/19 22:59 06:59 14:59 Intake Total 40 Output Total 300 600 Balance -300 -560 Intake: Oral 40 Output: Urine 300 600 Other: Voiding Method Indwelling Catheter Indwelling Catheter Indwelling Catheter Weight 84.5 kg 84.5 kg Gen. physical examination is markedly limited secondary to patient's mental status. Patient is reclining in the bed the head of her bed is elevated slightly. She has oxygen by mask. HEENT: Head is atraumatic, normocephalic. Fundus not visualized. There is no scleral icterus. Neck: Carotid bruits cannot be auscultated secondary to the noise from the patient's BiPAP Heart: Regular rate and rhythm Extremities: Marked edema,erythema and weeping of the bilateral lower extremities. Neurological examination Mental status: Patient is obtunded. She does not open her eyes to verbal or noxious stimulation. She does localize noxious stimulation to her extremities. The patient follows no commands. She is nonverbal. Cranial nerves: Left pupil 2-3 mm. Right pupil 1.5-2 mm. Both are reactive. Corneal reflexes are intact. There is no obvious facial asymmetry, however this is difficult to assess secondary to patient's oxygen mask. Motor: Patient does withdraw her extremities from noxious stimulation. Deep tendon reflexes: 2+/4+ throughout. Results - Laboratory Findings CBC and BMP: 02/28/19 06:18 02/28/19 06:18 Abnormal Lab Findings: Abnormal Labs 02/27/19 02/27/19 02/27/19 10:55 10:57 10:57 RBC Hgb MCV 103.1 H MCHC 30.1 L Lymphocytes # 0.5 L VBG pH VBG pCO2 VBG HCO3 Potassium 5.6 H Chloride 96 L Carbon Dioxide 36 H BUN 24 H Creatinine 1.31 H Glucose 240 H POC Glucose (mg/dL) 225 H Magnesium 2.6 H Ammonia Troponin I Urine Appearance Urine Protein Urine Blood Urine Bilirubin Ur Leukocyte Esterase Urine RBC Urine WBC Urine WBC Clumps Ur Squamous Epith Cells Urine Bacteria Hyaline Casts Urine Mucus Urine Yeast (Budding) 02/27/19 02/27/19 02/27/19 10:57 10:57 10:57 RBC Hgb MCV MCHC Lymphocytes # VBG pH 7.23 L VBG pCO2 92 H* VBG HCO3 37 H Potassium Chloride Carbon Dioxide BUN Creatinine Glucose POC Glucose (mg/dL) Magnesium Ammonia 41 H Troponin I 0.038 H* Urine Appearance Urine Protein Urine Blood Urine Bilirubin Ur Leukocyte Esterase Urine RBC Urine WBC Urine WBC Clumps Ur Squamous Epith Cells Urine Bacteria Hyaline Casts Urine Mucus Urine Yeast (Budding) 02/27/19 02/27/19 02/28/19 10:57 21:07 06:18 RBC Hgb MCV MCHC Lymphocytes # VBG pH VBG pCO2 VBG HCO3 Potassium 5.3 H Chloride 97 L Carbon Dioxide 40 H BUN 25 H Creatinine 1.31 H Glucose 178 H POC Glucose (mg/dL) 133 H Magnesium Ammonia Troponin I Urine Appearance Turbid H Urine Protein 2+ H Urine Blood Trace H Urine Bilirubin 1+ H Ur Leukocyte Esterase Large H Urine RBC 6 H Urine WBC 120 H Urine WBC Clumps Many H Ur Squamous Epith Cells 6 H Urine Bacteria Many H Hyaline Casts 7 H Urine Mucus Rare H Urine Yeast (Budding) Rare H 02/28/19 02/28/19 02/28/19 06:18 06:37 12:11 RBC 3.70 L Hgb 11.1 L MCV 101.5 H MCHC 29.6 L Lymphocytes # 0.2 L VBG pH VBG pCO2 VBG HCO3 Potassium Chloride Carbon Dioxide BUN Creatinine Glucose POC Glucose (mg/dL) 184 H 243 H Magnesium Ammonia Troponin I Urine Appearance Urine Protein Urine Blood Urine Bilirubin Ur Leukocyte Esterase Urine RBC Urine WBC Urine WBC Clumps Ur Squamous Epith Cells Urine Bacteria Hyaline Casts Urine Mucus Urine Yeast (Budding) Assessment and Plan Assessment: Impressions: 1. Toxic-metabolic encephalopathy 2. History of COPD 3. Reported history of polio as a child Plan: Recommendations: 1. Your medical care Time with Patient: Greater than 30
[2019-02-28 17:08] LABS: Glucose,Whole Blood 220 mg/dL (75-99)
[2019-02-28] MEDS: SODIUM CHLORIDE 0.9% 1,000 ML IV SCH (17:27)
[2019-02-28] MEDS: BUDESONIDE 1 MG/2 ML NEBU INHALATION SCH (19:03)
[2019-02-28] MEDS: FORMOTEROL FUMARATE 20 MCG/2 ML NEBU INHALATION SCH (19:03)
[2019-02-28 21:19] LABS: Glucose,Whole Blood 245 mg/dL (75-99)
[2019-03-01 05:49] LABS: Basophils % (A) 0 %; Eosinophils % (A) 0 %; HCT 36.8 % (34.0-46.0); Hypochromasia Moderate; Lymphocytes # (A) 0.3 k/uL (1.0-4.8); Lymphocytes % (A) 6 %; MCH 30.2 pg (25.0-35.0); MCV 100.8 fL (80.0-100.0); Macrocytosis Slight; Mean Platelet Volume 7.7; Monocytes # (A) 0.2 k/uL (0-1.0); Monocytes % (A) 5 %; Neutrophils # (A) 4.7 k/uL (1.3-7.7); Neutrophils % (A) 89 %; Platelet Count 182 k/uL (150-450); RBC 3.65 m/uL (3.80-5.40); RDW 13.6 % (11.5-15.5); WBC 5.3 k/uL (3.8-10.6)
[2019-03-01 06:02] LABS: Calcium 8.7 mg/dL (8.4-10.2); Potassium 4.5 mmol/L (3.5-5.1)
[2019-03-01] MEDS: methylPREDNISolone SOD SUCCI 40 MG/ML 1 ML VIAL IV SCH ×4 (06:02→23:24)
[2019-03-01 06:06] LABS: Glucose,Whole Blood 170 mg/dL (75-99)
[2019-03-01] MEDS: INSULIN ASPART (NovoLOG) 100 UNIT/ML VIAL SQ SCH ×4 (06:06→20:59)
[2019-03-01] MEDS: PANTOPRAZOLE 40 MG TABLET PO SCH (06:11)
[2019-03-01 07:04] LABS: ABG Base Excess 18.2 mmol/L; ABG PH 7.36 (7.35-7.45); ABG PO2 100 mmHg (83-108); ABG TCO2 46 mmol/L (19-24); Allen Test Performed? Yes
[2019-03-01 07:08] LABS: ABG PCO2 78 mmHg (35-45)
[2019-03-01 07:09] LABS: ABG HCO3 44 mmol/L (21-25)
[2019-03-01] MEDS: IPRATROPIUM-ALBUTEROL 3 ML NEB INHALATION SCH ×4 (07:22→19:54)
[2019-03-01] MEDS: BUDESONIDE 1 MG/2 ML NEBU INHALATION SCH ×2 (07:22→19:54)
[2019-03-01] MEDS: FORMOTEROL FUMARATE 20 MCG/2 ML NEBU INHALATION SCH ×2 (07:22→20:11)
[2019-03-01] MEDS: ASPIRIN 81 MG PO SCH (08:03)
[2019-03-01] MEDS: HEPARIN SODIUM,PORCINE 5,000 UNIT/ML 1 ML VIAL SQ SCH ×3 (08:03→23:24)
[2019-03-01] MEDS: ATORVASTATIN 20 MG TAB PO SCH (08:03)
[2019-03-01] MEDS: FUROSEMIDE 10 MG/ML 4 ML VIAL IV SCH (08:03)
[2019-03-01] MEDS: METOPROLOL TARTRATE 25 MG TAB PO SCH ×2 (08:03→19:39)
[2019-03-01] MEDS: LISINOPRIL 5 MG TAB PO SCH ×2 (08:03→19:39)
--- NOTE | 2019-03-01 08:03 | P.PN ---
Subjective Progress Note Date: 03/01/19 Principal diagnosis: altered mental status. The patient is here essentially for altered mental status and electrolyte abnormalities. Appreciate cardiology and neurology input. The patient is still quite disoriented this morning. The patient has minimal complaints however. Sh rashad seems to be tolerating diet appropriately. Objective - Vital Signs Vital signs: Vital Signs Temp 98.6 F 03/01/19 04:00 Pulse 101 H 03/01/19 07:46 Resp 18 03/01/19 04:00 BP 129/70 03/01/19 04:00 Pulse Ox 100 03/01/19 04:00 Intake & Output 02/28/19 03/01/19 03/01/19 18:59 06:59 18:59 Intake Total 40 Output Total 600 550 Balance -560 -550 Weight 84.5 kg 82 kg Intake: Oral 40 Output: Urine 600 550 Other: Voiding Method Indwelling Catheter Indwelling Catheter - Constitutional General appearance: Present: average body habitus - EENT Eyes: Absent: abnormal pupil - Neck Neck: Absent: lymphadenopathy - Respiratory Respiratory: bilateral: CTA - Cardiovascular Rhythm: regular Heart sounds: normal: S1, S2 Abnormal Heart Sounds: Absent: S3 Gallop - Gastrointestinal General gastrointestinal: Present: soft. Absent: tenderness - Integumentary Integumentary: Absent: cellulitis - Labs CBC & Chem 7: 03/01/19 05:06 03/01/19 05:06 Labs: Abnormal Lab Results - Last 24 Hours (Table) 02/28/19 02/28/19 02/28/19 Range/Units 12:11 16:57 20:59 RBC (3.80-5.40) m/uL Hgb (11.4-16.0) gm/dL MCV (80.0-100.0) fL MCHC (31.0-37.0) g/dL Lymphocytes # (1.0-4.8) k/uL ABG pCO2 (35-45) mmHg ABG HCO3 (21-25) mmol/L ABG Total CO2 (19-24) mmol/L ABG O2 Saturation (94-97) % Chloride (98-107) mmol/L Carbon Dioxide (22-30) mmol/L BUN (7-17) mg/dL Creatinine (0.52-1.04) mg/dL Glucose (74-99) mg/dL POC Glucose (mg/dL) 243 H 220 H 245 H (75-99) mg/dL 03/01/19 03/01/19 03/01/19 Range/Units 05:06 05:06 06:03 RBC 3.65 L (3.80-5.40) m/uL Hgb 11.0 L (11.4-16.0) gm/dL MCV 100.8 H (80.0-100.0) fL MCHC 30.0 L (31.0-37.0) g/dL Lymphocytes # 0.3 L (1.0-4.8) k/uL ABG pCO2 (35-45) mmHg ABG HCO3 (21-25) mmol/L ABG Total CO2 (19-24) mmol/L ABG O2 Saturation (94-97) % Chloride 95 L (98-107) mmol/L Carbon Dioxide 44 H* (22-30) mmol/L BUN 37 H (7-17) mg/dL Creatinine 1.70 H (0.52-1.04) mg/dL Glucose 159 H (74-99) mg/dL POC Glucose (mg/dL) 170 H (75-99) mg/dL 03/01/19 Range/Units 07:00 RBC (3.80-5.40) m/uL Hgb (11.4-16.0) gm/dL MCV (80.0-100.0) fL MCHC (31.0-37.0) g/dL Lymphocytes # (1.0-4.8) k/uL ABG pCO2 78 H* (35-45) mmHg ABG HCO3 44 H* (21-25) mmol/L ABG Total CO2 46 H (19-24) mmol/L ABG O2 Saturation 98.0 H (94-97) % Chloride (98-107) mmol/L Carbon Dioxide (22-30) mmol/L BUN (7-17) mg/dL Creatinine (0.52-1.04) mg/dL Glucose (74-99) mg/dL POC Glucose (mg/dL) (75-99) mg/dL Microbiology - Last 24 Hours (Table) 02/27/19 16:37 Blood Culture - Preliminary Blood No Growth after 24 hours 02/28/19 01:25 Urine Culture - Preliminary Urine,Catheterized Assessment and Plan (1) Altered mental status Current Visit: Yes Status: Acute Code(s): R41.82 - ALTERED MENTAL STATUS, UNSPECIFIED SNOMED Code(s): 130318806 (2) Respiratory failure with hypoxia Current Visit: Yes Status: Acute Code(s): J96.91 - RESPIRATORY FAILURE, UNSPECIFIED WITH HYPOXIA SNOMED Code(s): 83230363384640603 (3) At risk for readmission to hospital Current Visit: No Status: Acute Code(s): Z91.89 - OTH PERSONAL RISK FACTORS, NOT ELSEWHERE CLASSIFIED SNOMED Code(s): 8565107239487 (4) Elevated troponin Current Visit: No Status: Acute Code(s): R74.8 - ABNORMAL LEVELS OF OTHER SERUM ENZYMES SNOMED Code(s): 537674751 (5) Hyperkalemia Current Visit: No Status: Acute Code(s): E87.5 - HYPERKALEMIA SNOMED Code(s): 18300521 Plan: We'll continue to follow. Element of discharge planning. Check CBC and CMP in a.m. Time with Patient: Less than 30
--- NOTE | 2019-03-01 11:31 | P.PN ---
Subjective Progress Note Date: 03/01/19 83-year-old female patient came in for altered mentation with with CO2 narcosis. The patient's chronic hypoxic and hypercapnic respiratory failure. She has advanced COPD. She also has history of cancer that was treated through [facility] and she received a combination of chemoradiation therapy. Since then the patient has not had any significant or active follow-up. The patient came in with hypercapnic respiratory failure with a pH of 7.2 and a pCO2 of 92. She was placed on a BiPAP machine and I realized today that she is on a AVAPS mode on the BiPAP with a target tidal volume of 350. Earlier this morning, the patient had woken up. She is communicating. She is still confused . She looks quite lethargic although more awake compared to yesterday. The repeat blood gases from today showed some improvement in her CO2 and her current pH is at 7.36 with a pCO2 of 78 and pO2 of 100 and this was done on an FiO2 of liters high flow. She does have some chronic lower extremity edema in addition. She has underlying with CAD. The chest x-ray that was done at the time of admission showed cardiomegaly and bilateral pleural effusion and pulmonary vascular congestion. Ultrasound the chest shows small pockets of fluid on the right measuring 1 that she is on DuoNeb the right seems [id number]. She is on a combination of Perforomist and Pulmicort nebulized treatments, she is on IV Lasix 40 mg every 12 hours and she is also on IV Solu-Medrol 40 mg every 6 hours. She was given IV Rocephin for a suspected UTI. Objective - Vital Signs Vital signs: Vital Signs Temp 98.6 F 03/01/19 04:00 Pulse 109 H 03/01/19 08:00 Resp 22 03/01/19 08:00 BP 132/76 03/01/19 08:00 Pulse Ox 98 03/01/19 08:00 Intake & Output 02/28/19 03/01/19 03/01/19 18:59 06:59 18:59 Intake Total 40 240 Output Total 600 550 Balance -560 -550 240 Weight 84.5 kg 82 kg Intake: Oral 40 240 Output: Urine 600 550 Other: Voiding Method Indwelling Catheter Indwelling Catheter Indwelling Catheter - Exam the patient is lethargic, slow in answering questions at times confused currently on 5 L about 2 by nasal cannula Head exam was generally normal. There was no scleral icterus or corneal arcus. Mucous membranes were moist. Neck was supple and without jugular venous distension, thyromegaly, or carotid bruits. Carotids were easily palpable bilaterally. There was no adenopathy. Lungs sounds are markedly diminished bilaterally. Air entry is significantly diminished and the patient is crackles in the lung bases and there is diminished breath on the right lung base along with some dullness to percussion. Cardiac exam revealed the PMI to be normally situated and sized. The rhythm was regular and no extrasystoles were noted during several minutes of auscultation. The first and second heart sounds were normal and physiologic splitting of the second heart sound was noted. There were no murmurs, rubs, clicks, or gallops. Abdominal exam revealed normal bowel sounds. The abdomen was soft, non-tender, and without masses, organomegaly, or appreciable enlargement of the abdominal aorta. Extremities are showing diminished pulses. There is chronic erythema in lower extremities bilaterally below the knees and the patient has trace edema lower extremity is bilaterally. No cyanosis. No clubbing. Neurologically the patient is arousable. She can hold few words conversation. She will go 4 extremities. No facial asymmetry. Pupils are equal and reactive to light - Labs CBC & Chem 7: 03/01/19 05:06 03/01/19 05:06 Labs: Abnormal Lab Results - Last 24 Hours (Table) 02/28/19 02/28/19 02/28/19 Range/Units 12:11 16:57 20:59 RBC (3.80-5.40) m/uL Hgb (11.4-16.0) gm/dL MCV (80.0-100.0) fL MCHC (31.0-37.0) g/dL Lymphocytes # (1.0-4.8) k/uL ABG pCO2 (35-45) mmHg ABG HCO3 (21-25) mmol/L ABG Total CO2 (19-24) mmol/L ABG O2 Saturation (94-97) % Chloride (98-107) mmol/L Carbon Dioxide (22-30) mmol/L BUN (7-17) mg/dL Creatinine (0.52-1.04) mg/dL Glucose (74-99) mg/dL POC Glucose (mg/dL) 243 H 220 H 245 H (75-99) mg/dL 03/01/19 03/01/19 03/01/19 Range/Units 05:06 05:06 06:03 RBC 3.65 L (3.80-5.40) m/uL Hgb 11.0 L (11.4-16.0) gm/dL MCV 100.8 H (80.0-100.0) fL MCHC 30.0 L (31.0-37.0) g/dL Lymphocytes # 0.3 L (1.0-4.8) k/uL ABG pCO2 (35-45) mmHg ABG HCO3 (21-25) mmol/L ABG Total CO2 (19-24) mmol/L ABG O2 Saturation (94-97) % Chloride 95 L (98-107) mmol/L Carbon Dioxide 44 H* (22-30) mmol/L BUN 37 H (7-17) mg/dL Creatinine 1.70 H (0.52-1.04) mg/dL Glucose 159 H (74-99) mg/dL POC Glucose (mg/dL) 170 H (75-99) mg/dL 03/01/19 Range/Units 07:00 RBC (3.80-5.40) m/uL Hgb (11.4-16.0) gm/dL MCV (80.0-100.0) fL MCHC (31.0-37.0) g/dL Lymphocytes # (1.0-4.8) k/uL ABG pCO2 78 H* (35-45) mmHg ABG HCO3 44 H* (21-25) mmol/L ABG Total CO2 46 H (19-24) mmol/L ABG O2 Saturation 98.0 H (94-97) % Chloride (98-107) mmol/L Carbon Dioxide (22-30) mmol/L BUN (7-17) mg/dL Creatinine (0.52-1.04) mg/dL Glucose (74-99) mg/dL POC Glucose (mg/dL) (75-99) mg/dL Microbiology - Last 24 Hours (Table) 02/27/19 16:37 Blood Culture - Preliminary Blood No Growth after 24 hours 02/28/19 01:25 Urine Culture - Preliminary Urine,Catheterized Assessment and Plan Plan: 1 altered mental status secondary to hypercapnic respiratory failure/CO2 narcosis. CT angiogram of the brain that was done showed no acute abnormalities and there are no signs of acute CVA 2 chronic hypoxic respiratory failure 3 chronic hypercapnic respiratory failure 4 acute on chronic hypercapnic respiratory failure with CO2 narcosis 5 history of lung cancer with previous chemoradiation therapy 6 advanced COPD with chronic hypoxic respiratory failure 7 right-sided pleural effusion 8 chronic smoking 9 diabetes mellitus 7 hyperlipidemia 11 hypertension 12 macular degeneration 13 right lower extremity edema 14 impaired performance and functional status secondary to above-mentioned comorbidities. 15 acute kidney injury review to contrast and diuretics Plan Keep the patient on noninvasive positive pressure ventilation. Discontinue AAVAPS and put that on regular BiPAP at a pressure of 14/6 degenerative tidal volume of 350 mL Continue bronchodilators Continue steroids CAT scan of the chest chest Possible right-sided thoracentesis We'll continue to follow. Prognosis poor. CODE STATUS needs to be reevaluated and addressed Lasix to 40 mg once a day Monitor renal function
[2019-03-01 12:00] LABS: Glucose,Whole Blood 337 mg/dL (75-99)
[2019-03-01] MEDS: SODIUM CHLORIDE 0.9% 1,000 ML IV SCH (12:34)
--- NOTE | 2019-03-01 13:40 | CT ---
EXAMINATION TYPE: CT chest wo con DATE OF EXAM: 03/01/2019 COMPARISON: 05/19/17 HISTORY: Pleural Effusion CT DLP: [address] of the chest was performed with lung and mediastinal window settings submitted. The la ck of contrast limits evaluation of the vascular, mediastinal and parenchymal structures including th e upper abdomen. LUNGS: Moderate right-sided pleural effusion extends to the right lung apex demonstrates a maximal AP dimension of 4 cm. There is a smaller left-sided pleural effusion with maximal AP measurement of 2 c m. There is compressive atelectasis noted at the lung bases and/or infiltrates. There is a suggestion of pulmonary venous congestion. Priestly noted spiculated left upper lobe pulmonary nodule is not id entified at this time. Correlate patient's surgical history. No additional nodules are seen within th e aerated portions of the lungs. MEDIASTINUM/LUIS MIGUEL: Atheromatous and ectatic change of the thoracic aorta without evidence for aneurysm . The heart is at least moderately enlarged. No evidence for mediastinal mass. No lymph nodes great er than 1cm. UPPER ABDOMEN: Sludge is noted within the gallbladder lumen. OTHER: No significant other abnormality. IMPRESSION: 1. Bilateral pleural effusions right greater than left with probable underlying atelectasis and/or i nfiltrate. 2. Cardiomegaly with pulmonary venous congestion and no definite overt failure at this time. 3. Spiculated pulmonary nodule left upper lobe seen previously is not reproduced on today's study and may have been removed surgically. Correlate patient's surgical history.
[2019-03-01 17:06] LABS: Glucose,Whole Blood 326 mg/dL (75-99)
[2019-03-01] MEDS: LORazepam 2 MG/ML INJ IV PRN (19:43)
[2019-03-01 21:23] LABS: Glucose,Whole Blood 269 mg/dL (75-99)
[2019-03-02] MEDS: LORazepam 2 MG/ML INJ IV PRN ×3 (04:03→22:35)
[2019-03-02 06:06] LABS: Glucose,Whole Blood 257 mg/dL (75-99)
[2019-03-02] MEDS: methylPREDNISolone SOD SUCCI 40 MG/ML 1 ML VIAL IV SCH ×4 (06:19→21:20)
[2019-03-02] MEDS: INSULIN ASPART (NovoLOG) 100 UNIT/ML VIAL SQ SCH ×3 (06:20→17:28)
[2019-03-02 06:37] LABS: Basophils % (A) 0 %; Eosinophils % (A) 0 %; HCT 33.6 % (34.0-46.0); HGB 10.1 gm/dL (11.4-16.0); Hypochromasia Marked; Lymphocytes # (A) 0.2 k/uL (1.0-4.8); Lymphocytes % (A) 3 %; MCH 30.7 pg (25.0-35.0); MCHC 30.2 g/dL (31.0-37.0); MCV 101.6 fL (80.0-100.0); Macrocytosis Slight; Monocytes # (A) 0.2 k/uL (0-1.0); Monocytes % (A) 4 %; Neutrophils # (A) 5.8 k/uL (1.3-7.7); Neutrophils % (A) 92 %; Platelet Count 149 k/uL (150-450); RBC 3.31 m/uL (3.80-5.40); RDW 13.5 % (11.5-15.5); WBC 6.3 k/uL (3.8-10.6)
[2019-03-02 06:51] LABS: Albumin 2.8 g/dL (3.5-5.0); Calcium 8.3 mg/dL (8.4-10.2); Potassium 4.4 mmol/L (3.5-5.1); Total Bilirubin 0.6 mg/dL (0.2-1.3); Total Protein 5.1 g/dL (6.3-8.2)
[2019-03-02] MEDS: ASPIRIN 81 MG PO SCH (08:19)
[2019-03-02] MEDS: METOPROLOL TARTRATE 25 MG TAB PO SCH ×2 (08:19→21:20)
[2019-03-02] MEDS: LISINOPRIL 5 MG TAB PO SCH ×2 (08:19→21:20)
[2019-03-02] MEDS: ATORVASTATIN 20 MG TAB PO SCH (08:19)
[2019-03-02] MEDS: PANTOPRAZOLE 40 MG TABLET PO SCH (08:19)
[2019-03-02] MEDS: FUROSEMIDE 10 MG/ML 4 ML VIAL IV SCH (08:20)
[2019-03-02] MEDS: HEPARIN SODIUM,PORCINE 5,000 UNIT/ML 1 ML VIAL SQ SCH ×3 (08:20→21:20)
[2019-03-02] MEDS: FORMOTEROL FUMARATE 20 MCG/2 ML NEBU INHALATION SCH ×2 (10:10→20:29)
[2019-03-02] MEDS: IPRATROPIUM-ALBUTEROL 3 ML NEB INHALATION SCH ×4 (10:10→20:29)
[2019-03-02] MEDS: BUDESONIDE 1 MG/2 ML NEBU INHALATION SCH ×2 (10:10→20:29)
--- NOTE | 2019-03-02 11:33 | P.PN ---
Subjective Progress Note Date: 03/02/19 83-year-old female patient came in for altered mentation with with CO2 narcosis. The patient's chronic hypoxic and hypercapnic respiratory failure. She has advanced COPD. She also has history of lung cancer that was treated through [facility] and she received a combination of chemoradiation therapy. Since then the patient has not had any significant or active follow- up. The patient came in with hypercapnic respiratory failure with a pH of 7.2 and a pCO2 of 92. She was placed on a BiPAP machine and I realized today that she is on a AVAPS mode on the BiPAP with a target tidal volume of 350. Earlier this morning, the patient had woken up. She is communicating. She is still con fused. She looks quite lethargic although more awake compared to yesterday. The repeat blood gases from today showed some improvement in her CO2 and her current pH is at 7.36 with a pCO2 of 78 and pO2 of 100 and this was done on an FiO2 of liters high flow. She does have some chronic lower extremity edema in addition. She has underlying with CAD. The chest x-ray that was done at the time of admission showed cardiomegaly and bilateral pleural effusion and pulmonary vascular congestion. Ultrasound the chest shows small pockets of fluid on the right , she is on DuoNeb the right seems [id number]. She is on a combination of Perforomist and Pulmicort nebulized treatments, she is on IV Lasix 40 mg every 12 hours and she is also on IV Solu-Medrol 40 mg every 6 hours. She was given IV Rocephin for a suspected UTI. On 03/02/2019 the patient is feeling slightly better compared to yesterday. She is off the BiPAP on 4 L of oxygen by nasal cannula. She is more alert and she is communicating and she was able to sit up on a chair at the bedside. Her edema lower extremities improved. She has a Mcintosh catheter in place and she is producing adequate amount of urine output while being on IV Lasix 40 mg every 24 hours. Creatinine stable at 1.5. She is on DuoNeb nebulized treatments [id number]. She remains on IV Solu-Medrol. She is on a combination of Perforomist and Pulmicort neb last treatment twice a day in addition to DuoNeb nebulized treatments around the clock. She is also on IV Rocephin. The blood gases from yesterday showed chronic compensated respiratory acidosis. Her white cell count is at 6.3. Serum bicarb is at 43 and creatinine is at 1.5. Objective - Vital Signs Vital signs: Vital Signs Temp 97.9 F 03/02/19 08:30 Pulse 100 03/02/19 10:21 Resp 19 03/02/19 08:30 BP 141/62 03/02/19 08:30 Pulse Ox 97 03/02/19 08:30 Intake & Output 03/01/19 03/02/19 03/02/19 18:59 06:59 18:59 Intake Total 790 240 Output Total 975 600 Balance -185 -600 240 Weight 81 kg Intake: Intake, IV Titration 190 Amount Sodium Chloride 0.9% 1, 140 000 ml @ 20 mls/hr IV . Q24H [facility] Rx#:[id number] cefTRIAXone 1 gm In 50 Sodium Chloride 0.9% 50 ml @ 100 mls/hr IVPB Q24H [facility] Rx#:[id number] Oral 600 240 Output: Urine 975 600 Other: Voiding Method Indwelling Catheter Indwelling Catheter Indwelling Catheter - Exam the patient is lethargic, slow in answering questions in the mental status improved compared to yesterday. She is on 4 L per minute nasal cannula. Head exam was generally normal. There was no scleral icterus or corneal arcus. Mucous membranes were moist. Neck was supple and without jugular venous distension, thyromegaly, or carotid bruits. Carotids were easily palpable bilaterally. There was no adenopathy. Lungs sounds are markedly diminished bilaterally. Air entry is significantly diminished and the patient is crackles in the lung bases and there is diminished breath on the right lung base along with some dullness to percussion. Cardiac exam revealed the PMI to be normally situated and sized. The rhythm was regular and no extrasystoles were noted during several minutes of auscultation. The first and second heart sounds were normal and physiologic splitting of the second heart sound was noted. There were no murmurs, rubs, clicks, or gallops. Abdominal exam revealed normal bowel sounds. The abdomen was soft, non-tender, and without masses, organomegaly, or appreciable enlargement of the abdominal aorta. Extremities are showing diminished pulses. There is chronic erythema in lower extremities bilaterally below the knees and the patient has trace edema lower extremity is bilaterally. No cyanosis. No clubbing.there is some improvement in lower extremity edema compared to yesterday. Neurologically the patient is arousable. She can hold few words conversation. She will go 4 extremities. No facial asymmetry. Pupils are equal and reactive to lightI would say she is much more alert compared to yesterday. - Labs CBC & Chem 7: 03/02/19 05:50 03/02/19 05:50 Labs: Abnormal Lab Results - Last 24 Hours (Table) 03/01/19 03/01/19 03/01/19 Range/Units 11:40 16:52 20:57 RBC (3.80-5.40) m/uL Hgb (11.4-16.0) gm/dL Hct (34.0-46.0) % MCV (80.0-100.0) fL MCHC (31.0-37.0) g/dL Plt Count (150-450) k/uL Lymphocytes # (1.0-4.8) k/uL Chloride (98-107) mmol/L Carbon Dioxide (22-30) mmol/L BUN (7-17) mg/dL Creatinine (0.52-1.04) mg/dL Glucose (74-99) mg/dL POC Glucose (mg/dL) 337 H 326 H 269 H (75-99) mg/dL Calcium (8.4-10.2) mg/dL Total Protein (6.3-8.2) g/dL Albumin (3.5-5.0) g/dL 03/02/19 03/02/19 03/02/19 Range/Units 05:50 05:50 06:03 RBC 3.31 L (3.80-5.40) m/uL Hgb 10.1 L (11.4-16.0) gm/dL Hct 33.6 L (34.0-46.0) % MCV 101.6 H (80.0-100.0) fL MCHC 30.2 L (31.0-37.0) g/dL Plt Count 149 L (150-450) k/uL Lymphocytes # 0.2 L (1.0-4.8) k/uL Chloride 96 L (98-107) mmol/L Carbon Dioxide 43 H* (22-30) mmol/L BUN 54 H (7-17) mg/dL Creatinine 1.54 H (0.52-1.04) mg/dL Glucose 241 H (74-99) mg/dL POC Glucose (mg/dL) 257 H (75-99) mg/dL Calcium 8.3 L (8.4-10.2) mg/dL Total Protein 5.1 L (6.3-8.2) g/dL Albumin 2.8 L (3.5-5.0) g/dL Microbiology - Last 24 Hours (Table) 02/27/19 16:37 Blood Culture - Preliminary Blood No Growth after 48 hours 02/28/19 01:25 Urine Culture - Final Urine,Catheterized Assessment and Plan Plan: 1 altered mental status secondary to hypercapnic respiratory failure/CO2 narc osis. CT angiogram of the brain that was done showed no acute abnormalities and there are no signs of acute CVA 2 chronic hypoxic respiratory failure 3 chronic hypercapnic respiratory failure 4 acute on chronic hypercapnic respiratory failure with CO2 narcosis 5 history of lung cancer with previous chemoradiation therapy, follow-up CAT scan of the chest showed bilateral pleural effusions right more than left and that is no evidence of any spiculated lesion that was seen in the left upper lo be. 6 advanced COPD with chronic hypoxic respiratory failure 7 right-sided pleural effusion 8 chronic smoking 9 diabetes mellitus 7 hyperlipidemia 11 hypertension 12 macular degeneration 13 right lower extremity edema 14 impaired performance and functional status secondary to above-mentioned comorbidities. 15 acute kidney injury review to contrast and diuretics Plan clinicallyimproved Developing some metabolic alkalosis along with diuresis. We'll do a blood gas and decide if the patient would benefit from Diamox Continue IV Lasix 40 mg once a day Obtain a blood gas continue Solu-Medrol Continue bronchodilators BiPAP overnight and on and off during the day 4 L of oxygen by nasal cannula CAT scan of the chest was reviewed and there is bilateral pleural effusion right more than left. Consider a thoracentesis if no improvement. DNR/DNI CODE STATUS
[2019-03-02 12:07] LABS: Glucose,Whole Blood 258 mg/dL (75-99)
[2019-03-02 12:24] LABS: ABG Base Excess 22.8 mmol/L; ABG Oxygen Saturation 93.9 % (94-97); ABG PH 7.38 (7.35-7.45); ABG PO2 72 mmHg (83-108); ABG TCO2 51 mmol/L (19-24); Allen Test Performed? Yes
[2019-03-02 12:28] LABS: ABG HCO3 48 mmol/L (21-25); ABG PCO2 82 mmHg (35-45)
[2019-03-02] MEDS ORDERED: INSULIN ASPART (NovoLOG) 100 UNIT/ML VIAL SQ ONE (13:43)
[2019-03-02] MEDS: SODIUM CHLORIDE 0.9% 1,000 ML IV SCH (16:46)
[2019-03-02 17:09] LABS: Glucose,Whole Blood 324 mg/dL (75-99)
[2019-03-02] MEDS: INSULIN REGULAR 100 UNIT in SODIUM CHLORIDE 0.9% 100 ML IV SCH (18:05)
[2019-03-02 18:53] LABS: Glucose,Whole Blood 274 mg/dL (75-99)
[2019-03-02 19:37] LABS: Glucose,Whole Blood 241 mg/dL (75-99)
[2019-03-02 20:10] LABS: Glucose,Whole Blood 187 mg/dL (75-99)
[2019-03-02 20:39] LABS: Glucose,Whole Blood 195 mg/dL (75-99)
[2019-03-02 22:30] LABS: Glucose,Whole Blood 114 mg/dL (75-99)
[2019-03-03 01:49] LABS: Glucose,Whole Blood 154 mg/dL (75-99)
[2019-03-03 02:31] LABS: Glucose,Whole Blood 162 mg/dL (75-99)
[2019-03-03 04:50] LABS: Glucose,Whole Blood 180 mg/dL (75-99)
[2019-03-03] MEDS: methylPREDNISolone SOD SUCCI 40 MG/ML 1 ML VIAL IV SCH ×3 (06:05→17:58)
[2019-03-03] MEDS: PANTOPRAZOLE 40 MG TABLET PO SCH (06:06)
[2019-03-03] MEDS: INSULIN ASPART (NovoLOG) 100 UNIT/ML VIAL SQ SCH ×3 (06:25→17:53)
[2019-03-03 06:33] LABS: Glucose,Whole Blood 218 mg/dL (75-99)
[2019-03-03] MEDS ORDERED: INSULIN ASPART (NovoLOG) 100 UNIT/ML VIAL SQ SCH (07:30)
[2019-03-03] MEDS: IPRATROPIUM-ALBUTEROL 3 ML NEB INHALATION SCH ×4 (08:05→20:57)
[2019-03-03] MEDS: FORMOTEROL FUMARATE 20 MCG/2 ML NEBU INHALATION SCH ×2 (08:05→20:57)
[2019-03-03] MEDS: BUDESONIDE 1 MG/2 ML NEBU INHALATION SCH ×2 (08:05→20:57)
[2019-03-03 08:29] LABS: Glucose,Whole Blood 193 mg/dL (75-99)
--- NOTE | 2019-03-03 08:31 | P.PN ---
Subjective Principal diagnosis: altered mental status. The patient is here essentially for altered mental status and electrolyte abnormalities. Appreciate cardiology and neurology input. The patient is still quite disoriented this morning. The patient has minimal complaints however. She seems to be tolerating diet appropriately.she seems much weaker today however. Objective - Vital Signs Vital signs: Vital Signs Temp 98.1 F 03/03/19 04:00 Pulse 80 03/03/19 04:00 Resp 20 03/03/19 04:00 BP 136/63 03/03/19 04:00 Pulse Ox 95 03/03/19 04:00 Intake & Output 03/02/19 03/03/19 03/03/19 18:59 06:59 18:59 Intake Total 493.6 30.351 Output Total 1500 600 Balance -1006.4 -569.649 Weight 81 kg 80.5 kg Intake: Intake, IV Titration 13.6 30.351 Amount Insulin Regular 100 unit 13.6 30.351 In Sodium Chloride 0.9% 100 ml @ Titrate IV .Q0M COUNT [facility]CLUD[facility] Rx#:[id number] Oral 480 0 Output: Urine 1500 600 Uretheral (Mcintosh) 450 Other: Voiding Method Indwelling Catheter Indwelling Catheter - Constitutional General appearance: Present: no acute distress - EENT Eyes: Absent: abnormal pupil - Neck Neck: Absent: lymphadenopathy - Respiratory Respiratory: bilateral: CTA - Cardiovascular Rhythm: regular Heart sounds: normal: S1, S2 Abnormal Heart Sounds: Absent: S3 Gallop - Gastrointestinal General gastrointestinal: Present: soft. Absent: tenderness - Neurologic Neurologic: Present: CNII-XII intact - Labs CBC & Chem 7: 03/02/19 05:50 03/02/19 05:50 Labs: Abnormal Lab Results - Last 24 Hours (Table) 03/02/19 03/02/19 03/02/19 Range/Units 12:06 :19 17:07 ABG pCO2 82 H* (35-45) mmHg ABG pO2 72 L (83-108) mmHg ABG HCO3 48 H* (21-25) mmol/L ABG Total CO2 51 H (19-24) mmol/L ABG O2 Saturation 93.9 L (94-97) % POC Glucose (mg/dL) 258 H 324 H (75-99) mg/dL 03/02/19 03/02/19 03/02/19 Range/Units 18:50 19:36 20:08 ABG pCO2 (35-45) mmHg ABG pO2 (83-108) mmHg ABG HCO3 (21-25) mmol/L ABG Total CO2 (19-24) mmol/L ABG O2 Saturation (94-97) % POC Glucose (mg/dL) 274 H 241 H 187 H (75-99) mg/dL 03/02/19 03/02/19 03/03/19 Range/Units 20:38 22:28 01:47 ABG pCO2 (35-45) mmHg ABG pO2 (83-108) mmHg ABG HCO3 (21-25) mmol/L ABG Total CO2 (19-24) mmol/L ABG O2 Saturation (94-97) % POC Glucose (mg/dL) 195 H 114 H 154 H (75-99) mg/dL 03/03/19 03/03/19 03/03/19 Range/Units 02:30 04:47 06:31 ABG pCO2 (35-45) mmHg ABG pO2 (83-108) mmHg ABG HCO3 (21-25) mmol/L ABG Total CO2 (19-24) mmol/L ABG O2 Saturation (94-97) % POC Glucose (mg/dL) 162 H 180 H 218 H (75-99) mg/dL 03/03/19 Range/Units 08:28 ABG pCO2 (35-45) mmHg ABG pO2 (83-108) mmHg ABG HCO3 (21-25) mmol/L ABG Total CO2 (19-24) mmol/L ABG O2 Saturation (94-97) % POC Glucose (mg/dL) 193 H (75-99) mg/dL Microbiology - Last 24 Hours (Table) 02/27/19 16:37 Blood Culture - Preliminary Blood No Growth after 72 hours Assessment and Plan (1) Altered mental status Current Visit: Yes Status: Acute Code(s): R41.82 - ALTERED MENTAL STATUS, UNSPECIFIED SNOMED Code(s): 140031523 (2) Respiratory failure with hypoxia Current Visit: Yes Status: Acute Code(s): J96.91 - RESPIRATORY FAILURE, UNSPECIFIED WITH HYPOXIA SNOMED Code(s): 18834198556055818 (3) At risk for readmission to hospital Current Visit: No Status: Acute Code(s): Z91.89 - OTH PERSONAL RISK FACTORS, NOT ELSEWHERE CLASSIFIED SNOMED Code(s): 7937316432936 (4) Elevated troponin Current Visit: No Status: Acute Code(s): R74.8 - ABNORMAL LEVELS OF OTHER SERUM ENZYMES SNOMED Code(s): 086057223 (5) Hyperkalemia Current Visit: No Status: Acute Code(s): E87.5 - HYPERKALEMIA SNOMED Code(s): 26315169 Plan: We'll continue to follow. Element of discharge planning. Check CBC and CMP in a.m. I suspect the patient will need ECF/rehab placement. She orders otherwise.
[2019-03-03] MEDS: ASPIRIN 81 MG PO SCH (09:01)
[2019-03-03] MEDS: HEPARIN SODIUM,PORCINE 5,000 UNIT/ML 1 ML VIAL SQ SCH ×3 (09:01→20:17)
[2019-03-03] MEDS: ATORVASTATIN 20 MG TAB PO SCH (09:01)
[2019-03-03] MEDS: METOPROLOL TARTRATE 25 MG TAB PO SCH ×2 (09:01→20:17)
[2019-03-03] MEDS: LISINOPRIL 5 MG TAB PO SCH ×2 (09:01→20:17)
[2019-03-03] MEDS: FUROSEMIDE 10 MG/ML 4 ML VIAL IV SCH (09:02)
[2019-03-03] MEDS: LORazepam 2 MG/ML INJ IV PRN ×3 (09:13→20:17)
[2019-03-03 10:28] LABS: Glucose,Whole Blood 210 mg/dL (75-99)
--- NOTE | 2019-03-03 11:22 | P.PN ---
Subjective Progress Note Date: 03/03/19 83-year-old female patient came in for altered mentation with with CO2 narcosis. The patient's chronic hypoxic and hypercapnic respiratory failure. She has advanced COPD. She also has history of lung cancer that was treated through [facility] and she received a combination of chemoradiation therapy. Since then the patient has not had any significant or active follow- up. The patient came in with hypercapnic respiratory failure with a pH of 7.2 and a pCO2 of 92. She was placed on a BiPAP machine and I realized today that she is on a AVAPS mode on the BiPAP with a target tidal volume of 350. Earlier this morning, the patient had woken up. She is communicating. She is still con fused. She looks quite lethargic although more awake compared to yesterday. The repeat blood gases from today showed some improvement in her CO2 and her current pH is at 7.36 with a pCO2 of 78 and pO2 of 100 and this was done on an FiO2 of liters high flow. She does have some chronic lower extremity edema in addition. She has underlying with CAD. The chest x-ray that was done at the time of admission showed cardiomegaly and bilateral pleural effusion and pulmonary vascular congestion. Ultrasound the chest shows small pockets of fluid on the right , she is on DuoNeb the right seems [id number]. She is on a combination of Perforomist and Pulmicort nebulized treatments, she is on IV Lasix 40 mg every 12 hours and she is also on IV Solu-Medrol 40 mg every 6 hours. She was given IV Rocephin for a suspected UTI. On 03/02/2019 the patient is feeling slightly better compared to yesterday. She is off the BiPAP on 4 L of oxygen by nasal cannula. She is more alert and she is communicating and she was able to sit up on a chair at the bedside. Her edema lower extremities improved. She has a Mcintosh catheter in place and she is producing adequate amount of urine output while being on IV Lasix 40 mg every 24 hours. Creatinine stable at 1.5. She is on DuoNeb nebulized treatments [id number]. She remains on IV Solu-Medrol. She is on a combination of Perforomist and Pulmicort neb last treatment twice a day in addition to DuoNeb nebulized treatments around the clock. She is also on IV Rocephin. The blood gases from yesterday showed chronic compensated respiratory acidosis. Her white cell count is at 6.3. Serum bicarb is at 43 and creatinine is at 1.5. 03/03/2019 the patient is doing poorly. She is on a BiPAP at a pressure of 14/6 cm of water and her terminated tidal volumes in order of 50 mL. Her blood gases from yesterday showed chronic compensated respiratory acidosis with a pH of 7.38 and a pCO2 of 82 and pO2 of 72 and this was done and FiO2 of 40%. Her serum bicarbonate today's at 43. She is diuresing adequately with IV Lasix. Her BNP is a 54 with a creatinine of 1.5. She is quite lethargic. She is sleeping most of the time and she is wearing her BiPAP for now. She is a bit difficult to arouse. I think is in ongoing component of CO2 narcosis in this patient. Repeat blood gases will be needed. Objective - Vital Signs Vital signs: Vital Signs Temp 97.9 F 03/03/19 08:30 Pulse 82 03/03/19 08:30 Resp 20 03/03/19 08:30 BP 131/77 03/03/19 08:30 Pulse Ox 92 L 03/03/19 08:30 Intake & Output 03/02/19 03/03/19 03/03/19 18:59 06:59 18:59 Intake Total 493.6 30.351 134.017 Output Total 1500 600 300 Balance -1006.4 -569.649 -165.983 Weight 81 kg 80.5 kg Intake: Intake, IV Titration 13.6 30.351 14.017 Amount Insulin Regular 100 unit 13.6 30.351 14.017 In Sodium Chloride 0.9% 100 ml @ Titrate IV .Q0M [facility] Rx#:[id number] Oral 480 0 120 Output: Urine 1500 600 300 Uretheral (Mcintosh) 450 Other: Voiding Method Indwelling Catheter Indwelling Catheter Indwelling Catheter - Exam the patient is lethargic, him a difficult to arouse. She would mumble. She would not be able to stay. This is. currently wearing a BiPAP at a pressure of 14/6 cm of water Head exam was generally normal. There was no scleral icterus or corneal arcus. Mucous membranes were moist. Neck was supple and without jugular venous distension, thyromegaly, or carotid bruits. Carotids were easily palpable bilaterally. There was no adenopathy. Lungs sounds are markedly diminished bilaterally. Air entry is significantly diminished and the patient is crackles in the lung bases and there is diminished breath on the right lung base along with some dullness to percussion. Cardiac exam revealed the PMI to be normally situated and sized. The rhythm was regular and no extrasystoles were noted during several minutes of auscultation. The first and second heart sounds were normal and physiologic splitting of the second heart sound was noted. There were no murmurs, rubs, clicks, or gallops. Abdominal exam revealed normal bowel sounds. The abdomen was soft, non-tender, and without masses, organomegaly, or appreciable enlargement of the abdominal aorta. Extremities are showing diminished pulses. There is chronic erythema in lower extremities bilaterally below the knees and the patient has trace edema lower extremity is bilaterally. No cyanosis. No clubbing.there is some improvement in lower extremity edema compared to yesterday. Neurologically the patient is quite lethargic at this point in time and she still BiPAP dependent. Suspect underlying component of CO2 narcosis related to chronic hypercapnic respiratory failure. - Labs CBC & Chem 7: 03/02/19 05:50 03/02/19 05:50 Labs: Abnormal Lab Results - Last 24 Hours (Table) 03/02/19 03/02/19 03/02/19 Range/Units 12:06 : 17:07 ABG pCO2 82 H* (35-45) mmHg ABG pO2 72 L (83-108) mmHg ABG HCO3 48 H* (21-25) mmol/L ABG Total CO2 51 H (19-24) mmol/L ABG O2 Saturation 93.9 L (94-97) % POC Glucose (mg/dL) 258 H 324 H (75-99) mg/dL 03/02/19 03/02/19 03/02/19 Range/Units 18:50 19:36 20:08 ABG pCO2 (35-45) mmHg ABG pO2 (83-108) mmHg ABG HCO3 (21-25) mmol/L ABG Total CO2 (19-24) mmol/L ABG O2 Saturation (94-97) % POC Glucose (mg/dL) 274 H 241 H 187 H (75-99) mg/dL 03/02/19 03/02/19 03/03/19 Range/Units 20:38 22:28 01:47 ABG pCO2 (35-45) mmHg ABG pO2 (83-108) mmHg ABG HCO3 (21-25) mmol/L ABG Total CO2 (19-24) mmol/L ABG O2 Saturation (94-97) % POC Glucose (mg/dL) 195 H 114 H 154 H (75-99) mg/dL 03/03/19 03/03/19 03/03/19 Range/Units 02:30 04:47 06:31 ABG pCO2 (35-45) mmHg ABG pO2 (83-108) mmHg ABG HCO3 (21-25) mmol/L ABG Total CO2 (19-24) mmol/L ABG O2 Saturation (94-97) % POC Glucose (mg/dL) 162 H 180 H 218 H (75-99) mg/dL 03/03/19 03/03/19 Range/Units 08:28 10:27 ABG pCO2 (35-45) mmHg ABG pO2 (83-108) mmHg ABG HCO3 (21-25) mmol/L ABG Total CO2 (19-24) mmol/L ABG O2 Saturation (94-97) % POC Glucose (mg/dL) 193 H 210 H (75-99) mg/dL Microbiology - Last 24 Hours (Table) 02/27/19 16:37 Blood Culture - Preliminary Blood No Growth after 72 hours Assessment and Plan Plan: 1 altered mental status secondary to hypercapnic respiratory failure/CO2 narcosis. CT angiogram of the brain that was done showed no acute abnormalities and there are no signs of acute CVA on today's evaluation she is slightly worse compared to yesterday. More lethargic and encephalopathic probably related to CO2 narcosis. 2 chronic hypoxic respiratory failure, blood gases was noted and currently on BiPAP 3 chronic hypercapnic respiratory failure, blood gases from yesterday was noted, currently on BiPAP 4 acute on chronic hypercapnic respiratory failure with CO2 narcosis 5 history of lung cancer with previous chemoradiation therapy, follow-up CAT scan of the chest showed bilateral pleural effusions right more than left and that is no evidence of any spiculated lesion that was seen in the left upper lobe. 6 advanced COPD with chronic hypoxic respiratory failure 7 right-sided pleural effusion 8 chronic smoking 9 diabetes mellitus 7 hyperlipidemia 11 hypertension 12 macular degeneration 13 right lower extremity edema 14 impaired performance and functional status secondary to above-mentioned comorbidities. 15 acute kidney injury review to contrast and diuretics Plan Doing poorly. Continue diuretics. Continue BiPAP. Continue bronchodilators and steroids. Obtain a blood gas to assess acid base status. Add Diamox to 50 mg IV every 12 hours 2 doses. Monitor mentation. Keep her nothing by mouth for now. Continue bronchodilators. Chest x-ray was reviewed from yesterday and shows bilateral pleural effusion with remains unchanged. We'll follow. DNR/DNI CODE STATUS. Prognosis poor based on the above-mentioned comorbidities. She would likely not recover from this event.
--- NOTE | 2019-03-03 11:37 | XR ---
EXAMINATION TYPE: XR chest 1V portable DATE OF EXAM: 03/03/2019 COMPARISON: Prior chest x-ray 02/27/2019 HISTORY: Shortness of breath TECHNIQUE: Single frontal view of the chest is obtained. FINDINGS: Bibasilar increased density obscures the hemidiaphragms. Heart is enlarged. Interstitium i s mildly increased. There is no evident pneumothorax. There are overlying artifacts. Aorta is dense. IMPRESSION: Bibasilar effusions and associated atelectasis versus edema, correlate to exclude pneumo melyssa. There may be a component of volume overload, pulmonary venous hypertension and interstitial tod a.
[2019-03-03 11:53] LABS: Calcium 8.7 mg/dL (8.4-10.2); Potassium 3.7 mmol/L (3.5-5.1)
[2019-03-03 12:04] LABS: ABG Base Excess 27.7 mmol/L; ABG Oxygen Saturation 98.6 % (94-97); ABG PH 7.46 (7.35-7.45); ABG PO2 102 mmHg (83-108); ABG TCO2 54 mmol/L (19-24); Allen Test Performed? Yes
[2019-03-03 12:07] LABS: ABG PCO2 73 mmHg (35-45)
[2019-03-03 12:08] LABS: ABG HCO3 52 mmol/L (21-25)
[2019-03-03 12:28] LABS: Glucose,Whole Blood 218 mg/dL (75-99)
[2019-03-03 14:28] LABS: Glucose,Whole Blood 214 mg/dL (75-99)
[2019-03-03 16:29] LABS: Glucose,Whole Blood 170 mg/dL (75-99)
[2019-03-03] MEDS: INSULIN REGULAR 100 UNIT in SODIUM CHLORIDE 0.9% 100 ML IV SCH (16:34)
[2019-03-03] MEDS: SODIUM CHLORIDE 0.9% 1,000 ML IV SCH (16:37)
[2019-03-03 18:29] LABS: Glucose,Whole Blood 140 mg/dL (75-99)
[2019-03-03 20:33] LABS: Glucose,Whole Blood 223 mg/dL (75-99)
[2019-03-03 22:51] LABS: Glucose,Whole Blood 242 mg/dL (75-99)
[2019-03-04] MEDS: methylPREDNISolone SOD SUCCI 40 MG/ML 1 ML VIAL IV SCH ×4 (00:43→18:07)
[2019-03-04 00:44] LABS: Glucose,Whole Blood 269 mg/dL (75-99)
[2019-03-04 02:34] LABS: Glucose,Whole Blood 268 mg/dL (75-99)
[2019-03-04 04:43] LABS: Glucose,Whole Blood 270 mg/dL (75-99)
[2019-03-04] MEDS: PANTOPRAZOLE 40 MG TABLET PO SCH (05:34)
[2019-03-04] MEDS: INSULIN ASPART (NovoLOG) 100 UNIT/ML VIAL SQ SCH ×3 (05:34→18:49)
[2019-03-04 06:35] LABS: Glucose,Whole Blood 284 mg/dL (75-99)
[2019-03-04 07:12] LABS: HCT 38.8 % (34.0-46.0); HGB 11.5 gm/dL (11.4-16.0); Hypochromasia Marked; MCHC 29.7 g/dL (31.0-37.0); MCV 104.5 fL (80.0-100.0); Macrocytosis Slight; Mean Platelet Volume 7.9; Platelet Count 145 k/uL (150-450); RBC 3.72 m/uL (3.80-5.40); RDW 13.4 % (11.5-15.5)
[2019-03-04 07:13] LABS: Albumin 2.9 g/dL (3.5-5.0); Calcium 8.5 mg/dL (8.4-10.2); Potassium 3.9 mmol/L (3.5-5.1); Total Bilirubin 0.7 mg/dL (0.2-1.3); Total Protein 5.3 g/dL (6.3-8.2)
--- NOTE | 2019-03-04 08:06 | P.PN ---
Subjective Principal diagnosis: altered mental status. The patient is here essentially for altered mental status and electrolyte abnormalities. Appreciate cardiology and neurology input. The patient is still quite disoriented this morning. The patient has minimal complaints however. She seems to be tolerating diet appropriately.she seems much weaker today however.hospice is now in the equation. Objective - Vital Signs Vital signs: Vital Signs Temp 98.9 F 03/04/19 04:00 Pulse 85 03/04/19 04:00 Resp 20 03/04/19 04:00 BP 157/92 03/04/19 04:00 Pulse Ox 96 03/04/19 04:00 Intake & Output 03/03/19 03/04/19 03/04/19 18:59 06:59 18:59 Intake Total 874.917 59.784 Output Total 1200 325 500 Balance -325.083 -265.216 -500 Weight 80.5 kg Intake: IV 22 Insulin Regular 100 unit 22 In Sodium Chloride 0.9% 100 ml @ Titrate IV .Q0M [facility] Rx#:[id number] Intake, IV Titration 252.917 59.784 Amount Insulin Regular 100 unit 42.917 59.784 In Sodium Chloride 0.9% 100 ml @ Titrate IV .Q0M [facility] Rx#:[id number] Sodium Chloride 0.9% 1, 160 000 ml @ 20 mls/hr IV . Q24H [facility] Rx#:[id number] cefTRIAXone 1 gm In 50 Sodium Chloride 0.9% 50 ml @ 100 mls/hr IVPB Q24H [facility] Rx#:[id number] Oral 600 0 Output: Urine 1200 325 500 Other: Voiding Method Indwelling Catheter Indwelling Catheter - Constitutional General appearance: Present: no acute distress - EENT Eyes: Absent: abnormal pupil - Neck Neck: Absent: lymphadenopathy - Respiratory Respiratory: right: CTA - Cardiovascular Rhythm: regular Heart sounds: normal: S1, S2 Abnormal Heart Sounds: Absent: S3 Gallop - Gastrointestinal General gastrointestinal: Present: soft. Absent: tenderness - Neurologic Neurologic: Present: CNII-XII intact. Absent: focal deficits - Labs CBC & Chem 7: 03/04/19 06:30 03/04/19 06:30 Labs: Abnormal Lab Results - Last 24 Hours (Table) 03/03/19 03/03/19 03/03/19 Range/Units 08:28 10:27 11:13 RBC (3.80-5.40) m/uL MCV (80.0-100.0) fL MCHC (31.0-37.0) g/dL Plt Count (150-450) k/uL ABG pH (7.35-7.45) ABG pCO2 (35-45) mmHg ABG HCO3 (21-25) mmol/L ABG Total CO2 (19-24) mmol/L ABG O2 Saturation (94-97) % Chloride 94 L (98-107) mmol/L Carbon Dioxide 48 H* (22-30) mmol/L BUN 52 H (7-17) mg/dL Creatinine 1.55 H (0.52-1.04) mg/dL Glucose 191 H (74-99) mg/dL POC Glucose (mg/dL) 193 H 210 H (75-99) mg/dL Total Protein (6.3-8.2) g/dL Albumin (3.5-5.0) g/dL 03/03/19 03/03/19 03/03/19 Range/Units 12:02 12:27 14:27 RBC (3.80-5.40) m/uL MCV (80.0-100.0) fL MCHC (31.0-37.0) g/dL Plt Count (150-450) k/uL ABG pH 7.46 H (7.35-7.45) ABG pCO2 73 H* (35-45) mmHg ABG HCO3 52 H* (21-25) mmol/L ABG Total CO2 54 H (19-24) mmol/L ABG O2 Saturation 98.6 H (94-97) % Chloride (98-107) mmol/L Carbon Dioxide (22-30) mmol/L BUN (7-17) mg/dL Creatinine (0.52-1.04) mg/dL Glucose (74-99) mg/dL POC Glucose (mg/dL) 218 H 214 H (75-99) mg/dL Total Protein (6.3-8.2) g/dL Albumin (3.5-5.0) g/dL 03/03/19 03/03/19 03/03/19 Range/Units 16:27 18:28 20:32 RBC (3.80-5.40) m/uL MCV (80.0-100.0) fL MCHC (31.0-37.0) g/dL Plt Count (150-450) k/uL ABG pH (7.35-7.45) ABG pCO2 (35-45) mmHg ABG HCO3 (21-25) mmol/L ABG Total CO2 (19-24) mmol/L ABG O2 Saturation (94-97) % Chloride (98-107) mmol/L Carbon Dioxide (22-30) mmol/L BUN (7-17) mg/dL Creatinine (0.52-1.04) mg/dL Glucose (74-99) mg/dL POC Glucose (mg/dL) 170 H 140 H 223 H (75-99) mg/dL Total Protein (6.3-8.2) g/dL Albumin (3.5-5.0) g/dL 03/03/19 03/04/19 03/04/19 Range/Units 22:39 00:43 02:33 RBC (3.80-5.40) m/uL MCV (80.0-100.0) fL MCHC (31.0-37.0) g/dL Plt Count (150-450) k/uL ABG pH (7.35-7.45) ABG pCO2 (35-45) mmHg ABG HCO3 (21-25) mmol/L ABG Total CO2 (19-24) mmol/L ABG O2 Saturation (94-97) % Chloride (98-107) mmol/L Carbon Dioxide (22-30) mmol/L BUN (7-17) mg/dL Creatinine (0.52-1.04) mg/dL Glucose (74-99) mg/dL POC Glucose (mg/dL) 242 H 269 H 268 H (75-99) mg/dL Total Protein (6.3-8.2) g/dL Albumin (3.5-5.0) g/dL 03/04/19 03/04/19 03/04/19 Range/Units 04:42 06:30 06:30 RBC 3.72 L (3.80-5.40) m/uL MCV 104.5 H (80.0-100.0) fL MCHC 29.7 L (31.0-37.0) g/dL Plt Count 145 L (150-450) k/uL ABG pH (7.35-7.45) ABG pCO2 (35-45) mmHg ABG HCO3 (21-25) mmol/L ABG Total CO2 (19-24) mmol/L ABG O2 Saturation (94-97) % Chloride 96 L (98-107) mmol/L Carbon Dioxide 45 H* (22-30) mmol/L BUN 52 H (7-17) mg/dL Creatinine 1.72 H (0.52-1.04) mg/dL Glucose 285 H (74-99) mg/dL POC Glucose (mg/dL) 270 H (75-99) mg/dL Total Protein 5.3 L (6.3-8.2) g/dL Albumin 2.9 L (3.5-5.0) g/dL 03/04/19 Range/Units 06:33 RBC (3.80-5.40) m/uL MCV (80.0-100.0) fL MCHC (31.0-37.0) g/dL Plt Count (150-450) k/uL ABG pH (7.35-7.45) ABG pCO2 (35-45) mmHg ABG HCO3 (21-25) mmol/L ABG Total CO2 (19-24) mmol/L ABG O2 Saturation (94-97) % Chloride (98-107) mmol/L Carbon Dioxide (22-30) mmol/L BUN (7-17) mg/dL Creatinine (0.52-1.04) mg/dL Glucose (74-99) mg/dL POC Glucose (mg/dL) 284 H (75-99) mg/dL Total Protein (6.3-8.2) g/dL Albumin (3.5-5.0) g/dL Microbiology - Last 24 Hours (Table) 02/27/19 16:37 Blood Culture - Preliminary Blood No Growth after 96 hours Assessment and Plan (1) Altered mental status Current Visit: Yes Status: Acute Code(s): R41.82 - ALTERED MENTAL STATUS, UNSPECIFIED SNOMED Code(s): 515859482 (2) Respiratory failure with hypoxia Current Visit: Yes Status: Acute Code(s): J96.91 - RESPIRATORY FAILURE, UNSPECIFIED WITH HYPOXIA SNOMED Code(s): 77760904097405167 (3) At risk for readmission to hospital Current Visit: No Status: Acute Code(s): Z91.89 - OTH PERSONAL RISK FACTORS, NOT ELSEWHERE CLASSIFIED SNOMED Code(s): 9220479524108 (4) Elevated troponin Current Visit: No Status: Acute Code(s): R74.8 - ABNORMAL LEVELS OF OTHER SERUM ENZYMES SNOMED Code(s): 121298382 (5) Hyperkalemia Current Visit: No Status: Acute Code(s): E87.5 - HYPERKALEMIA SNOMED Code(s): 55302580 Plan: We'll continue to follow. Prognosis guarded secondary to multiple comorbidities. Hospice will now be consulted. Continue to follow. Prognosis is poor Time with Patient: Greater than 30
[2019-03-04] MEDS: BUDESONIDE 1 MG/2 ML NEBU INHALATION SCH ×2 (08:25→21:33)
[2019-03-04] MEDS: IPRATROPIUM-ALBUTEROL 3 ML NEB INHALATION SCH ×4 (08:25→21:33)
[2019-03-04 08:30] LABS: Glucose,Whole Blood 292 mg/dL (75-99)
[2019-03-04] MEDS: FORMOTEROL FUMARATE 20 MCG/2 ML NEBU INHALATION SCH ×2 (08:40→21:33)
[2019-03-04] MEDS: INSULIN REGULAR 100 UNIT in SODIUM CHLORIDE 0.9% 100 ML IV SCH (09:25)
[2019-03-04] MEDS: ASPIRIN 81 MG PO SCH (09:35)
[2019-03-04] MEDS: FUROSEMIDE 10 MG/ML 4 ML VIAL IV SCH (09:35)
[2019-03-04] MEDS: HEPARIN SODIUM,PORCINE 5,000 UNIT/ML 1 ML VIAL SQ SCH ×2 (09:35→16:21)
[2019-03-04] MEDS: METOPROLOL TARTRATE 25 MG TAB PO SCH ×2 (09:35→20:26)
[2019-03-04] MEDS: ATORVASTATIN 20 MG TAB PO SCH (09:35)
[2019-03-04] MEDS: LISINOPRIL 5 MG TAB PO SCH ×2 (09:35→20:26)
[2019-03-04 10:27] LABS: Glucose,Whole Blood 269 mg/dL (75-99)
[2019-03-04] MEDS: LORazepam 2 MG/ML INJ IV PRN ×2 (11:35→18:08)
[2019-03-04 12:29] LABS: Glucose,Whole Blood 195 mg/dL (75-99)
[2019-03-04] MEDS: SODIUM CHLORIDE 0.9% 1,000 ML IV SCH (12:47)
--- NOTE | 2019-03-04 13:33 | CDI ---
Documentation Clarification Form Date: 03/04/2019 01:15:26 PM From: Celine MackenzieCORY, CCDS Phone: [phone] Admit Date: 02/27/2019 02:43:00 PM Patient Name: Rupa Jensen Visit Number: [id number] Discharge Date: ATTENTION: The Clinical Documentation Specialists (CDI) and [facility] Coding Staff appreciate your assistance in clarifying documentation. Please respond to the clarification below the line at the bottom and electronically sign. The CDI & [facility] Coding staff will review the response and follow-up if needed. Please note: Queries are made part of the Legal Health Record. If you have any questions, please contact the author of this message via ITS. Dr. Axel Cotter or Dr. Jose Mcnamara: The patient presented with the following: altered mental status, PO 77-80%, tachypneic with respiratory rate up to 25, retaining CO2, pH 7.2 & elevated troponin noted to be chronically elevated. Diagnosed with acute exacerbation of COPD, Respiratory acidosis, Metabolic & Respiratory encephalopathy, acute on chronic hypoxemic & hypercapnic respiratory failure, acute exacerbation of diastolic CHF & UTI. History/Risk Factors: Asthma, COPD, Left lung cancer, DM II, Hypertension & former smoker. Clinical Indicators: Altered mental status, Hypoxic, low BP, Low PO. Admission VS: T 98.6 - 96.2*, P 90 - 105 (03/01), R 16 - 8 - 11 - 36^ (02/28), BP 98/51, PO 81 RA down to 75 on nrb, BiPAP added LAB: WBC 7.5, pH 7.23*, pCO2 92^^, HCO3 37^, K 5.6^, BUN 24^, Cr 1.31^, Glucose 240^, Trop 0.038^^, Ammonia 41^. UA: yellow, turbid, 2+ prot, tr blood, 1+ bili, lg esterase, WBC 120 Lactic acid: 2.0 Blood cultures: negative. Urine culture: negative Treatment: IV fluid bolus, IV Ativan, INH Albuterol, IV Insulin, IV Rocephin, IV Azithromycin, IV Lasix, IV Solumedrol, In your professional opinion, please clarify if these findings signify one of the following conditions, whether the condition is POA, and cause, if known: Sepsis ruled out Sepsis ruled in, please specify cause if known o Severe Sepsis Septic Shock: yes or no, if yes, please document the associated organ failure and/or related conditions Other, please specify Unable to determine Present on Admission: Yes or No (Last Revision: June 2017) Appropriate documentation as per my note. MTDD
[2019-03-04 14:31] LABS: Glucose,Whole Blood 139 mg/dL (75-99)
[2019-03-04 15:26] VITALS: BMI 30.4
[2019-03-04 16:24] LABS: Glucose,Whole Blood 96 mg/dL (75-99)
--- NOTE | 2019-03-04 17:12 | P.PN ---
Subjective Progress Note Date: 03/04/19 83-year-old female patient came in for altered mentation with with CO2 narcosis. The patient's chronic hypoxic and hypercapnic respiratory failure. She has advanced COPD. She also has history of lung cancer that was treated through [facility] and she received a combination of chemoradiation therapy. Since then the patient has not had any significant or active follow- up. The patient came in with hypercapnic respiratory failure with a pH of 7.2 and a pCO2 of 92. She was placed on a BiPAP machine and I realized today that she is on a AVAPS mode on the BiPAP with a target tidal volume of 350. Earlier this morning, the patient had woken up. She is communicating. She is still con fused. She looks quite lethargic although more awake compared to yesterday. The repeat blood gases from today showed some improvement in her CO2 and her current pH is at 7.36 with a pCO2 of 78 and pO2 of 100 and this was done on an FiO2 of liters high flow. She does have some chronic lower extremity edema in addition. She has underlying with CAD. The chest x-ray that was done at the time of admission showed cardiomegaly and bilateral pleural effusion and pulmonary vascular congestion. Ultrasound the chest shows small pockets of fluid on the right , she is on DuoNeb the right seems [id number]. She is on a combination of Perforomist and Pulmicort nebulized treatments, she is on IV Lasix 40 mg every 12 hours and she is also on IV Solu-Medrol 40 mg every 6 hours. She was given IV Rocephin for a suspected UTI. On 03/02/2019 the patient is feeling slightly better compared to yesterday. She is off the BiPAP on 4 L of oxygen by nasal cannula. She is more alert and she is communicating and she was able to sit up on a chair at the bedside. Her edema lower extremities improved. She has a Mcintosh catheter in place and she is producing adequate amount of urine output while being on IV Lasix 40 mg every 24 hours. Creatinine stable at 1.5. She is on DuoNeb nebulized treatments [id number]. She remains on IV Solu-Medrol. She is on a combination of Perforomist and Pulmicort neb last treatment twice a day in addition to DuoNeb nebulized treatments around the clock. She is also on IV Rocephin. The blood gases from yesterday showed chronic compensated respiratory acidosis. Her white cell count is at 6.3. Serum bicarb is at 43 and creatinine is at 1.5. 03/03/2019 the patient is doing poorly. She is on a BiPAP at a pressure of 14/6 cm of water and her terminated tidal volumes in order of 50 mL. Her blood gases from yesterday showed chronic compensated respiratory acidosis with a pH of 7.38 and a pCO2 of 82 and pO2 of 72 and this was done and FiO2 of 40%. Her serum bicarbonate today's at 43. She is diuresing adequately with IV Lasix. Her BNP is a 54 with a creatinine of 1.5. She is quite lethargic. She is sleeping most of the time and she is wearing her BiPAP for now. She is a bit difficult to arouse. I think is in ongoing component of CO2 narcosis in this patient. Repeat blood gases will be needed. 05/05/2018 I'm seeing the patient for a follow-up. The patient struggled throughout the day today and yesterday on the BiPAP. She is lethargic. She is confused. She opens up her eyes andshe'll occasionally respond's to simple commands. For the most partshe seems to be altered and encephalopathic. She is still on the same BiPAP pressure of 14/6. I do appreciate some improvement in her air exchange and the patient's tidal volume generated on the BiPAP seems to be above 400 mL. Most recent blood gas that was done yesterday showed a pH of 7.46 with a pCO2 of 73 and pO2 of 102. The patient was diuresing well with IV Lasix. The patient was becoming alkalotic. I gave her 2 dose of Diamox yesterday and I'm going to obtain a follow-up blood gas today. In terms of her labs, her white cell count is at 6 with a hemoglobin of 11.5. Her serum bicarb at 45.based on the lack of ongoing improvement, there was some discussion made with the regarding hospice care. The patient's is having difficulty making it final decision. I think we should give the patient 24 hours and will have a final decision with the next 24 hours on her condition and plan of treatment Objective - Vital Signs Vital signs: Vital Signs Temp 98.3 F 03/04/19 15:58 Pulse 86 03/04/19 16:48 Resp 20 03/04/19 15:58 BP 142/68 03/04/19 15:58 Pulse Ox 100 03/04/19 15:58 Intake & Output 03/03/19 03/04/19 03/04/19 18:59 06:59 18:59 Intake Total 874.917 59.784 49.100 Output Total 4842 248 8722 Balance -325.083 -265.216 -1750.900 Weight 80.5 kg 80.5 kg Intake: IV 22 Insulin Regular 100 unit 22 In Sodium Chloride 0.9% 100 ml @ Titrate IV .Q0M [facility] Rx#:[id number] Intake, IV Titration 252.917 59.784 49.100 Amount Insulin Regular 100 unit 42.917 59.784 49.100 In Sodium Chloride 0.9% 100 ml @ Titrate IV .Q0M [facility] Rx#:[id number] Sodium Chloride 0.9% 1, 160 000 ml @ 20 mls/hr IV . Q24H [facility] Rx#:[id number] cefTRIAXone 1 gm In 50 Sodium Chloride 0.9% 50 ml @ 100 mls/hr IVPB Q24H [facility] Rx#:[id number] Oral 600 0 0 Output: Urine 8647 860 4009 Other: Voiding Method Indwelling Catheter Indwelling Catheter Indwelling Catheter - Exam the patient is lethargic, him a difficult to arouse. She would mumble. She would not be able to stay. This is. currently wearing a BiPAP at a pressure of 14/6 cm of water Head exam was generally normal. There was no scleral icterus or corneal arcus. Mucous membranes were moist. Neck was supple and without jugular venous distension, thyromegaly, or carotid bruits. Carotids were easily palpable bilaterally. There was no adenopathy. Lungs sounds are markedly diminished bilaterally. Air entry is significantly diminished and the patient is crackles in the lung bases and there is diminished breath on the right lung base along with some dullness to percussion. Cardiac exam revealed the PMI to be normally situated and sized. The rhythm was regular and no extrasystoles were noted during several minutes of auscultation. The first and second heart sounds were normal and physiologic splitting of the second heart sound was noted. There were no murmurs, rubs, clicks, or gallops. Abdominal exam revealed normal bowel sounds. The abdomen was soft, non-tender, and without masses, organomegaly, or appreciable enlargement of the abdominal aorta. Extremities are showing diminished pulses. There is chronic erythema in lower extremities bilaterally below the knees and the patient has trace edema lower extremity is bilaterally. No cyanosis. No clubbing.there is some improvement in lower extremity edema compared to yesterday. Neurologically the patient is quite lethargic at this point in time and she still BiPAP dependent. Suspect underlying component of CO2 narcosis related to chronic hypercapnic respiratory failure. - Labs CBC & Chem 7: 03/04/19 06:30 03/04/19 06:30 Labs: Abnormal Lab Results - Last 24 Hours (Table) 03/03/19 03/03/19 03/03/19 Range/Units 18:28 20:32 22:39 RBC (3.80-5.40) m/uL MCV (80.0-100.0) fL MCHC (31.0-37.0) g/dL Plt Count (150-450) k/uL Chloride (98-107) mmol/L Carbon Dioxide (22-30) mmol/L BUN (7-17) mg/dL Creatinine (0.52-1.04) mg/dL Glucose (74-99) mg/dL POC Glucose (mg/dL) 140 H 223 H 242 H (75-99) mg/dL Total Protein (6.3-8.2) g/dL Albumin (3.5-5.0) g/dL 03/04/19 03/04/19 03/04/19 Range/Units 00:43 02:33 04:42 RBC (3.80-5.40) m/uL MCV (80.0-100.0) fL MCHC (31.0-37.0) g/dL Plt Count (150-450) k/uL Chloride (98-107) mmol/L Carbon Dioxide (22-30) mmol/L BUN (7-17) mg/dL Creatinine (0.52-1.04) mg/dL Glucose (74-99) mg/dL POC Glucose (mg/dL) 269 H 268 H 270 H (75-99) mg/dL Total Protein (6.3-8.2) g/dL Albumin (3.5-5.0) g/dL 03/04/19 03/04/19 03/04/19 Range/Units 06:30 06:30 06:33 RBC 3.72 L (3.80-5.40) m/uL MCV 104.5 H (80.0-100.0) fL MCHC 29.7 L (31.0-37.0) g/dL Plt Count 145 L (150-450) k/uL Chloride 96 L (98-107) mmol/L Carbon Dioxide 45 H* (22-30) mmol/L BUN 52 H (7-17) mg/dL Creatinine 1.72 H (0.52-1.04) mg/dL Glucose 285 H (74-99) mg/dL POC Glucose (mg/dL) 284 H (75-99) mg/dL Total Protein 5.3 L (6.3-8.2) g/dL Albumin 2.9 L (3.5-5.0) g/dL 03/04/19 03/04/19 03/04/19 Range/Units 08:29 10:26 12:28 RBC (3.80-5.40) m/uL MCV (80.0-100.0) fL MCHC (31.0-37.0) g/dL Plt Count (150-450) k/uL Chloride (98-107) mmol/L Carbon Dioxide (22-30) mmol/L BUN (7-17) mg/dL Creatinine (0.52-1.04) mg/dL Glucose (74-99) mg/dL POC Glucose (mg/dL) 292 H 269 H 195 H (75-99) mg/dL Total Protein (6.3-8.2) g/dL Albumin (3.5-5.0) g/dL 03/04/19 Range/Units 14:30 RBC (3.80-5.40) m/uL MCV (80.0-100.0) fL MCHC (31.0-37.0) g/dL Plt Count (150-450) k/uL Chloride (98-107) mmol/L Carbon Dioxide (22-30) mmol/L BUN (7-17) mg/dL Creatinine (0.52-1.04) mg/dL Glucose (74-99) mg/dL POC Glucose (mg/dL) 139 H (75-99) mg/dL Total Protein (6.3-8.2) g/dL Albumin (3.5-5.0) g/dL Microbiology - Last 24 Hours (Table) 02/27/19 16:37 Blood Culture - Preliminary Blood No Growth after 96 hours Assessment and Plan Plan: 1 altered mental status secondary to hypercapnic respiratory failure/CO2 narco sis. CT angiogram of the brain that was done showed no acute abnormalities and there are no signs of acute CVA on today's evaluation she is slightly worse compared to yesterday. condition is unchanged compared to yesterday. A much BiPAP dependent. Repeated blood gases still pending for now. Meanwhile the patient on a pressure of 14/5 with an FiO2 of 50%. She developed metabolic alkalosis. I'm going to give her Diamox if the alkalosis still present on the follow-up blood gases. 2 chronic hypoxic respiratory failure, blood gases was noted and currently on BiPAP 3 chronic hypercapnic respiratory failure, blood gases from yesterday was noted, currently on BiPAP 4 acute on chronic hypercapnic respiratory failure with CO2 narcosis 5 history of lung cancer with previous chemoradiation therapy, follow-up CAT scan of the chest showed bilateral pleural effusions right more than left and that is no evidence of any spiculated lesion that was seen in the left upper lobe. 6 advanced COPD with chronic hypoxic respiratory failure 7 right-sided pleural effusion 8 chronic smoking 9 diabetes mellitus 7 hyperlipidemia 11 hypertension 12 macular degeneration 13 right lower extremity edema 14 impaired performance and functional status secondary to above-mentioned comorbidities. 15 acute kidney injury review to contrast and diuretics creatinine stable at 1.8 Plan the patient is still struggling with her breathing. She is very much BiPAP dependent. Chest acute on top of chronic hypercapnic and hypoxic respiratory failure. She continues to have bilateral pleural effusion on chest x-rays. Diuresis ongoing yet the patient developed metabolic alkalosis and the patient was given Diamox. She is BiPAP dependent. We'll repeat the blood gas. We'll see the patient can tolerate a high flow oxygen just to give her a break off the BiPAP. We'll repeat chest x-ray in the morning. I think with the next 24-48 hours be able to make it final decision regarding outcome. I think her prognosis poor based comorbidities. Hospice is reasonable if the is agreeable
[2019-03-04 17:15] LABS: ABG Base Excess 23.9 mmol/L; ABG PH 7.41 (7.35-7.45); ABG PO2 130 mmHg (83-108); ABG TCO2 51 mmol/L (19-24); Allen Test Performed? Yes
[2019-03-04 17:19] LABS: ABG HCO3 49 mmol/L (21-25); ABG PCO2 78 mmHg (35-45)
[2019-03-04] MEDS ORDERED: FUROSEMIDE 10 MG/ML 4 ML VIAL IV STA (17:38)
[2019-03-04 18:25] LABS: Glucose,Whole Blood 91 mg/dL (75-99)
[2019-03-04 20:33] LABS: Glucose,Whole Blood 199 mg/dL (75-99)
[2019-03-04 22:37] LABS: Glucose,Whole Blood 182 mg/dL (75-99)
[2019-03-05] MEDS: HEPARIN SODIUM,PORCINE 5,000 UNIT/ML 1 ML VIAL SQ SCH ×4 (00:09→22:57)
[2019-03-05] MEDS: methylPREDNISolone SOD SUCCI 40 MG/ML 1 ML VIAL IV SCH ×5 (00:09→22:57)
[2019-03-05] MEDS: LORazepam 2 MG/ML INJ IV PRN ×3 (00:31→18:13)
[2019-03-05 00:41] LABS: Glucose,Whole Blood 158 mg/dL (75-99)
[2019-03-05 02:36] LABS: Glucose,Whole Blood 156 mg/dL (75-99)
[2019-03-05 04:34] LABS: Glucose,Whole Blood 152 mg/dL (75-99)
[2019-03-05 06:45] LABS: Glucose,Whole Blood 150 mg/dL (75-99)
--- NOTE | 2019-03-05 07:27 | P.PN ---
Subjective Principal diagnosis: altered mental status. The patient is here essentially for altered mental status and electrolyte abnormalities. we are discussing possible hospice with the . As the prognosis is quite poor. Objective - Vital Signs Vital signs: Vital Signs Temp 97.9 F 03/05/19 04:30 Pulse 81 03/05/19 04:30 Resp 17 03/05/19 04:30 BP 140/71 03/05/19 04:30 Pulse Ox 99 03/05/19 04:30 Intake & Output 03/04/19 03/05/19 03/05/19 18:59 06:59 18:59 Intake Total 49.100 21.6 Output Total 1800 2500 Balance -1750.900 -2478.4 Weight 80.5 kg 79.5 kg Intake: Intake, IV Titration 49.100 21.6 Amount Insulin Regular 100 unit 49.100 21.6 In Sodium Chloride 0.9% 100 ml @ Titrate IV .Q0M [facility] Rx#:[id number] Oral 0 0 Output: Urine 1800 2500 Other: Voiding Method Indwelling Catheter Indwelling Catheter - Constitutional General appearance: Present: average body habitus - EENT Eyes: Absent: abnormal pupil - Neck Neck: Absent: lymphadenopathy - Respiratory Respiratory: bilateral: diminished - Cardiovascular Rhythm: regular Heart sounds: normal: S1, S2 Abnormal Heart Sounds: Absent: S3 Gallop - Gastrointestinal General gastrointestinal: Present: soft. Absent: tenderness - Labs CBC & Chem 7: 03/04/19 06:30 03/04/19 06:30 Labs: Abnormal Lab Results - Last 24 Hours (Table) 03/04/19 03/04/19 03/04/19 Range/Units 08:29 10:26 12:28 ABG pCO2 (35-45) mmHg ABG pO2 (83-108) mmHg ABG HCO3 (21-25) mmol/L ABG Total CO2 (19-24) mmol/L ABG O2 Saturation (94-97) % POC Glucose (mg/dL) 292 H 269 H 195 H (75-99) mg/dL 03/04/19 03/04/19 03/04/19 Range/Units 14:30 17:11 20:32 ABG pCO2 78 H* (35-45) mmHg ABG pO2 130 H (83-108) mmHg ABG HCO3 49 H* (21-25) mmol/L ABG Total CO2 51 H (19-24) mmol/L ABG O2 Saturation 99.0 H (94-97) % POC Glucose (mg/dL) 139 H 199 H (75-99) mg/dL 03/04/19 03/05/19 03/05/19 Range/Units 22:36 00:37 02:35 ABG pCO2 (35-45) mmHg ABG pO2 (83-108) mmHg ABG HCO3 (21-25) mmol/L ABG Total CO2 (19-24) mmol/L ABG O2 Saturation (94-97) % POC Glucose (mg/dL) 182 H 158 H 156 H (75-99) mg/dL 03/05/19 03/05/19 Range/Units 04:33 06:44 ABG pCO2 (35-45) mmHg ABG pO2 (83-108) mmHg ABG HCO3 (21-25) mmol/L ABG Total CO2 (19-24) mmol/L ABG O2 Saturation (94-97) % POC Glucose (mg/dL) 152 H 150 H (75-99) mg/dL Microbiology - Last 24 Hours (Table) 02/27/19 16:37 Blood Culture - Preliminary Blood No Growth after 120 hours Assessment and Plan (1) Altered mental status Current Visit: Yes Status: Acute Code(s): R41.82 - ALTERED MENTAL STATUS, UNSPECIFIED SNOMED Code(s): 099309080 (2) Respiratory failure with hypoxia Current Visit: Yes Status: Acute Code(s): J96.91 - RESPIRATORY FAILURE, UNSPECIFIED WITH HYPOXIA SNOMED Code(s): 06481377901887859 (3) At risk for readmission to hospital Current Visit: No Status: Acute Code(s): Z91.89 - OTH PERSONAL RISK FACTORS, NOT ELSEWHERE CLASSIFIED SNOMED Code(s): 0456652492380 (4) Elevated troponin Current Visit: No Status: Acute Code(s): R74.8 - ABNORMAL LEVELS OF OTHER SERUM ENZYMES SNOMED Code(s): 309421012 (5) Hyperkalemia Current Visit: No Status: Acute Code(s): E87.5 - HYPERKALEMIA SNOMED Code(s): 50782252 Plan: We'll continue to follow. Prognosis guarded secondary to multiple comorbidities. Hospice will now be consulted. Continue to follow. Prognosis is poor
[2019-03-05] MEDS: ATORVASTATIN 20 MG TAB PO SCH (08:39)
[2019-03-05] MEDS: METOPROLOL TARTRATE 25 MG TAB PO SCH ×2 (08:39→20:38)
[2019-03-05] MEDS: ASPIRIN 81 MG PO SCH (08:39)
[2019-03-05] MEDS: PANTOPRAZOLE 40 MG TABLET PO SCH (08:39)
[2019-03-05] MEDS: LISINOPRIL 5 MG TAB PO SCH ×2 (08:40→20:38)
[2019-03-05] MEDS: FORMOTEROL FUMARATE 20 MCG/2 ML NEBU INHALATION SCH ×2 (08:40→20:42)
[2019-03-05] MEDS: IPRATROPIUM-ALBUTEROL 3 ML NEB INHALATION SCH ×4 (08:40→20:42)
[2019-03-05] MEDS: FUROSEMIDE 10 MG/ML 4 ML VIAL IV SCH (08:40)
[2019-03-05] MEDS: BUDESONIDE 1 MG/2 ML NEBU INHALATION SCH ×2 (08:40→20:43)
[2019-03-05 08:43] LABS: Glucose,Whole Blood 151 mg/dL (75-99)
[2019-03-05 10:53] LABS: Glucose,Whole Blood 197 mg/dL (75-99)
[2019-03-05] MEDS: INSULIN ASPART (NovoLOG) 100 UNIT/ML VIAL SQ SCH ×3 (11:02→18:13)
[2019-03-05 12:47] LABS: Glucose,Whole Blood 201 mg/dL (75-99)
[2019-03-05 13:51] LABS: ABG Base Excess 24.7 mmol/L; ABG Oxygen Saturation 92.5 % (94-97); ABG PO2 65 mmHg (83-108); ABG TCO2 52 mmol/L (19-24); Allen Test Performed? Yes
[2019-03-05 13:55] LABS: ABG HCO3 50 mmol/L (21-25); ABG PCO2 81 mmHg (35-45)
--- NOTE | 2019-03-05 14:10 | P.PN ---
Subjective Progress Note Date: 03/05/19 Principal diagnosis: Altered mental status secondary to hypercapnic respiratory failure with CO2 narcosis. 83-year-old female patient came in for altered mentation with with CO2 narcosis. The patient's chronic hypoxic and hypercapnic respiratory failure. She has advanced COPD. She also has history of lung cancer that was treated through [facility] and she received a combination of chemoradiation therapy. Since then the patient has not had any significant or active follow- up. The patient came in with hypercapnic respiratory failure with a pH of 7.2 and a pCO2 of 92. She was placed on a BiPAP machine and I realized today that she is on a AVAPS mode on the BiPAP with a target tidal volume of 350. Earlier this morning, the patient had woken up. She is communicating. She is still confused. She looks quite lethargic although more awake compared to yesterday. The repeat blood gases from today showed some improvement in her CO2 and her current pH is at 7.36 with a pCO2 of 78 and pO2 of 100 and this was done on an FiO2 of liters high flow. She does have some chronic lower extremity edema in addition. She has underlying with CAD. The chest x-ray that was done at the time of admission showed cardiomegaly and bilateral pleural effusion and pu lmonary vascular congestion. Ultrasound the chest shows small pockets of fluid on the right , she is on DuoNeb the right seems [id number]. She is on a combination of Perforomist and Pulmicort nebulized treatments, she is on IV Lasix 40 mg every 12 hours and she is also on IV Solu-Medrol 40 mg every 6 hours. She was given IV Rocephin for a suspected UTI. On 03/02/2019 the patient is feeling slightly better compared to yesterday. She is off the BiPAP on 4 L of oxygen by nasal cannula. She is more alert and she is communicating and she was able to sit up on a chair at the bedside. Her edema lower extremities improved. She has a Mcintosh catheter in place and she is producing adequate amount of urine output while being on IV Lasix 40 mg every 24 hours. Creatinine stable at 1.5. She is on DuoNeb nebulized treatments [id number]. She remains on IV Solu-Medrol. She is on a combination of Perforomist and Pulmicort neb last treatment twice a day in addition to DuoNeb nebulized treatments around the clock. She is also on IV Rocephin. The blood gases from yesterday showed chronic compensated respiratory acidosis. Her white cell count is at 6.3. Serum bicarb is at 43 and creatinine is at 1.5. 03/03/2019 the patient is doing poorly. She is on a BiPAP at a pressure of 14/6 cm of water and her terminated tidal volumes in order of 50 mL. Her blood gases from yesterday showed chronic compensated respiratory acidosis with a pH of 7.38 and a pCO2 of 82 and pO2 of 72 and this was done and FiO2 of 40%. Her serum bicarbonate today's at 43. She is diuresing adequately with IV Lasix. Her BNP is a 54 with a creatinine of 1.5. She is quite lethargic. She is sleeping most of the time and she is wearing her BiPAP for now. She is a bit difficult to arouse. I think is in ongoing component of CO2 narcosis in this patient. Repeat blood gases will be needed. 05/05/2018 I'm seeing the patient for a follow-up. The patient struggled throughout the day today and yesterday on the BiPAP. She is lethargic. She is confused. She opens up her eyes andshe'll occasionally respond's to simple commands. For the most partshe seems to be altered and encephalopathic. She is still on the same BiPAP pressure of 14/6. I do appreciate some improvement in her air exchange and the patient's tidal volume generated on the BiPAP seems to be above 400 mL. Most recent blood gas that was done yesterday showed a pH of 7.46 with a pCO2 of 73 and pO2 of 102. The patient was diuresing well with IV Lasix. The patient was becoming alkalotic. I gave her 2 dose of Diamox yest erday and I'm going to obtain a follow-up blood gas today. In terms of her labs, her white cell count is at 6 with a hemoglobin of 11.5. Her serum bicarb at 45.based on the lack of ongoing improvement, there was some discussion made with the regarding hospice care. The patient's is having difficulty making it final decision. I think we should give the patient 24 hours and will have a final decision with the next 24 hours on her condition and plan of treatment The patient is seen today 03/05/2019 in follow-up on the selective care unit. She is more awake and alert today compared to yesterday. Still with some altered mental status. She is asking wear her margarette rings are as her and explained he had them back at home. She also stated she feels better today. Currently on 3 L high flow nasal cannula and maintaining O2 saturation at 98%. She's afebrile. Hemodynamically stable. Blood culture reveals no growth. Urine culture reveals no growth. Arterial blood gases drawn on 32% FiO2 today reveal a pO2 of 65, pCO2 81 and a pH is 7.40. Last night she was given additional Lasix 40 mg IVP along with Diamox. She remains on bronchodilators, IV Solu-Medrol, antibiotics in the form of ceftriaxone Objective - Vital Signs Vital signs: Vital Signs Temp 98.2 F 03/05/19 08:00 Pulse 92 03/05/19 12:38 Resp 20 03/05/19 08:00 BP 132/74 03/05/19 08:00 Pulse Ox 98 03/05/19 08:00 Intake & Output 03/04/19 03/05/19 03/05/19 18:59 06:59 18:59 Intake Total 49.100 21.6 16.366 Output Total 1800 2500 Balance -1750.900 -2478.4 16.366 Weight 80.5 kg 79.5 kg Intake: Intake, IV Titration 49.100 21.6 16.366 Amount Insulin Regular 100 unit 49.100 21.6 16.366 In Sodium Chloride 0.9% 100 ml @ Titrate IV .Q0M [facility] Rx#:[id number] Oral 0 0 Output: Urine 1800 2500 Other: Voiding Method Indwelling Catheter Indwelling Catheter Indwelling Catheter - Exam This is an 83-year-old female patient more awake and alert today. Currently on 3 L high flow nasal cannula alternating with BiPAP at a pressure of 14/6 cm of water. Head exam was generally normal. There was no scleral icterus or corneal arcus. Mucous membranes were moist. Neck was supple and without jugular venous distension, thyromegaly, or carotid bruits. Carotids were easily palpable bilaterally. There was no adenopathy. Lungs sounds are markedly diminished bilaterally. Air entry is significantly diminished and the patient is crackles in the lung bases and there is diminished breath on the right lung base along with some dullness to percussion. Cardiac exam revealed the PMI to be normally situated and sized. The rhythm was regular and no extrasystoles were noted during several minutes of auscultation. The first and second heart sounds were normal and physiologic splitting of the second heart sound was noted. There were no murmurs, rubs, clicks, or gallops. Abdominal exam revealed normal bowel sounds. The abdomen was soft, non-tender, and without masses, organomegaly, or appreciable enlargement of the abdominal aorta. Extremities are showing diminished pulses. There is chronic erythema in lower extremities bilaterally below the knees and the patient has trace edema lower extremity is bilaterally. No cyanosis. No clubbing.there is some improvement in lower extremity edema compared to yesterday. Neurologically the patient is quite lethargic at this point in time and she still BiPAP dependent. Suspect underlying component of CO2 narcosis related to chronic hypercapnic respiratory failure. - Labs CBC & Chem 7: 03/04/19 06:30 03/04/19 06:30 Labs: Abnormal Lab Results - Last 24 Hours (Table) 03/04/19 03/04/19 03/04/19 Range/Units 14:30 17:11 20:32 ABG pCO2 78 H* (35-45) mmHg ABG pO2 130 H (83-108) mmHg ABG HCO3 49 H* (21-25) mmol/L ABG Total CO2 51 H (19-24) mmol/L ABG O2 Saturation 99.0 H (94-97) % POC Glucose (mg/dL) 139 H 199 H (75-99) mg/dL 03/04/19 03/05/19 03/05/19 Range/Units 22:36 00:37 02:35 ABG pCO2 (35-45) mmHg ABG pO2 (83-108) mmHg ABG HCO3 (21-25) mmol/L ABG Total CO2 (19-24) mmol/L ABG O2 Saturation (94-97) % POC Glucose (mg/dL) 182 H 158 H 156 H (75-99) mg/dL 03/05/19 03/05/19 03/05/19 Range/Units 04:33 06:44 08:40 ABG pCO2 (35-45) mmHg ABG pO2 (83-108) mmHg ABG HCO3 (21-25) mmol/L ABG Total CO2 (19-24) mmol/L ABG O2 Saturation (94-97) % POC Glucose (mg/dL) 152 H 150 H 151 H (75-99) mg/dL 03/05/19 03/05/19 Range/Units 10:50 12:46 ABG pCO2 (35-45) mmHg ABG pO2 (83-108) mmHg ABG HCO3 (21-25) mmol/L ABG Total CO2 (19-24) mmol/L ABG O2 Saturation (94-97) % POC Glucose (mg/dL) 197 H 201 H (75-99) mg/dL Microbiology - Last 24 Hours (Table) 02/27/19 16:37 Blood Culture - Preliminary Blood No Growth after 120 hours Assessment and Plan Assessment: 1 altered mental status secondary to hypercapnic respiratory failure/CO2 narcosis. CT angiogram of the brain that was done showed no acute abnormalities and there are no signs of acute CVA on today's evaluation she is slightly better compared to yesterday. More awake and alert. [place] seen and asking questions. Still altered at times. She is currently on high flow oxygen at 3 L alternating with BiPAP on a pressure of 14/5 with an FiO2 of 50%. Arterial blood gases on 32% FiO2 today revealed a pO2 of 65, pCO2 2 of 81, pH 7.40. She is given additional Diamox today. She did diurese over 4 L from Lasix yesterday. 2 chronic hypoxic respiratory failure, today's blood gases was noted and currently alternating 3 L high flow nasal cannula later with BiPAP 3 chronic hypercapnic respiratory failure, blood gases from today were noted 4 acute on chronic hypercapnic respiratory failure with CO2 narcosis 5 history of lung cancer with previous chemoradiation therapy, follow-up CAT scan of the chest showed bilateral pleural effusions right more than left and that is no evidence of any spiculated lesion that was seen in the left upper lobe. 6 advanced COPD with chronic hypoxic respiratory failure 7 right-sided pleural effusion 8 chronic smoking 9 diabetes mellitus 7 hyperlipidemia 11 hypertension 12 macular degeneration 13 right lower extremity edema 14 impaired performance and functional status secondary to above-mentioned comorbidities. 15 acute kidney injury review to contrast and diuretics creatinine stable at 1.72 Plan The patient was seen and evaluated by Dr. Mcintosh. Arterial blood gases reviewed. She will be given an additional Diamox today. She is more awake and alert compared to yesterday. He did have further discussions with her who is at the bedside. Continue DO NOT RESUSCITATE/DO NOT INTUBATE CODE STATUS. He will talk with him again tomorrow based on her clinical status whether hospice would be recommended at this point or not. We'll continue to follow and make further recommendations based on her clinical status. I, the cosigning physician, performed a history & physical examination of the patient. Lungs sounds with crackles posteriorly. Maintaining good O2 saturations in the 90s on 3 L high flow nasal cannula alternating with BiPAP. I discussed the assessment and plan of care with my nurse practitioner, Deedee Quinteros. I attest to the above note as dictated by her.
[2019-03-05 17:40] LABS: Glucose,Whole Blood 181 mg/dL (75-99)
[2019-03-05] MEDS: SODIUM CHLORIDE 0.9% 1,000 ML IV SCH (18:15)
[2019-03-05 19:16] LABS: Glucose,Whole Blood 147 mg/dL (75-99)
[2019-03-05 21:02] LABS: Glucose,Whole Blood 98 mg/dL (75-99)
[2019-03-05 23:00] LABS: Glucose,Whole Blood 78 mg/dL (75-99)
[2019-03-06 00:29] LABS: Glucose,Whole Blood 93 mg/dL (75-99)
[2019-03-06] MEDS: LORazepam 2 MG/ML INJ IV PRN ×3 (01:22→21:40)
[2019-03-06 02:31] LABS: Glucose,Whole Blood 121 mg/dL (75-99)
[2019-03-06 04:28] LABS: Glucose,Whole Blood 137 mg/dL (75-99)
[2019-03-06 06:30] LABS: Glucose,Whole Blood 163 mg/dL (75-99)
[2019-03-06] MEDS: methylPREDNISolone SOD SUCCI 40 MG/ML 1 ML VIAL IV SCH ×3 (06:40→17:23)
[2019-03-06] MEDS: INSULIN ASPART (NovoLOG) 100 UNIT/ML VIAL SQ SCH ×3 (06:47→17:16)
[2019-03-06] MEDS: PANTOPRAZOLE 40 MG TABLET PO SCH (06:47)
[2019-03-06] MEDS: IPRATROPIUM-ALBUTEROL 3 ML NEB INHALATION SCH ×4 (07:02→19:23)
[2019-03-06] MEDS: BUDESONIDE 1 MG/2 ML NEBU INHALATION SCH ×2 (07:02→19:23)
[2019-03-06] MEDS: FORMOTEROL FUMARATE 20 MCG/2 ML NEBU INHALATION SCH ×2 (07:02→19:23)
--- NOTE | 2019-03-06 07:39 | XR ---
EXAMINATION TYPE: XR chest 1V portable DATE OF EXAM: 03/06/2019 HISTORY: CHF. REFERENCE: Previous study dated 03/03/2019. FINDINGS: The heart is enlarged. There are bilateral effusions. Bibasilar airspace disease. There is vascular c ongestion. IMPRESSION: NO SIGNIFICANT INTERVAL CHANGE IN THE APPEARANCE OF THE CHEST.
[2019-03-06] MEDS: LISINOPRIL 5 MG TAB PO SCH (09:18)
[2019-03-06] MEDS: ATORVASTATIN 20 MG TAB PO SCH (09:18)
[2019-03-06] MEDS: ASPIRIN 81 MG PO SCH (09:18)
[2019-03-06] MEDS: METOPROLOL TARTRATE 25 MG TAB PO SCH ×2 (09:19→21:39)
[2019-03-06 09:22] LABS: Glucose,Whole Blood 172 mg/dL (75-99)
[2019-03-06] MEDS: HEPARIN SODIUM,PORCINE 5,000 UNIT/ML 1 ML VIAL SQ SCH ×2 (09:24→17:24)
[2019-03-06] MEDS: FUROSEMIDE 10 MG/ML 4 ML VIAL IV SCH ×2 (09:24→21:40)
--- NOTE | 2019-03-06 11:22 | P.PN ---
Subjective 83-year-old female was admitted for altered mental status secondary to CO2 narcosis. Patient has advanced COPD and patient is on BiPAP since her adm ission. Without any significant improvement patient sharath on BiPAP. And lengthy discussion with the considering her advanced COPD and in spite of aggressive therapy patient clinical condition did not change much and remains on BiPAP. After discussion with the who is agreeable to discuss hospice care, hospice services were consulted. Review of systems: Unable to obtain due to her clinical condition. But the patient did not have had that she is okay All inpatient medications were reviewed and appropriate changes in these medications as dictated in the interval history and assessment and plan. Objective - Vital Signs Vital signs: Vital Signs Temp 98 F 03/06/19 08:00 Pulse 92 03/06/19 11:15 Resp 18 03/06/19 08:00 BP 122/79 03/06/19 08:00 Pulse Ox 98 03/06/19 08:00 Intake & Output 03/05/19 03/06/19 03/06/19 18:59 06:59 18:59 Intake Total 33.033 10.80 Output Total 1300 425 Balance -1266.967 -414.20 Weight 77 kg Intake: Intake, IV Titration 33.033 10.80 Amount Insulin Regular 100 unit 33.033 10.80 In Sodium Chloride 0.9% 100 ml @ Titrate IV .Q0M [facility] Rx#:[id number] Oral 0 Output: Urine 1300 425 Other: Voiding Method Indwelling Catheter Indwelling Catheter Indwelling Catheter - Exam PHYSICAL EXAMINATION: GENERAL: Sleeping on BiPAP, not in any acute distress. On BiPAP HEENT: Pupils are round and equally reacting to light. EOMI. No scleral icterus. No conjunctival pallor. Normocephalic, atraumatic. No pharyngeal erythema. No thyromegaly. CARDIOVASCULAR: S1 and S2 present. No murmurs, rubs, or gallops. PULMONARY: No significant air movement in both lungs. ABDOMEN: Soft, nontender, nondistended, normoactive bowel sounds. No palpable organomegaly. MUSCULOSKELETAL: No joint swelling or deformity. EXTREMITIES: No cyanosis, clubbing, or pedal edema. NEUROLOGICAL: Able to assess SKIN: No rashes. - Labs CBC & Chem 7: 03/04/19 06:30 03/04/19 06:30 Labs: Abnormal Lab Results - Last 24 Hours (Table) 03/05/19 03/05/19 03/05/19 Range/Units 12:46 13:39 17:15 ABG pCO2 81 H* (35-45) mmHg ABG pO2 65 L (83-108) mmHg ABG HCO3 50 H* (21-25) mmol/L ABG Total CO2 52 H (19-24) mmol/L ABG O2 Saturation 92.5 L (94-97) % POC Glucose (mg/dL) 201 H 181 H (75-99) mg/dL 03/05/19 03/06/19 03/06/19 Range/Units 19:14 02:30 04:27 ABG pCO2 (35-45) mmHg ABG pO2 (83-108) mmHg ABG HCO3 (21-25) mmol/L ABG Total CO2 (19-24) mmol/L ABG O2 Saturation (94-97) % POC Glucose (mg/dL) 147 H 121 H 137 H (75-99) mg/dL 03/06/19 03/06/19 Range/Units 06:29 09:18 ABG pCO2 (35-45) mmHg ABG pO2 (83-108) mmHg ABG HCO3 (21-25) mmol/L ABG Total CO2 (19-24) mmol/L ABG O2 Saturation (94-97) % POC Glucose (mg/dL) 163 H 172 H (75-99) mg/dL Microbiology - Last 24 Hours (Table) 02/27/19 16:37 Blood Culture - Final Blood No Growth after 144 hours Assessment and Plan Plan: Metabolic and selective from CO2 narcosis and patient on BiPAP at this time . Patient on systemic steroids inhalational treatments. -Acute on chronic hypercapnic as well as hypercapnic respiratory failure secondary to COPD and further management as mentioned above 10 history of lung cancer status post chemoradiation in remission at this time on the left side left lung. -Type 2 diabetes mellitus next and have an hyperlipidemia -Hypertension -Acute renal failure: There is no repeat basic metabolic profile since last couple days mild repeated if patient is not hospice will probably [place] Lasix and lisinopril will be discontinued
[2019-03-06 12:12] LABS: Glucose,Whole Blood 194 mg/dL (75-99)
[2019-03-06] MEDS: SODIUM CHLORIDE 0.9% 1,000 ML IV SCH (12:46)
[2019-03-06 15:09] LABS: Glucose,Whole Blood 199 mg/dL (75-99)
--- NOTE | 2019-03-06 15:51 | P.PN ---
Subjective Progress Note Date: 03/06/19 83-year-old female patient came in for altered mentation with with CO2 narcosis. The patient's chronic hypoxic and hypercapnic respiratory failure. She has advanced COPD. She also has history of lung cancer that was treated through [facility] and she received a combination of chemoradiation therapy. Since then the patient has not had any significant or active follow- up. The patient came in with hypercapnic respiratory failure with a pH of 7.2 and a pCO2 of 92. She was placed on a BiPAP machine and I realized today that she is on a AVAPS mode on the BiPAP with a target tidal volume of 350. Earlier this morning, the patient had woken up. She is communicating. She is still con fused. She looks quite lethargic although more awake compared to yesterday. The repeat blood gases from today showed some improvement in her CO2 and her current pH is at 7.36 with a pCO2 of 78 and pO2 of 100 and this was done on an FiO2 of liters high flow. She does have some chronic lower extremity edema in addition. She has underlying with CAD. The chest x-ray that was done at the time of admission showed cardiomegaly and bilateral pleural effusion and pulmonary vascular congestion. Ultrasound the chest shows small pockets of fluid on the right , she is on DuoNeb the right seems [id number]. She is on a combination of Perforomist and Pulmicort nebulized treatments, she is on IV Lasix 40 mg every 12 hours and she is also on IV Solu-Medrol 40 mg every 6 hours. She was given IV Rocephin for a suspected UTI. On 03/02/2019 the patient is feeling slightly better compared to yesterday. She is off the BiPAP on 4 L of oxygen by nasal cannula. She is more alert and she is communicating and she was able to sit up on a chair at the bedside. Her edema lower extremities improved. She has a Mcintosh catheter in place and she is producing adequate amount of urine output while being on IV Lasix 40 mg every 24 hours. Creatinine stable at 1.5. She is on DuoNeb nebulized treatments [id number]. She remains on IV Solu-Medrol. She is on a combination of Perforomist and Pulmicort neb last treatment twice a day in addition to DuoNeb nebulized treatments around the clock. She is also on IV Rocephin. The blood gases from yesterday showed chronic compensated respiratory acidosis. Her white cell count is at 6.3. Serum bicarb is at 43 and creatinine is at 1.5. 03/03/2019 the patient is doing poorly. She is on a BiPAP at a pressure of 14/6 cm of water and her terminated tidal volumes in order of 50 mL. Her blood gases from yesterday showed chronic compensated respiratory acidosis with a pH of 7.38 and a pCO2 of 82 and pO2 of 72 and this was done and FiO2 of 40%. Her serum bicarbonate today's at 43. She is diuresing adequately with IV Lasix. Her BNP is a 54 with a creatinine of 1.5. She is quite lethargic. She is sleeping most of the time and she is wearing her BiPAP for now. She is a bit difficult to arouse. I think is in ongoing component of CO2 narcosis in this patient. Repeat blood gases will be needed. 05/05/2018 I'm seeing the patient for a follow-up. The patient struggled throughout the day today and yesterday on the BiPAP. She is lethargic. She is confused. She opens up her eyes andshe'll occasionally respond's to simple commands. For the most partshe seems to be altered and encephalopathic. She is still on the same BiPAP pressure of 14/6. I do appreciate some improvement in her air exchange and the patient's tidal volume generated on the BiPAP seems to be above 400 mL. Most recent blood gas that was done yesterday showed a pH of 7.46 with a pCO2 of 73 and pO2 of 102. The patient was diuresing well with IV Lasix. The patient was becoming alkalotic. I gave her 2 dose of Diamox yesterday and I'm going to obtain a follow-up blood gas today. In terms of her labs, her white cell count is at 6 with a hemoglobin of 11.5. Her serum bicarb at 45.based on the lack of ongoing improvement, there was some discussion made with the regarding hospice care. The patient's is having difficulty making it final decision. I think we should give the patient 24 hours and will have a final decision with the next 24 hours on her condition and plan of treatment On 03/06/2019, the patient is on 6 L of Oxymizer cannula with a pulse ox of 9091%. She is lethargic. She is arousable. She is communicating. She is following simple commands. Her progress has been very slow. The is really unsure whether he should proceed with hospice or continue for another few days with treatment. I have seen some improvement in her condition over the past 24 hours. I think is reasonable to continue the treatment for now and assess her condition and see her progress. She is requiring BiPAP 14/6 cm of water on off during the day. She has chronic hypoxic and hypercapnic respiratory failure. She is taken daily Lasix with excellent urine output. The fluid balance over the past 24 hours is been -4.2 L. Chest x-ray from today showed some no significant change and the patient is still has some bilateral e ffusions and bilateral airspace disease. Objective - Vital Signs Vital signs: Vital Signs Temp 98.2 F 03/06/19 14:58 Pulse 101 H 03/06/19 14:58 Resp 18 03/06/19 14:58 BP 145/72 03/06/19 14:58 Pulse Ox 89 L 03/06/19 14:58 Intake & Output 03/05/19 03/06/19 03/06/19 18:59 06:59 18:59 Intake Total 33.033 10.80 Output Total 1300 425 Balance -1266.967 -414.20 Weight 77 kg Intake: Intake, IV Titration 33.033 10.80 Amount Insulin Regular 100 unit 33.033 10.80 In Sodium Chloride 0.9% 100 ml @ Titrate IV .Q0M [facility] Rx#:[id number] Oral 0 Output: Urine 1300 425 Other: Voiding Method Indwelling Catheter Indwelling Catheter Indwelling Catheter - Exam the patient is lethargic, she is more arousable compared to yesterday currently on 6 L approximately nasal cannula. Head exam was generally normal. There was no scleral icterus or corneal arcus. Mucous membranes were moist. Neck was supple and without jugular venous distension, thyromegaly, or carotid bruits. Carotids were easily palpable bilaterally. There was no adenopathy. Lungs sounds are markedly diminished bilaterally. Air entry is significantly diminished and the patient is crackles in the lung bases and there is diminished breath on the right lung base along with some dullness to percussion. Cardiac exam revealed the PMI to be normally situated and sized. The rhythm was regular and no extrasystoles were noted during several minutes of auscultation. The first and second heart sounds were normal and physiologic splitting of the second heart sound was noted. There were no murmurs, rubs, clicks, or gallops. Abdominal exam revealed normal bowel sounds. The abdomen was soft, non-tender, and without masses, organomegaly, or appreciable enlargement of the abdominal aorta. Extremities are showing diminished pulses. There is chronic erythema in lower extremities bilaterally below the knees and the patient has trace edema lower extremity is bilaterally. No cyanosis. No clubbing.there is some improvement in lower extremity edema compared to yesterday. Neurologically the patient is quite lethargic but arousable - Labs CBC & Chem 7: 03/04/19 06:30 03/04/19 06:30 Labs: Abnormal Lab Results - Last 24 Hours (Table) 03/05/19 03/05/19 03/06/19 Range/Units 17:15 19:14 02:30 POC Glucose (mg/dL) 181 H 147 H 121 H (75-99) mg/dL 03/06/19 03/06/19 03/06/19 Range/Units 04:27 06:29 09:18 POC Glucose (mg/dL) 137 H 163 H 172 H (75-99) mg/dL 03/06/19 03/06/19 Range/Units 11:48 15:06 POC Glucose (mg/dL) 194 H 199 H (75-99) mg/dL Microbiology - Last 24 Hours (Table) 02/27/19 16:37 Blood Culture - Final Blood No Growth after 144 hours Assessment and Plan Plan: 1 altered mental status secondary to hypercapnic respiratory failure/CO2 narcosis. Continue utilizing BiPAP on and off during the day alternating with high flow oxygen 5-6 L per minute nasal cannula. Chest x-ray shows fluid overload and bilateral basilar infiltrates without any major interval change compared to yesterday. She is diuresing still adequately and she has been significant negative fluid balance. 2 chronic hypoxic respiratory failure, blood gases was noted and currently on BiPAP 3 chronic hypercapnic respiratory failure, blood gases from yesterday was noted, currently on BiPAP 4 acute on chronic hypercapnic respiratory failure with CO2 narcosis 5 history of lung cancer with previous chemoradiation therapy, follow-up CAT scan of the chest showed bilateral pleural effusions right more than left and that is no evidence of any spiculated lesion that was seen in the left upper lobe. 6 advanced COPD with chronic hypoxic respiratory failure 7 right-sided pleural effusion 8 chronic smoking 9 diabetes mellitus 7 hyperlipidemia 11 hypertension 12 macular degeneration 13 right lower extremity edema 14 impaired performance and functional status secondary to above-mentioned comorbidities. 15 acute kidney injury review to contrast and diuretics creatinine stable at 1.8 Plan Will need another set of labs to monitor the patient's renal function and the rest of the electrolytes Continue IV Lasix Keep the patient on flow oxygen and utilizes BiPAP overnight Hospice care if no improvement within next 24-48 hours.
[2019-03-06 15:59] LABS: Basophils % (A) 0 %; Eosinophils % (A) 1 %; HCT 38.1 % (34.0-46.0); HGB 11.7 gm/dL (11.4-16.0); Hypochromasia Marked; Lymphocytes # (A) 0.1 k/uL (1.0-4.8); Lymphocytes % (A) 3 %; MCHC 30.6 g/dL (31.0-37.0); MCV 101.2 fL (80.0-100.0); Mean Platelet Volume 9.3; Monocytes # (A) 0.2 k/uL (0-1.0); Monocytes % (A) 6 %; Neutrophils % (A) 91 %; Platelet Count 132 k/uL (150-450); RBC 3.76 m/uL (3.80-5.40); RDW 12.9 % (11.5-15.5); WBC 4.4 k/uL (3.8-10.6)
[2019-03-06 16:48] LABS: Calcium 8.4 mg/dL (8.4-10.2); Potassium 3.1 mmol/L (3.5-5.1)
[2019-03-06] MEDS: INSULIN REGULAR 100 UNIT in SODIUM CHLORIDE 0.9% 100 ML IV SCH (17:17)
[2019-03-06 17:28] LABS: Glucose,Whole Blood 305 mg/dL (75-99)
[2019-03-06] MEDS ORDERED: LIDOCAINE 2% INJ 20 MG/ML (20 ML MDV) SQ STA (18:17)
[2019-03-06 19:07] LABS: Glucose,Whole Blood 228 mg/dL (75-99)
[2019-03-06 21:05] LABS: Glucose,Whole Blood 194 mg/dL (75-99)
[2019-03-06 23:01] LABS: Glucose,Whole Blood 226 mg/dL (75-99)
[2019-03-07] MEDS: methylPREDNISolone SOD SUCCI 40 MG/ML 1 ML VIAL IV SCH ×5 (01:01→23:10)
[2019-03-07] MEDS: HEPARIN SODIUM,PORCINE 5,000 UNIT/ML 1 ML VIAL SQ SCH ×4 (01:01→23:07)
[2019-03-07 01:05] LABS: Glucose,Whole Blood 197 mg/dL (75-99)
[2019-03-07 02:58] LABS: Glucose,Whole Blood 180 mg/dL (75-99)
[2019-03-07] MEDS: LORazepam 2 MG/ML INJ IV PRN (04:51)
[2019-03-07 04:55] LABS: Glucose,Whole Blood 165 mg/dL (75-99)
[2019-03-07 06:14] LABS: HCT 33.6 % (34.0-46.0); HGB 10.4 gm/dL (11.4-16.0); Hypochromasia Marked; MCH 31.1 pg (25.0-35.0); MCV 100.4 fL (80.0-100.0); Mean Platelet Volume 8.4; Platelet Count 127 k/uL (150-450); RBC 3.35 m/uL (3.80-5.40); WBC 4.5 k/uL (3.8-10.6)
[2019-03-07 06:27] LABS: Calcium 8.3 mg/dL (8.4-10.2); Potassium 3.2 mmol/L (3.5-5.1)
[2019-03-07 07:17] LABS: Glucose,Whole Blood 191 mg/dL (75-99)
[2019-03-07] MEDS: FORMOTEROL FUMARATE 20 MCG/2 ML NEBU INHALATION SCH ×2 (07:22→19:19)
[2019-03-07] MEDS: IPRATROPIUM-ALBUTEROL 3 ML NEB INHALATION SCH ×4 (07:22→19:19)
[2019-03-07] MEDS: BUDESONIDE 1 MG/2 ML NEBU INHALATION SCH ×2 (07:22→19:19)
[2019-03-07] MEDS: PANTOPRAZOLE 40 MG TABLET PO SCH (08:19)
[2019-03-07] MEDS: FUROSEMIDE 10 MG/ML 4 ML VIAL IV SCH (08:19)
[2019-03-07] MEDS: METOPROLOL TARTRATE 25 MG TAB PO SCH ×2 (08:19→20:55)
[2019-03-07] MEDS: ATORVASTATIN 20 MG TAB PO SCH (08:19)
[2019-03-07] MEDS: LISINOPRIL 5 MG TAB PO SCH (08:19)
[2019-03-07] MEDS: ASPIRIN 81 MG PO SCH (08:19)
[2019-03-07] MEDS: INSULIN ASPART (NovoLOG) 100 UNIT/ML VIAL SQ SCH ×3 (08:20→17:33)
[2019-03-07 08:58] LABS: Glucose,Whole Blood 191 mg/dL (75-99)
[2019-03-07 11:00] LABS: Glucose,Whole Blood 352 mg/dL (75-99)
--- NOTE | 2019-03-07 11:40 | P.PN ---
Subjective 83-year-old female was admitted for altered mental status secondary to CO2 narcosis. Patient has advanced COPD and patient is on BiPAP since her adm ission. Without any significant improvement patient sharath on BiPAP. And lengthy discussion with the considering her advanced COPD and in spite of aggressive therapy patient clinical condition did not change much and remains on BiPAP. After discussion with the who is agreeable to discuss hospice care, hospice services were consulted. 03/07/2019 Patient is actually feeling better was a week was able to eat some breakfast with little help patient yesterday had a laceration of the right hand has right hand is swollen and her skin is paper thin because of which we can do any sut ures. Apply pressure dressing. She is presently on aspirin and oxygen chest x- ray did show pulmonary edema patient does have extensive peripheral edema. Patient was started on Lasix which led to hyponatremia hypokalemia hyperchloremia and contraction alkalosis Review of systems: Unable to obtain due to her clinical condition. But the patient did not have had that she is okay All inpatient medications were reviewed and appropriate changes in these medications as dictated in the interval history and assessment and plan. Objective - Vital Signs Vital signs: Vital Signs Temp 97.9 F 03/07/19 08:00 Pulse 86 03/07/19 11:26 Resp 18 03/07/19 08:00 BP 142/63 03/07/19 08:00 Pulse Ox 98 03/07/19 08:00 Intake & Output 03/06/19 03/07/19 03/07/19 18:59 06:59 18:59 Intake Total 0.042 49.351 11.10 Output Total 1000 178 800 Balance -999.958 -128.649 -788.90 Weight 77.5 kg Intake: Intake, IV Titration 0.042 49.351 11.10 Amount Insulin Regular 100 unit 0.042 49.351 11.10 In Sodium Chloride 0.9% 100 ml @ Titrate IV .Q0M [facility] Rx#:[id number] Output: Urine 1000 150 800 Post Void Residual 28 Other: Voiding Method Indwelling Catheter Indwelling Catheter Indwelling Catheter - Exam PHYSICAL EXAMINATION: GENERAL: A week able to answer some questions feels better patient is an asked cannula oxygen HEENT: Pupils are round and equally reacting to light. EOMI. No scleral icterus. No conjunctival pallor. Normocephalic, atraumatic. No pharyngeal erythema. No thyromegaly. CARDIOVASCULAR: S1 and S2 present. No murmurs, rubs, or gallops. PULMONARY: Fairly good air entry bilateral lung fitzgerald no wheezing was appreciated no crackles were appreciated. ABDOMEN: Soft, nontender, nondistended, normoactive bowel sounds. No palpable organomegaly. MUSCULOSKELETAL: No joint swelling or deformity. EXTREMITIES: No cyanosis, clubbing, extensive bilateral upper extremity edema some edema in the lower legs as well NEUROLOGICAL: Able to assess SKIN: No rashes. - Labs CBC & Chem 7: 03/07/19 05:33 03/07/19 05:33 Labs: Abnormal Lab Results - Last 24 Hours (Table) 03/06/19 03/06/19 03/06/19 Range/Units 11:48 15:06 15:45 RBC 3.76 L (3.80-5.40) m/uL Hgb (11.4-16.0) gm/dL Hct (34.0-46.0) % MCV 101.2 H (80.0-100.0) fL MCHC 30.6 L (31.0-37.0) g/dL Plt Count 132 L (150-450) k/uL Lymphocytes # 0.1 L (1.0-4.8) k/uL Sodium (137-145) mmol/L Potassium (3.5-5.1) mmol/L Carbon Dioxide (22-30) mmol/L BUN (7-17) mg/dL Creatinine (0.52-1.04) mg/dL Glucose (74-99) mg/dL POC Glucose (mg/dL) 194 H 199 H (75-99) mg/dL Calcium (8.4-10.2) mg/dL 03/06/19 03/06/19 03/06/19 Range/Units 15:45 17:16 19:04 RBC (3.80-5.40) m/uL Hgb (11.4-16.0) gm/dL Hct (34.0-46.0) % MCV (80.0-100.0) fL MCHC (31.0-37.0) g/dL Plt Count (150-450) k/uL Lymphocytes # (1.0-4.8) k/uL Sodium 149 H (137-145) mmol/L Potassium 3.1 L (3.5-5.1) mmol/L Carbon Dioxide 46 H* (22-30) mmol/L BUN 59 H (7-17) mg/dL Creatinine 1.59 H (0.52-1.04) mg/dL Glucose 229 H (74-99) mg/dL POC Glucose (mg/dL) 305 H 228 H (75-99) mg/dL Calcium (8.4-10.2) mg/dL 03/06/19 03/06/19 03/07/19 Range/Units 21:00 22:58 01:02 RBC (3.80-5.40) m/uL Hgb (11.4-16.0) gm/dL Hct (34.0-46.0) % MCV (80.0-100.0) fL MCHC (31.0-37.0) g/dL Plt Count (150-450) k/uL Lymphocytes # (1.0-4.8) k/uL Sodium (137-145) mmol/L Potassium (3.5-5.1) mmol/L Carbon Dioxide (22-30) mmol/L BUN (7-17) mg/dL Creatinine (0.52-1.04) mg/dL Glucose (74-99) mg/dL POC Glucose (mg/dL) 194 H 226 H 197 H (75-99) mg/dL Calcium (8.4-10.2) mg/dL 03/07/19 03/07/19 03/07/19 Range/Units 02:56 04:53 05:33 RBC 3.35 L (3.80-5.40) m/uL Hgb 10.4 L (11.4-16.0) gm/dL Hct 33.6 L (34.0-46.0) % MCV 100.4 H (80.0-100.0) fL MCHC (31.0-37.0) g/dL Plt Count 127 L (150-450) k/uL Lymphocytes # (1.0-4.8) k/uL Sodium (137-145) mmol/L Potassium (3.5-5.1) mmol/L Carbon Dioxide (22-30) mmol/L BUN (7-17) mg/dL Creatinine (0.52-1.04) mg/dL Glucose (74-99) mg/dL POC Glucose (mg/dL) 180 H 165 H (75-99) mg/dL Calcium (8.4-10.2) mg/dL 03/07/19 03/07/19 03/07/19 Range/Units 05:33 07:15 08:57 RBC (3.80-5.40) m/uL Hgb (11.4-16.0) gm/dL Hct (34.0-46.0) % MCV (80.0-100.0) fL MCHC (31.0-37.0) g/dL Plt Count (150-450) k/uL Lymphocytes # (1.0-4.8) k/uL Sodium 151 H (137-145) mmol/L Potassium 3.2 L (3.5-5.1) mmol/L Carbon Dioxide 50 H* (22-30) mmol/L BUN 62 H (7-17) mg/dL Creatinine 1.59 H (0.52-1.04) mg/dL Glucose 176 H (74-99) mg/dL POC Glucose (mg/dL) 191 H 191 H (75-99) mg/dL Calcium 8.3 L (8.4-10.2) mg/dL 03/07/19 Range/Units 10:58 RBC (3.80-5.40) m/uL Hgb (11.4-16.0) gm/dL Hct (34.0-46.0) % MCV (80.0-100.0) fL MCHC (31.0-37.0) g/dL Plt Count (150-450) k/uL Lymphocytes # (1.0-4.8) k/uL Sodium (137-145) mmol/L Potassium (3.5-5.1) mmol/L Carbon Dioxide (22-30) mmol/L BUN (7-17) mg/dL Creatinine (0.52-1.04) mg/dL Glucose (74-99) mg/dL POC Glucose (mg/dL) 352 H (75-99) mg/dL Calcium (8.4-10.2) mg/dL Assessment and Plan Plan: Metabolic and selective from CO2 narcosis and patient on BiPAP at this time . Patient on systemic steroids inhalational treatments. Congestive heart failure chronic diastolic dysfunction with acute exacerbation: Patient is on IV Lasix -Hyponatremia secondary to IV Lasix intravascular volume depletion -Hypokalemia secondary to Lasix which will be replaced -Contraction alkalosis secondary to Lasix intravascular depletion -Laceration of the right hand secondary to edema local wound care pressure dressing -Acute on chronic hypercapnic as well as hypercapnic respiratory failure secondary to COPD and further management as mentioned above 10 history of lung cancer status post chemoradiation in remission at this time on the left side left lung. -Type 2 diabetes mellitus next and have an hyperlipidemia -Hypertension -Acute renal failure: Appears to be secondary to heart failure exacerbation prerenal azotemia from that can you to hold off on lisinopril
[2019-03-07] MEDS: SODIUM CHLORIDE 0.9% 1,000 ML IV SCH (12:15)
[2019-03-07 13:06] LABS: Glucose,Whole Blood 381 mg/dL (75-99)
--- NOTE | 2019-03-07 14:39 | P.GSCN ---
History of Present Illness Consult date: 03/07/19 History of present illness: this 83-year-old female with multiple medical comorbidities who is in the hospital for COPD exacerbation. last night there was a hematoma noted on her right dorsal hand. There was also a skin tear laceration noted. This apparently was bleeding. Pressure dressing was applied and hemostasis was achieved. General surgery was consulted regarding laceration and hematoma. Past Medical History Past Medical History: Asthma, Cancer, COPD, Diabetes Mellitus, Hyperlipidemia, Hypertension, Osteoarthritis (OA) Additional Past Medical History / Comment(s): LUNG CANCER-LEFT LUNG, PAIN IN FEET , MACULAR DEGENERATION, EDEMA IN LEG, kidney disease History of Any Multi-Drug Resistant Organisms: None Reported Past Surgical History: Appendectomy, Hernia Repair, Joint Replacement Additional Past Surgical History / Comment(s): UMBILICAL HERNIA, LEFT KNEE REPLACEMENT Past Anesthesia/Blood Transfusion Reactions: No Reported Reaction Past Psychological History: Anxiety Smoking Status: Former smoker Past Alcohol Use History: None Reported Past Drug Use History: None Reported - Past Family History Mother Family Medical History: No Reported History Additional Family Medical History / Comment(s): NO KNOWN HISTORY- ADOPTED Medications and Allergies Home Medications Medication Instructions Recorded Confirmed Type Aspirin 81 mg PO DAILY 12/23/13 03/01/19 History Atorvastatin [Lipitor] 20 mg PO DAILY 12/23/13 03/01/19 History INSULIN ASPART (NovoLOG) [NovoLOG See Protocol INJ ACHS MDD 20 UNITS 12/23/13 03/01/19 History (formulary)] Insulin Glargine [Lantus] 17 units SQ HS 12/23/13 03/01/19 History Multivitamins, Thera [Multivitamin 1 tab PO DAILY 12/23/13 03/01/19 History (formulary)] Lisinopril [Zestril] 5 mg PO BID #180 tablet 05/16/16 03/01/19 Rx Metoprolol Tartrate [Lopressor] 50 mg PO BID-W/MEALS 09/01/18 03/01/19 History Albuterol Nebulized [Ventolin 2.5 mg INHALATION RT-Q6H PRN 03/01/19 03/01/19 History Nebulized] Bumetanide 2 mg PO DAILY 03/01/19 03/01/19 History Allergies Allergy/AdvReac Type Severity Reaction Status Date / Time No Known Allergies Allergy Verified 09/22/18 17:54 Surgical - Exam Osteopathic Statement: *. No significant issues noted on an osteopathic structural exam other than those noted in the History and Physical/Consult. Vital Signs Pulse Resp BP Pulse Ox 90 16 108/57 81 L 02/27/19 10:44 02/27/19 10:44 02/27/19 10:44 02/27/19 10:44 - General no distress, cachectic, chronically ill - Eyes PERRL - Neck trachea midline - Respiratory normal expansion - Cardiovascular Rhythm: regular - Abdomen Abdomen: soft, non tender - Integumentary hematoma on right hand. 2 cm laceration on dorsal right hand. No active bleeding. Good capillary refill Results - Labs 03/07/19 05:33 03/07/19 05:33 Abnormal Lab Results - Last 24 Hours (Table) 03/06/19 03/06/19 03/06/19 Range/Units 15:06 15:45 15:45 RBC 3.76 L (3.80-5.40) m/uL Hgb (11.4-16.0) gm/dL Hct (34.0-46.0) % MCV 101.2 H (80.0-100.0) fL MCHC 30.6 L (31.0-37.0) g/dL Plt Count 132 L (150-450) k/uL Lymphocytes # 0.1 L (1.0-4.8) k/uL Sodium 149 H (137-145) mmol/L Potassium 3.1 L (3.5-5.1) mmol/L Carbon Dioxide 46 H* (22-30) mmol/L BUN 59 H (7-17) mg/dL Creatinine 1.59 H (0.52-1.04) mg/dL Glucose 229 H (74-99) mg/dL POC Glucose (mg/dL) 199 H (75-99) mg/dL Calcium (8.4-10.2) mg/dL 03/06/19 03/06/19 03/06/19 Range/Units 17:16 19:04 21:00 RBC (3.80-5.40) m/uL Hgb (11.4-16.0) gm/dL Hct (34.0-46.0) % MCV (80.0-100.0) fL MCHC (31.0-37.0) g/dL Plt Count (150-450) k/uL Lymphocytes # (1.0-4.8) k/uL Sodium (137-145) mmol/L Potassium (3.5-5.1) mmol/L Carbon Dioxide (22-30) mmol/L BUN (7-17) mg/dL Creatinine (0.52-1.04) mg/dL Glucose (74-99) mg/dL POC Glucose (mg/dL) 305 H 228 H 194 H (75-99) mg/dL Calcium (8.4-10.2) mg/dL 03/06/19 03/07/19 03/07/19 Range/Units 22:58 01:02 02:56 RBC (3.80-5.40) m/uL Hgb (11.4-16.0) gm/dL Hct (34.0-46.0) % MCV (80.0-100.0) fL MCHC (31.0-37.0) g/dL Plt Count (150-450) k/uL Lymphocytes # (1.0-4.8) k/uL Sodium (137-145) mmol/L Potassium (3.5-5.1) mmol/L Carbon Dioxide (22-30) mmol/L BUN (7-17) mg/dL Creatinine (0.52-1.04) mg/dL Glucose (74-99) mg/dL POC Glucose (mg/dL) 226 H 197 H 180 H (75-99) mg/dL Calcium (8.4-10.2) mg/dL 03/07/19 03/07/19 03/07/19 Range/Units 04:53 05:33 05:33 RBC 3.35 L (3.80-5.40) m/uL Hgb 10.4 L (11.4-16.0) gm/dL Hct 33.6 L (34.0-46.0) % MCV 100.4 H (80.0-100.0) fL MCHC (31.0-37.0) g/dL Plt Count 127 L (150-450) k/uL Lymphocytes # (1.0-4.8) k/uL Sodium 151 H (137-145) mmol/L Potassium 3.2 L (3.5-5.1) mmol/L Carbon Dioxide 50 H* (22-30) mmol/L BUN 62 H (7-17) mg/dL Creatinine 1.59 H (0.52-1.04) mg/dL Glucose 176 H (74-99) mg/dL POC Glucose (mg/dL) 165 H (75-99) mg/dL Calcium 8.3 L (8.4-10.2) mg/dL 03/07/19 03/07/19 03/07/19 Range/Units 07:15 08:57 10:58 RBC (3.80-5.40) m/uL Hgb (11.4-16.0) gm/dL Hct (34.0-46.0) % MCV (80.0-100.0) fL MCHC (31.0-37.0) g/dL Plt Count (150-450) k/uL Lymphocytes # (1.0-4.8) k/uL Sodium (137-145) mmol/L Potassium (3.5-5.1) mmol/L Carbon Dioxide (22-30) mmol/L BUN (7-17) mg/dL Creatinine (0.52-1.04) mg/dL Glucose (74-99) mg/dL POC Glucose (mg/dL) 191 H 191 H 352 H (75-99) mg/dL Calcium (8.4-10.2) mg/dL 03/07/19 Range/Units 13:05 RBC (3.80-5.40) m/uL Hgb (11.4-16.0) gm/dL Hct (34.0-46.0) % MCV (80.0-100.0) fL MCHC (31.0-37.0) g/dL Plt Count (150-450) k/uL Lymphocytes # (1.0-4.8) k/uL Sodium (137-145) mmol/L Potassium (3.5-5.1) mmol/L Carbon Dioxide (22-30) mmol/L BUN (7-17) mg/dL Creatinine (0.52-1.04) mg/dL Glucose (74-99) mg/dL POC Glucose (mg/dL) 381 H (75-99) mg/dL Calcium (8.4-10.2) mg/dL Diabetes panel 03/06/19 03/07/19 Range/Units 15:45 05:33 Sodium 149 H 151 H (137-145) mmol/L Potassium 3.1 L 3.2 L (3.5-5.1) mmol/L Chloride 99 101 (98-107) mmol/L Carbon Dioxide 46 H* 50 H* (22-30) mmol/L BUN 59 H 62 H (7-17) mg/dL Creatinine 1.59 H 1.59 H (0.52-1.04) mg/dL Glucose 229 H 176 H (74-99) mg/dL Calcium 8.4 8.3 L (8.4-10.2) mg/dL Calcium panel 03/06/19 03/07/19 Range/Units 15:45 05:33 Calcium 8.4 8.3 L (8.4-10.2) mg/dL Pituitary panel 03/06/19 03/07/19 Range/Units 15:45 05:33 Sodium 149 H 151 H (137-145) mmol/L Potassium 3.1 L 3.2 L (3.5-5.1) mmol/L Chloride 99 101 (98-107) mmol/L Carbon Dioxide 46 H* 50 H* (22-30) mmol/L BUN 59 H 62 H (7-17) mg/dL Creatinine 1.59 H 1.59 H (0.52-1.04) mg/dL Glucose 229 H 176 H (74-99) mg/dL Calcium 8.4 8.3 L (8.4-10.2) mg/dL Adrenal panel 03/06/19 03/07/19 Range/Units 15:45 05:33 Sodium 149 H 151 H (137-145) mmol/L Potassium 3.1 L 3.2 L (3.5-5.1) mmol/L Chloride 99 101 (98-107) mmol/L Carbon Dioxide 46 H* 50 H* (22-30) mmol/L BUN 59 H 62 H (7-17) mg/dL Creatinine 1.59 H 1.59 H (0.52-1.04) mg/dL Glucose 229 H 176 H (74-99) mg/dL Calcium 8.4 8.3 L (8.4-10.2) mg/dL Assessment and Plan Assessment: hematoma right hand and laceration right hand Plan: patient has very thin skin. This is not amenable to suture repair at this time. There is no active bleeding at this time. Recommend continued dressings as needed. Capillary refill is intact distally. No plans for surgical intervention please contact me directly with any further concerns
[2019-03-07 15:01] LABS: Glucose,Whole Blood 378 mg/dL (75-99)
--- NOTE | 2019-03-07 15:11 | P.PN ---
Subjective Progress Note Date: 03/07/19 83-year-old female patient came in for altered mentation with with CO2 narcosis. The patient's chronic hypoxic and hypercapnic respiratory failure. She has advanced COPD. She also has history of lung cancer that was treated through [facility] and she received a combination of chemoradiation therapy. Since then the patient has not had any significant or active follow- up. The patient came in with hypercapnic respiratory failure with a pH of 7.2 and a pCO2 of 92. She was placed on a BiPAP machine and I realized today that she is on a AVAPS mode on the BiPAP with a target tidal volume of 350. Earlier this morning, the patient had woken up. She is communicating. She is still con fused. She looks quite lethargic although more awake compared to yesterday. The repeat blood gases from today showed some improvement in her CO2 and her current pH is at 7.36 with a pCO2 of 78 and pO2 of 100 and this was done on an FiO2 of liters high flow. She does have some chronic lower extremity edema in addition. She has underlying with CAD. The chest x-ray that was done at the time of admission showed cardiomegaly and bilateral pleural effusion and pulmonary vascular congestion. Ultrasound the chest shows small pockets of fluid on the right , she is on DuoNeb the right seems [id number]. She is on a combination of Perforomist and Pulmicort nebulized treatments, she is on IV Lasix 40 mg every 12 hours and she is also on IV Solu-Medrol 40 mg every 6 hours. She was given IV Rocephin for a suspected UTI. On 03/02/2019 the patient is feeling slightly better compared to yesterday. She is off the BiPAP on 4 L of oxygen by nasal cannula. She is more alert and she is communicating and she was able to sit up on a chair at the bedside. Her edema lower extremities improved. She has a Mcintosh catheter in place and she is producing adequate amount of urine output while being on IV Lasix 40 mg every 24 hours. Creatinine stable at 1.5. She is on DuoNeb nebulized treatments [id number]. She remains on IV Solu-Medrol. She is on a combination of Perforomist and Pulmicort neb last treatment twice a day in addition to DuoNeb nebulized treatments around the clock. She is also on IV Rocephin. The blood gases from yesterday showed chronic compensated respiratory acidosis. Her white cell count is at 6.3. Serum bicarb is at 43 and creatinine is at 1.5. 03/03/2019 the patient is doing poorly. She is on a BiPAP at a pressure of 14/6 cm of water and her terminated tidal volumes in order of 50 mL. Her blood gases from yesterday showed chronic compensated respiratory acidosis with a pH of 7.38 and a pCO2 of 82 and pO2 of 72 and this was done and FiO2 of 40%. Her serum bicarbonate today's at 43. She is diuresing adequately with IV Lasix. Her BNP is a 54 with a creatinine of 1.5. She is quite lethargic. She is sleeping most of the time and she is wearing her BiPAP for now. She is a bit difficult to arouse. I think is in ongoing component of CO2 narcosis in this patient. Repeat blood gases will be needed. 05/05/2018 I'm seeing the patient for a follow-up. The patient struggled throughout the day today and yesterday on the BiPAP. She is lethargic. She is confused. She opens up her eyes andshe'll occasionally respond's to simple commands. For the most partshe seems to be altered and encephalopathic. She is still on the same BiPAP pressure of 14/6. I do appreciate some improvement in her air exchange and the patient's tidal volume generated on the BiPAP seems to be above 400 mL. Most recent blood gas that was done yesterday showed a pH of 7.46 with a pCO2 of 73 and pO2 of 102. The patient was diuresing well with IV Lasix. The patient was becoming alkalotic. I gave her 2 dose of Diamox yesterday and I'm going to obtain a follow-up blood gas today. In terms of her labs, her white cell count is at 6 with a hemoglobin of 11.5. Her serum bicarb at 45.based on the lack of ongoing improvement, there was some discussion made with the regarding hospice care. The patient's is having difficulty making it final decision. I think we should give the patient 24 hours and will have a final decision with the next 24 hours on her condition and plan of treatment On 03/06/2019, the patient is on 6 L of Oxymizer cannula with a pulse ox of 9091%. She is lethargic. She is arousable. She is communicating. She is following simple commands. Her progress has been very slow. The is really unsure whether he should proceed with hospice or continue for another few days with treatment. I have seen some improvement in her condition over the past 24 hours. I think is reasonable to continue the treatment for now and assess her condition and see her progress. She is requiring BiPAP 14/6 cm of water on off during the day. She has chronic hypoxic and hypercapnic respiratory failure. She is taken daily Lasix with excellent urine output. The fluid balance over the past 24 hours is been -4.2 L. Chest x-ray from today showed some no significant change and the patient is still has some bilateral e ffusions and bilateral airspace disease. 03/06/2019 the patient 5 L of oxygen by nasal cannula. She is lethargic. She is still very much sleepy and she gets on and off episodes of CO2 narcosis. She is on BiPAP at a pressure of 14/6 overnight. She was receiving IV Lasix and on today's evaluation she developed significant hyperchloremic hypernatremia sodium level is up to 151. Based on all this, I'm going to stop the Lasix and I'm going to replace that with D5 water. She is not much improved. The family is considering hospice. Reviewing her old CAT scan that is at the pleural effusion and I'm considering repeating the CAT scan for questionable thoracentesis if there is any benefit prior to her being labeled for hospice care. Objective - Vital Signs Vital signs: Vital Signs Temp 98.6 F 03/07/19 14:56 Pulse 96 03/07/19 14:56 Resp 16 03/07/19 14:56 BP 133/63 03/07/19 14:56 Pulse Ox 95 03/07/19 14:56 Intake & Output 03/06/19 03/07/19 03/07/19 18:59 06:59 18:59 Intake Total 0.042 49.351 21.517 Output Total 1000 178 800 Balance -999.958 -128.649 -778.483 Weight 77.5 kg Intake: Intake, IV Titration 0.042 49.351 21.517 Amount Insulin Regular 100 unit 0.042 49.351 21.517 In Sodium Chloride 0.9% 100 ml @ Titrate IV .Q0M [facility] Rx#:[id number] Output: Urine 1000 150 800 Post Void Residual 28 Other: Voiding Method Indwelling Catheter Indwelling Catheter Indwelling Catheter - Exam the patient is lethargic, she is more arousable compared to yesterday currently on 6 L approximately nasal cannula. Head exam was generally normal. There was no scleral icterus or corneal arcus. Mucous membranes were moist. Neck was supple and without jugular venous distension, thyromegaly, or carotid bruits. Carotids were easily palpable bilaterally. There was no adenopathy. Lungs sounds are markedly diminished bilaterally. Air entry is significantly diminished and the patient is crackles in the lung bases and there is diminished breath on the right lung base along with some dullness to percussion. Cardiac exam revealed the PMI to be normally situated and sized. The rhythm was regular and no extrasystoles were noted during several minutes of auscultation. The first and second heart sounds were normal and physiologic splitting of the second heart sound was noted. There were no murmurs, rubs, clicks, or gallops. Abdominal exam revealed normal bowel sounds. The abdomen was soft, non-tender, and without masses, organomegaly, or appreciable enlargement of the abdominal aorta. Extremities are showing diminished pulses. There is chronic erythema in lower extremities bilaterally below the knees and the patient has trace edema lower extremity is bilaterally. No cyanosis. No clubbing.there is some improvement in lower extremity edema compared to yesterday. Neurologically the patient is quite lethargic but arousable - Labs CBC & Chem 7: 03/07/19 05:33 03/07/19 05:33 Labs: Abnormal Lab Results - Last 24 Hours (Table) 03/06/19 03/06/19 03/06/19 Range/Units 15:06 15:45 15:45 RBC 3.76 L (3.80-5.40) m/uL Hgb (11.4-16.0) gm/dL Hct (34.0-46.0) % MCV 101.2 H (80.0-100.0) fL MCHC 30.6 L (31.0-37.0) g/dL Plt Count 132 L (150-450) k/uL Lymphocytes # 0.1 L (1.0-4.8) k/uL Sodium 149 H (137-145) mmol/L Potassium 3.1 L (3.5-5.1) mmol/L Carbon Dioxide 46 H* (22-30) mmol/L BUN 59 H (7-17) mg/dL Creatinine 1.59 H (0.52-1.04) mg/dL Glucose 229 H (74-99) mg/dL POC Glucose (mg/dL) 199 H (75-99) mg/dL Calcium (8.4-10.2) mg/dL 03/06/19 03/06/19 03/06/19 Range/Units 17:16 19:04 21:00 RBC (3.80-5.40) m/uL Hgb (11.4-16.0) gm/dL Hct (34.0-46.0) % MCV (80.0-100.0) fL MCHC (31.0-37.0) g/dL Plt Count (150-450) k/uL Lymphocytes # (1.0-4.8) k/uL Sodium (137-145) mmol/L Potassium (3.5-5.1) mmol/L Carbon Dioxide (22-30) mmol/L BUN (7-17) mg/dL Creatinine (0.52-1.04) mg/dL Glucose (74-99) mg/dL POC Glucose (mg/dL) 305 H 228 H 194 H (75-99) mg/dL Calcium (8.4-10.2) mg/dL 03/06/19 03/07/19 03/07/19 Range/Units 22:58 01:02 02:56 RBC (3.80-5.40) m/uL Hgb (11.4-16.0) gm/dL Hct (34.0-46.0) % MCV (80.0-100.0) fL MCHC (31.0-37.0) g/dL Plt Count (150-450) k/uL Lymphocytes # (1.0-4.8) k/uL Sodium (137-145) mmol/L Potassium (3.5-5.1) mmol/L Carbon Dioxide (22-30) mmol/L BUN (7-17) mg/dL Creatinine (0.52-1.04) mg/dL Glucose (74-99) mg/dL POC Glucose (mg/dL) 226 H 197 H 180 H (75-99) mg/dL Calcium (8.4-10.2) mg/dL 03/07/19 03/07/19 03/07/19 Range/Units 04:53 05:33 05:33 RBC 3.35 L (3.80-5.40) m/uL Hgb 10.4 L (11.4-16.0) gm/dL Hct 33.6 L (34.0-46.0) % MCV 100.4 H (80.0-100.0) fL MCHC (31.0-37.0) g/dL Plt Count 127 L (150-450) k/uL Lymphocytes # (1.0-4.8) k/uL Sodium 151 H (137-145) mmol/L Potassium 3.2 L (3.5-5.1) mmol/L Carbon Dioxide 50 H* (22-30) mmol/L BUN 62 H (7-17) mg/dL Creatinine 1.59 H (0.52-1.04) mg/dL Glucose 176 H (74-99) mg/dL POC Glucose (mg/dL) 165 H (75-99) mg/dL Calcium 8.3 L (8.4-10.2) mg/dL 03/07/19 03/07/19 03/07/19 Range/Units 07:15 08:57 10:58 RBC (3.80-5.40) m/uL Hgb (11.4-16.0) gm/dL Hct (34.0-46.0) % MCV (80.0-100.0) fL MCHC (31.0-37.0) g/dL Plt Count (150-450) k/uL Lymphocytes # (1.0-4.8) k/uL Sodium (137-145) mmol/L Potassium (3.5-5.1) mmol/L Carbon Dioxide (22-30) mmol/L BUN (7-17) mg/dL Creatinine (0.52-1.04) mg/dL Glucose (74-99) mg/dL POC Glucose (mg/dL) 191 H 191 H 352 H (75-99) mg/dL Calcium (8.4-10.2) mg/dL 03/07/19 03/07/19 Range/Units 13:05 14:59 RBC (3.80-5.40) m/uL Hgb (11.4-16.0) gm/dL Hct (34.0-46.0) % MCV (80.0-100.0) fL MCHC (31.0-37.0) g/dL Plt Count (150-450) k/uL Lymphocytes # (1.0-4.8) k/uL Sodium (137-145) mmol/L Potassium (3.5-5.1) mmol/L Carbon Dioxide (22-30) mmol/L BUN (7-17) mg/dL Creatinine (0.52-1.04) mg/dL Glucose (74-99) mg/dL POC Glucose (mg/dL) 381 H 378 H (75-99) mg/dL Calcium (8.4-10.2) mg/dL Assessment and Plan Plan: 1 altered mental status secondary to hypercapnic respiratory failure/CO2 narcosis. Continue utilizing BiPAP on and off during the day alternating with high flow oxygen 5-6 L per minute nasal cannula. Chest x-ray shows fluid overload and bilateral basilar infiltrates without any major interval change compared to yesterday. She is diuresing still adequately and she has been significant negative fluid balance. The result, the patient developed some hyperchloremic hypernatremia 2 chronic hypoxic respiratory failure, blood gases was noted and currently on BiPAP 3 chronic hypercapnic respiratory failure, blood gases from yesterday was noted, currently on BiPAP 4 acute on chronic hypercapnic respiratory failure with CO2 narcosis 5 history of lung cancer with previous chemoradiation therapy, follow-up CAT scan of the chest showed bilateral pleural effusions right more than left and that is no evidence of any spiculated lesion that was seen in the left upper lobe. 6 advanced COPD with chronic hypoxic respiratory failure 7 right-sided pleural effusion 8 chronic smoking 9 diabetes mellitus 7 hyperlipidemia 11 hypertension 12 macular degeneration 13 right lower extremity edema 14 impaired performance and functional status secondary to above-mentioned comorbidities. 15 acute kidney injury review to contrast and diuretics creatinine stable at 1.5 16 hyperchloremic hypernatremia secondary to aggressive diuresis. Plan Stop Lasix, D5 water at the rate of 75 mL an hour, CAT scan of the chest chest, consider hospice care if there is no sizable effusion that can be drained.
[2019-03-07] MEDS: DEXTROSE 5% IN WATER 1,000 ML IV SCH (16:35)
[2019-03-07] MEDS: INSULIN REGULAR 100 UNIT in SODIUM CHLORIDE 0.9% 100 ML IV SCH (16:36)
[2019-03-07 17:05] LABS: Glucose,Whole Blood 307 mg/dL (75-99)
--- NOTE | 2019-03-07 17:39 | CT ---
EXAMINATION TYPE: CT chest wo con DATE OF EXAM: 03/07/2019 COMPARISON: Chest CT 6 days ago. Chest x-ray from yesterday and older studies. HISTORY: Pleural effusion. History of lung cancer. CT DLP: 666.2 mGycm. Automated Exposure Control for Dose Reduction was Utilized. TECHNIQUE: CT scan of the thorax is performed without IV contrast. FINDINGS: LUNGS: Underlying moderate to advanced emphysematous changes redemonstrated. There is persistent mode rate-sized right pleural effusion and moderate-sized left pleural effusion with associated bibasilar compressive atelectasis. Sizable effusions not significantly changed from prior CT. Respiratory motio n artifact degradation redemonstrated. No pneumothorax bilaterally. MEDIASTINUM: Lack of IV contrast is noted to limit evaluation for mediastinal and especially hilar ad enopathy. There are no definitive greater than 1 cm hilar or mediastinal lymph nodes. No significan t or pericardial effusion is seen. Persistent cardiomegaly. Persistent coronary artery calcification which is noted marker for underlying coronary artery disease. OTHER: Possible nonobstructing central left renal calculus last axial images. Mild multilevel spurr ing in the spine. IMPRESSION: Stable small to moderate right greater than left pleural effusions on background moderate to advanced underlying emphysematous change and cardiomegaly. No significant change from recent CT 6 days earlier.
[2019-03-07 18:59] LABS: Glucose,Whole Blood 371 mg/dL (75-99)
[2019-03-07 21:30] LABS: Glucose,Whole Blood 356 mg/dL (75-99)
[2019-03-07 23:07] LABS: Glucose,Whole Blood 235 mg/dL (75-99)
[2019-03-08 00:58] LABS: Glucose,Whole Blood 187 mg/dL (75-99)
[2019-03-08 03:56] LABS: Glucose,Whole Blood 260 mg/dL (75-99)
[2019-03-08 05:06] LABS: Glucose,Whole Blood 372 mg/dL (75-99)
[2019-03-08 07:03] LABS: Calcium 8.1 mg/dL (8.4-10.2); Potassium 3.4 mmol/L (3.5-5.1)
[2019-03-08 07:06] LABS: Glucose,Whole Blood 254 mg/dL (75-99)
[2019-03-08] MEDS: IPRATROPIUM-ALBUTEROL 3 ML NEB INHALATION SCH ×3 (07:27→16:51)
[2019-03-08] MEDS: FORMOTEROL FUMARATE 20 MCG/2 ML NEBU INHALATION SCH (07:27)
[2019-03-08] MEDS: BUDESONIDE 1 MG/2 ML NEBU INHALATION SCH (07:27)
[2019-03-08] MEDS: methylPREDNISolone SOD SUCCI 40 MG/ML 1 ML VIAL IV SCH (07:32)
[2019-03-08] MEDS: INSULIN ASPART (NovoLOG) 100 UNIT/ML VIAL SQ SCH ×2 (07:32→13:25)
[2019-03-08] MEDS: DEXTROSE 5% IN WATER 1,000 ML IV SCH (07:32)
[2019-03-08] MEDS: PANTOPRAZOLE 40 MG TABLET PO SCH (07:32)
[2019-03-08] MEDS: LORazepam 2 MG/ML INJ IV PRN (08:08)
[2019-03-08 09:07] LABS: Glucose,Whole Blood 211 mg/dL (75-99)
[2019-03-08] MEDS: METOPROLOL TARTRATE 25 MG TAB PO SCH (09:08)
[2019-03-08] MEDS: ASPIRIN 81 MG PO SCH (09:08)
[2019-03-08] MEDS: HEPARIN SODIUM,PORCINE 5,000 UNIT/ML 1 ML VIAL SQ SCH ×2 (09:08→16:56)
[2019-03-08] MEDS: LISINOPRIL 5 MG TAB PO SCH (09:09)
[2019-03-08] MEDS: ATORVASTATIN 20 MG TAB PO SCH (09:09)
[2019-03-08] MEDS: INSULIN REGULAR 100 UNIT in SODIUM CHLORIDE 0.9% 100 ML IV SCH (09:13)
[2019-03-08 11:19] LABS: Glucose,Whole Blood 275 mg/dL (75-99)
[2019-03-08 11:37] VITALS: BP 138/60; RESP 20; TEMP 98.9
[2019-03-08 13:23] LABS: Glucose,Whole Blood 283 mg/dL (75-99)
[2019-03-08 15:20] LABS: Glucose,Whole Blood 359 mg/dL (75-99)
--- NOTE | 2019-03-08 16:00 | P.PN ---
Subjective 83-year-old female was admitted for altered mental status secondary to CO2 narcosis. Patient has advanced COPD and patient is on BiPAP since her adm ission. Without any significant improvement patient sharath on BiPAP. And lengthy discussion with the considering her advanced COPD and in spite of aggressive therapy patient clinical condition did not change much and remains on BiPAP. After discussion with the who is agreeable to discuss hospice care, hospice services were consulted. 03/07/2019 Patient is actually feeling better was a week was able to eat some breakfast with little help patient yesterday had a laceration of the right hand has right hand is swollen and her skin is paper thin because of which we can do any sut ures. Apply pressure dressing. She is presently on aspirin and oxygen chest x- ray did show pulmonary edema patient does have extensive peripheral edema. Patient was started on Lasix which led to hyponatremia hypokalemia hyperchloremia and contraction alkalosis. 03/08/2019 Patient the including serum sodium improved serum potassium improved and the serum bicarbonate improved patient had contraction alkalosis creatinine improved as well. But her overall clinical condition is worse today. Patient has advancing her COPD is presently on 6 L of oxygen patient is expected to have ups and downs with his COPD exacerbation but her overall prognosis remains extremely poor same thing was discussed with the family who will discuss again regarding comfort care and hospice. Patient is more appropriate for hospice. Review of systems: Unable to obtain due to her clinical condition. But the patient did not have had that she is okay All inpatient medications were reviewed and appropriate changes in these medications as dictated in the interval history and assessment and plan. Objective - Vital Signs Vital signs: Vital Signs Temp 98.9 F 03/08/19 11:36 Pulse 84 03/08/19 11:36 Resp 20 03/08/19 11:36 BP 138/60 03/08/19 11:36 Pulse Ox 99 03/08/19 11:36 Intake & Output 03/07/19 03/08/19 03/08/19 18:59 06:59 18:59 Intake Total 253.723 54.849 433.368 Output Total 1200 340 Balance -946.277 -285.151 433.368 Weight 78 kg Intake: Intake, IV Titration 73.723 54.849 33.368 Amount Insulin Regular 100 unit 73.723 54.849 33.368 In Sodium Chloride 0.9% 100 ml @ Titrate IV .Q0M [facility] Rx#:[id number] Oral 180 400 Output: Urine 1200 340 Other: Voiding Method Indwelling Catheter Indwelling Catheter Indwelling Catheter - Exam PHYSICAL EXAMINATION: GENERAL: Arousable drowsy sleeping HEENT: Pupils are round and equally reacting to light. EOMI. No scleral icterus. No conjunctival pallor. Normocephalic, atraumatic. No pharyngeal erythema. No thyromegaly. CARDIOVASCULAR: S1 and S2 present. No murmurs, rubs, or gallops. PULMONARY: Decreased air entry into bilateral lung fitzgerald ABDOMEN: Soft, nontender, nondistended, normoactive bowel sounds. No palpable organomegaly. MUSCULOSKELETAL: No joint swelling or deformity. EXTREMITIES: No cyanosis, clubbing, extensive bilateral upper extremity edema some edema in the lower legs as well NEUROLOGICAL: Able to assess SKIN: No rashes. - Labs CBC & Chem 7: 03/07/19 05:33 03/08/19 06:00 Labs: Abnormal Lab Results - Last 24 Hours (Table) 03/07/19 03/07/19 03/07/19 Range/Units 17:03 18:58 21:28 Potassium (3.5-5.1) mmol/L Chloride (98-107) mmol/L Carbon Dioxide (22-30) mmol/L BUN (7-17) mg/dL Creatinine (0.52-1.04) mg/dL Glucose (74-99) mg/dL POC Glucose (mg/dL) 307 H 371 H 356 H (75-99) mg/dL Calcium (8.4-10.2) mg/dL 03/07/19 03/08/19 03/08/19 Range/Units 23:05 00:56 03:55 Potassium (3.5-5.1) mmol/L Chloride (98-107) mmol/L Carbon Dioxide (22-30) mmol/L BUN (7-17) mg/dL Creatinine (0.52-1.04) mg/dL Glucose (74-99) mg/dL POC Glucose (mg/dL) 235 H 187 H 260 H (75-99) mg/dL Calcium (8.4-10.2) mg/dL 03/08/19 03/08/19 03/08/19 Range/Units 05:05 06:00 07:05 Potassium 3.4 L (3.5-5.1) mmol/L Chloride 95 L (98-107) mmol/L Carbon Dioxide 48 H* (22-30) mmol/L BUN 65 H (7-17) mg/dL Creatinine 1.45 H (0.52-1.04) mg/dL Glucose 273 H (74-99) mg/dL POC Glucose (mg/dL) 372 H 254 H (75-99) mg/dL Calcium 8.1 L (8.4-10.2) mg/dL 03/08/19 03/08/19 03/08/19 Range/Units 09:05 11:17 13:22 Potassium (3.5-5.1) mmol/L Chloride (98-107) mmol/L Carbon Dioxide (22-30) mmol/L BUN (7-17) mg/dL Creatinine (0.52-1.04) mg/dL Glucose (74-99) mg/dL POC Glucose (mg/dL) 211 H 275 H 283 H (75-99) mg/dL Calcium (8.4-10.2) mg/dL 03/08/19 Range/Units 15:18 Potassium (3.5-5.1) mmol/L Chloride (98-107) mmol/L Carbon Dioxide (22-30) mmol/L BUN (7-17) mg/dL Creatinine (0.52-1.04) mg/dL Glucose (74-99) mg/dL POC Glucose (mg/dL) 359 H (75-99) mg/dL Calcium (8.4-10.2) mg/dL Assessment and Plan Plan: Metabolic and selective from CO2 narcosis and patient on BiPAP at this time . Patient on systemic steroids inhalational treatments. Congestive heart failure chronic diastolic dysfunction with acute exacerbation: Presently receiving IV fluids because of hypovolemia -Hyponatremia secondary to intravascular volume depletion -Hypokalemia secondary to Lasix which will be replaced -Contraction alkalosis secondary to Lasix intravascular depletion -Laceration of the right hand secondary to edema local wound care pressure dressing -Acute on chronic hypercapnic as well as hypercapnic respiratory failure secondary to COPD and further management as mentioned above 10 history of lung cancer status post chemoradiation in remission at this time on the left side left lung. -Type 2 diabetes mellitus next and have an hyperlipidemia -Hypertension -Acute renal failure: Appears to be secondary to heart failure exacerbation prerenal azotemia from that can you to hold off on lisinopril Her overall prognosis remains extremely poor, even if patient improves patient may not be able to stay home to long before she can she gets readmitted and her quality of life is not expected to be good because of these reasons hospice was disease discussed with the family.
[2019-03-08 17:05] VITALS: PULSE 84
[2019-03-08] MEDS ORDERED: methylPREDNISolone SOD SUCCI 40 MG/ML 1 ML VIAL IV SCH (21:00)
--- NOTE | 2019-03-09 09:24 | P.DS ---
Providers Date of admission: 02/27/19 14:43 Expected date of discharge: 03/08/19 Attending physician: Axel Cotter Consults: 02/27/19 14:44 Consult Physician Routine Consulting Provider: Toy Mcintosh Consult Reason/Comments: hypoxic respiratory failure, hypercarbia Do you want consulting provider notified?: Yes 02/27/19 14:59 Consult Physician Routine Consulting Provider: Crystal Flores Consult Reason/Comments: altered mental status Do you want consulting provider notified?: Yes 02/27/19 15:08 Consult Physician Routine Consulting Provider: Kemal Scherer Consult Reason/Comments: elevated troponini Do you want consulting provider notified?: Yes 03/06/19 18:02 Consult Physician Routine Consulting Provider: Margarito Fry Consult Reason/Comments: ruptured hematoma on right hand Do you want consulting provider notified?: Yes Primary care physician: Axel Cotter [facility] Course: Patient's family son in the decided and hospice patient is being admitted to inpatient hospice. Please refer to my progress note for further details. Patient Condition at Discharge: Fair Plan - Discharge Summary New Discharge Prescriptions: No Action Multivitamins, Thera [Multivitamin (formulary)] 1 tab PO DAILY Insulin Glargine [Lantus] 17 units SQ HS INSULIN ASPART (NovoLOG) [NovoLOG (formulary)] See Protocol INJ ACHS MDD 20 UNITS Atorvastatin [Lipitor] 20 mg PO DAILY Aspirin 81 mg PO DAILY Lisinopril [Zestril] 5 mg PO BID #180 tablet Metoprolol Tartrate [Lopressor] 50 mg PO BID-W/MEALS Albuterol Nebulized [Ventolin Nebulized] 2.5 mg INHALATION RT-Q6H PRN PRN Reason: Shortness Of Breath Bumetanide 2 mg PO DAILY Discharge Medication List Aspirin 81 mg PO DAILY 12/23/13 [History] Atorvastatin [Lipitor] 20 mg PO DAILY 12/23/13 [History] INSULIN ASPART (NovoLOG) [NovoLOG (formulary)] See Protocol INJ ACHS MDD 20 UNITS 12/23/13 [History] Insulin Glargine [Lantus] 17 units SQ HS 12/23/13 [History] Multivitamins, Thera [Multivitamin (formulary)] 1 tab PO DAILY 12/23/13 [History] Lisinopril [Zestril] 5 mg PO BID #180 tablet 05/16/16 [Rx] Metoprolol Tartrate [Lopressor] 50 mg PO BID-W/MEALS 09/01/18 [History] Albuterol Nebulized [Ventolin Nebulized] 2.5 mg INHALATION RT-Q6H PRN 03/01/19 [History] Bumetanide 2 mg PO DAILY 03/01/19 [History] Follow up Appointment(s)/Referral(s): Axel Cotter MD [Primary Care Provider] - 1-2 days Activity/Diet/Wound Care/Special Instructions: SHAQUILLE Terrazas [facility] hospice Discharge Disposition: DISCH TO HOSPICE MED [facility]
== END 2019-03-08 17:55 | disposition hospice, inpatient (51) | DRG 189 ==
LOC: EC 10:40 → 3SCARD 14:43 → 5NMEDONC 03-08 12:40
PROVIDERS: ADMIT Family Medicine; ATTEND Family Medicine
PROC: 5A09557 Assistance with Respiratory Ventilation, Greater than 96 Consecutive Hours, Continuous Positive Airway Pressure (ICD-10-PCS; principal; 2019-02-27)
DX: J96.21 Acute and chronic respiratory failure with hypoxia (principal); G92 Toxic encephalopathy; I50.33 Acute on chronic diastolic (congestive) heart failure; J44.1 Chronic obstructive pulmonary disease with (acute) exacerbation; C34.90 Malignant neoplasm of unspecified part of unspecified bronchus or lung; E87.0 Hyperosmolality and hypernatremia; E87.4 Mixed disorder of acid-base balance; I42.8 Other cardiomyopathies; N17.9 Acute kidney failure, unspecified; N39.0 Urinary tract infection, site not specified; J96.22 Acute and chronic respiratory failure with hypercapnia; E11.65 Type 2 diabetes mellitus with hyperglycemia; E55.9 Vitamin D deficiency, unspecified; E78.5 Hyperlipidemia, unspecified; E87.6 Hypokalemia; E87.8 Other disorders of electrolyte and fluid balance, not elsewhere classified; F17.200 Nicotine dependence, unspecified, uncomplicated; F41.9 Anxiety disorder, unspecified; H35.30 Unspecified macular degeneration; I11.0 Hypertensive heart disease with heart failure; I25.10 Atherosclerotic heart disease of native coronary artery without angina pectoris; M19.90 Unspecified osteoarthritis, unspecified site; S61.411A Laceration without foreign body of right hand, initial encounter; Z51.5 Encounter for palliative care; Z79.4 Long term (current) use of insulin; Z79.51 Long term (current) use of inhaled steroids; Z79.82 Long term (current) use of aspirin; Z79.899 Other long term (current) drug therapy; Z85.118 Personal history of other malignant neoplasm of bronchus and lung; Z86.12 Personal history of poliomyelitis; Z92.21 Personal history of antineoplastic chemotherapy; Z92.3 Personal history of irradiation; Z96.652 Presence of left artificial knee joint; Z99.81 Dependence on supplemental oxygen
CPT/HCPCS: 36415; 36600; 70450; 70496; 70498; 71045; 71250; 76604; 80048; 80053; 80061; 81001; 82140; 82803; 82805; 83605; 83735; 83880; 84484; 85025; 85027; 85610; 85730; 87040; 87086; 93005; 94640; 94660; 94760; 96361; 96365; 96367; 96375; 99291

== ENCOUNTER 2019-03-08 18:14 | Inpatient (IN) | payer MEDICAID ==
[2019-03-08] MEDS ORDERED: ATROPINE OPHTH SOLN 1% 5ML BTL SUBLINGUAL PRN (18:23)
[2019-03-08] MEDS ORDERED: ACETAMINOPHEN SUPPOSITORY 650 MG SUPP RECTAL PRN (18:23)
[2019-03-08] MEDS ORDERED: ONDANSETRON 4 MG/2 ML VIAL IVP PRN (18:23)
[2019-03-08] MEDS ORDERED: LORazepam 2 MG/ML INJ IV PRN (18:23)
[2019-03-08] MEDS ORDERED: DRY MOUTH SPRAY 44.3 SPRAY/44.3 ML SPRAY MUCOUS MEM PRN (18:23)
[2019-03-08] MEDS ORDERED: ARTIFICIAL TEARS-HYPROMELLOSE DROPS 15 ML BTL BOTH EYES PRN (18:23)
[2019-03-08] MEDS ORDERED: SCOPOLAMINE 1.5MG/72HR PATCH TRANSDERM SCH (18:30)
[2019-03-08] MEDS: HYDROmorphone 1 MG/ML 1 ML SYRINGE IVP PRN (20:30)
[2019-03-09 12:38] VITALS: BP 133/76; PULSE 88; RESP 17; TEMP 97.6
[2019-03-09] MEDS: HYDROmorphone 1 MG/ML 1 ML SYRINGE IVP PRN (12:46)
--- NOTE | 2019-03-09 16:42 | P.HPIM ---
History of Present Illness This dictation is both H&P and discharge summary Patient is admitted to inpatient hospice and was subsequently discharged to home with hospice. Patient has advanced COPD very poor lung reserve no significant improvement with aggressive treatment. Please refer to my dictation of progress note from yesterday for further details PHYSICAL EXAMINATION: GENERAL: Arousable drowsy sleeping patient is comfortable without any respiratory distress on oxygen Past Medical History Past Medical History: Asthma, Cancer, COPD, Diabetes Mellitus, Hyperlipidemia, Hypertension, Osteoarthritis (OA) Additional Past Medical History / Comment(s): LUNG CANCER-LEFT LUNG, PAIN IN FEET , MACULAR DEGENERATION, EDEMA IN LEG, kidney disease History of Any Multi-Drug Resistant Organisms: None Reported Past Surgical History: Appendectomy, Hernia Repair, Joint Replacement Additional Past Surgical History / Comment(s): UMBILICAL HERNIA, LEFT KNEE REPLACEMENT Past Anesthesia/Blood Transfusion Reactions: No Reported Reaction Past Psychological History: Anxiety Smoking Status: Former smoker Past Alcohol Use History: None Reported Past Drug Use History: None Reported - Past Family History Mother Family Medical History: No Reported History Additional Family Medical History / Comment(s): NO KNOWN HISTORY- ADOPTED Medications and Allergies Home Medications Medication Instructions Recorded Confirmed Type Metoprolol Tartrate [Lopressor] 50 mg PO BID-W/MEALS 09/01/18 03/08/19 History Albuterol Nebulized [Ventolin 2.5 mg INHALATION RT-Q6H PRN 03/01/19 03/08/19 History Nebulized] Bumetanide 2 mg PO DAILY 03/01/19 03/08/19 History Allergies Allergy/AdvReac Type Severity Reaction Status Date / Time No Known Allergies Allergy Verified 09/22/18 17:54 Physical Exam Vitals: Vital Signs Temp Pulse Resp BP Pulse Ox 03/09/19 12:54 92 L 03/09/19 12:37 97.6 F 88 17 133/76 100 03/09/19 05:45 98.5 F 89 18 106/54 98 03/09/19 00:00 104 H 20 03/08/19 21:11 98.6 F 104 H 20 115/57 91 L Intake and Output 03/09/19 03/09/19 03/09/19 06:59 14:59 22:59 Output Total 600 Balance -600 Output: Urine 600 Uretheral ([place]) 600
--- NOTE | 2019-03-09 16:42 | P.DS ---
Providers Date of admission: 03/08/19 18:20 Attending physician: Axel Cotter Primary care physician: Axel Cotter Hospital Course: Refer to HPI for further details Plan - Discharge Summary New Discharge Prescriptions: Discontinued Multivitamins, Thera [Multivitamin (formulary)] 1 tab PO DAILY Insulin Glargine [Lantus] 17 units SQ HS INSULIN ASPART (NovoLOG) [NovoLOG (formulary)] See Protocol INJ ACHS MDD 20 UNITS Atorvastatin [Lipitor] 20 mg PO DAILY Aspirin 81 mg PO DAILY Lisinopril [Zestril] 5 mg PO BID #180 tablet No Action Metoprolol Tartrate [Lopressor] 50 mg PO BID-W/MEALS Albuterol Nebulized [Ventolin Nebulized] 2.5 mg INHALATION RT-Q6H PRN PRN Reason: Shortness Of Breath Bumetanide 2 mg PO DAILY Discharge Medication List Metoprolol Tartrate [Lopressor] 50 mg PO BID-W/MEALS 09/01/18 [History] Albuterol Nebulized [Ventolin Nebulized] 2.5 mg INHALATION RT-Q6H PRN 03/01/19 [History] Bumetanide 2 mg PO DAILY 03/01/19 [History] Patient Instructions/Handouts: Hospice (DC) Discharge Disposition: HOME WITH HOSPICE
== END 2019-03-09 13:37 | disposition hospice, home (50) | DRG 951 ==
LOC: 5NMEDONC 18:20
PROVIDERS: ADMIT Family Medicine; ATTEND Family Medicine
DX: Z51.5 Encounter for palliative care (principal); E11.9 Type 2 diabetes mellitus without complications; E78.5 Hyperlipidemia, unspecified; Z96.652 Presence of left artificial knee joint; M19.90 Unspecified osteoarthritis, unspecified site; F41.9 Anxiety disorder, unspecified; I10 Essential (primary) hypertension; J44.9 Chronic obstructive pulmonary disease, unspecified; Z79.899 Other long term (current) drug therapy; Z85.118 Personal history of other malignant neoplasm of bronchus and lung; Z87.891 Personal history of nicotine dependence
CPT/HCPCS: 94760